=== PATIENT | female | born 1945 | race Caucasian/White ===

== ENCOUNTER → 2016-10-26 | Outpatient (CLI) | payer MEDICARE ==
[~2016-10-26] MED LIST: CALC-149 PO; CALC-656 PO; DCS100C PO; DIPH1TAB PO; EXEM25TA4 PO; FENO145T18 PO; FENO145T20 PO; GLIM1TAB PO; HYDR-34 PO; HYDR-3454 PO; IBP600T1 PO; INDA2.5T2 PO; LEVO500T69 PO; METR500T PO; MTF500T PO; MULT-963 PO; OXYC-12 PO; POTA8TAB PO; POTA8TAB6 PO; PRAV40TA PO; SAXA5TAB PO; SLOW-MAG64 M1 PO
[2016-10-26 09:30] LABS: BASOPHILS % (AUTO) 1 % (0-10); EOSINOPHILS # (AUTO) 0.1 10^3/uL (0.0-0.3); EOSINOPHILS % (AUTO) 1 % (0-10); LYMPHOCYTES # (AUTO) 1.4 X 10^3 (1.0-4.0); LYMPHOCYTES % (AUTO) 17 % (12-44); MEAN CORPUSCULAR HEMOGLOBIN 28 PG (25-34); MEAN CORPUSCULAR HGB CONC 33 G/DL (32-36); MEAN CORPUSCULAR VOLUME 86 FL (80-99); MEAN PLATELET VOLUME 9.3 FL (7.4-10.4); MONOCYTES # (AUTO) 0.4 X 10^3 (0.0-1.0); MONOCYTES % (AUTO) 5 % (0-12); NEUTROPHILS # (AUTO) 6.2 X 10^3 (1.8-7.8); NEUTROPHILS % (AUTO) 77 % (42-75); PLATELET COUNT 372 10^3/uL (130-400); RED BLOOD COUNT 4.89 10^6/uL (4.35-5.85); RED CELL DISTRIBUTION WIDTH 13.8 % (10.0-14.5); WHITE BLOOD COUNT 8.1 10^3/uL (4.3-11.0)
[2016-10-26 09:53] LABS: ALBUMIN 4.4 G/DL (3.2-4.5); BILIRUBIN,TOTAL 0.5 MG/DL (0.1-1.0); CALCIUM 9.7 MG/DL (8.5-10.1); CREATININE SERUM 1.04 MG/DL (0.60-1.30); POTASSIUM 3.5 MMOL/L (3.6-5.0); TOTAL PROTEIN 7.4 G/DL (6.4-8.2)
== END ==
LOC: ONC 09:22
PROVIDERS: ATTEND Internal Medicine Hematology & Oncology
DX: C50.411 Malignant neoplasm of upper-outer quadrant of right female breast (principal); Z17.0 Estrogen receptor positive status [ER+]; I10 Essential (primary) hypertension; E78.00 Pure hypercholesterolemia, unspecified; R73.9 Hyperglycemia, unspecified; Z90.11 Acquired absence of right breast and nipple; Z79.811 Long term (current) use of aromatase inhibitors
CPT/HCPCS: 80053; 85025; 99213

== ENCOUNTER 2017-04-13 08:52 | Outpatient (RCR) | payer MEDICARE ==
[2017-04-13 09:22] LABS: BASOPHILS # (AUTO) 0.1 10^3/uL (0.0-0.1); BASOPHILS % (AUTO) 1 % (0-10); EOSINOPHILS # (AUTO) 0.1 10^3/uL (0.0-0.3); EOSINOPHILS % (AUTO) 1 % (0-10); HEMATOCRIT 43 % (35-52); HEMOGLOBIN 14.3 G/DL (11.5-16.0); LYMPHOCYTES # (AUTO) 1.5 X 10^3 (1.0-4.0); LYMPHOCYTES % (AUTO) 18 % (12-44); MEAN CORPUSCULAR HEMOGLOBIN 29 PG (25-34); MEAN CORPUSCULAR HGB CONC 34 G/DL (32-36); MEAN CORPUSCULAR VOLUME 85 FL (80-99); MEAN PLATELET VOLUME 9.4 FL (7.4-10.4); MONOCYTES # (AUTO) 0.4 X 10^3 (0.0-1.0); MONOCYTES % (AUTO) 5 % (0-12); NEUTROPHILS # (AUTO) 6.1 X 10^3 (1.8-7.8); NEUTROPHILS % (AUTO) 75 % (42-75); PLATELET COUNT 349 10^3/uL (130-400); RED CELL DISTRIBUTION WIDTH 13.9 % (10.0-14.5); WHITE BLOOD COUNT 8.1 10^3/uL (4.3-11.0)
[2017-04-13 09:35] LABS: ALBUMIN 4.5 GM/DL (3.2-4.5); BILIRUBIN,TOTAL 0.4 MG/DL (0.1-1.0); CALCIUM 9.7 MG/DL (8.5-10.1); CREATININE SERUM 0.95 MG/DL (0.60-1.30); POTASSIUM 3.6 MMOL/L (3.6-5.0); TOTAL PROTEIN 7.9 GM/DL (6.4-8.2)
== END 2017-07-12 | disposition home or self-care (01) ==
LOC: ONC 08:52
PROVIDERS: ATTEND Internal Medicine Hematology & Oncology
DX: C50.411 Malignant neoplasm of upper-outer quadrant of right female breast (principal); Z17.0 Estrogen receptor positive status [ER+]; I10 Essential (primary) hypertension; E78.00 Pure hypercholesterolemia, unspecified; R73.9 Hyperglycemia, unspecified; Z90.11 Acquired absence of right breast and nipple; Z79.811 Long term (current) use of aromatase inhibitors
CPT/HCPCS: 80053; 85025; 99213

== ENCOUNTER → 2017-05-09 | Outpatient (CLI) | payer MEDICARE ==
--- NOTE | 2017-05-09 14:28 | Diagnostic Imaging Report ---
Three views of the lumbar spine. INDICATION: Back pain. FINDINGS: There is satisfactory alignment of the lumbar spine. There is a right convexity scoliotic curvature centered around L4 level. The vertebral body heights are preserved. There is tmmqetfs-ao-whxyrq disc height loss at the L5-S1 level with vacuum phenomenon seen. Prominent endplate sclerotic changes are noted at this level. Sclerotic degenerative changes at the lower lumbar spine facet joints also seen. The paraspinous soft tissues demonstrate surgical clips in the anterior lower aspect of the abdomen to the right of the midline. IMPRESSION: Degenerative changes most prominent at the L5-S1 disc and lower lumbar spine facet joints. Dictated by: Dictated on workstation # [id number]
--- NOTE | 2017-05-09 14:31 | Diagnostic Imaging Report ---
Three views of the thoracic spine. INDICATION: Back pain. FINDINGS: There is a left convexity scoliotic curvature centered around the lower thoracic spine. The alignment at the posterior spinal line is satisfactory. There are anterior osteophytes seen at multiple levels with no posterior osteophyte identified. The vertebral body heights and disc heights appear preserved. The paraspinal soft tissues appear unremarkable. IMPRESSION: Scoliosis and degenerative changes. Dictated by: Dictated on workstation # [id number]
== END ==
LOC: RAD 12:29
PROVIDERS: ATTEND Internal Medicine Hematology & Oncology
DX: M47.817 Spondylosis without myelopathy or radiculopathy, lumbosacral region (principal); R29.890 Loss of height
CPT/HCPCS: 72072; 72100

== ENCOUNTER → 2017-06-01 | Outpatient (CLI) | payer MEDICARE ==
--- NOTE | 2017-06-01 15:41 | Diagnostic Imaging Report ---
EXAMINATION: DEXA scan. INDICATION: Osteopenia. TECHNIQUE: Bone mineral density estimated based on dual energy radiography over the lumbar spine and femoral necks was performed. FINDINGS: The lumbar spine T-score is 0.7. This is 6.8% decreased density measurement compared to 01/08/2015. The T-score over the left femoral neck is 0.5 and over the right femoral neck is 0.4. This is 0.8% decreased density measurement compared to the previous exam. IMPRESSION: Bone mineral density is within normal limits. Dictated by: Dictated on workstation # [id number]
== END ==
LOC: RAD 10:10
PROVIDERS: ATTEND Internal Medicine Hematology & Oncology
DX: M85.88 Other specified disorders of bone density and structure, other site (principal); M54.9 Dorsalgia, unspecified; R29.890 Loss of height; Z78.0 Asymptomatic menopausal state; Z51.81 Encounter for therapeutic drug level monitoring
CPT/HCPCS: 77080

== ENCOUNTER → 2017-09-14 | Outpatient (CLI) | payer MEDICARE ==
--- NOTE | 2017-09-14 08:27 | Diagnostic Imaging Report ---
INDICATION: Right leg pain. Right leg venous Doppler study was performed in the routine fashion with color flow Doppler and waveform analysis. FINDINGS: The right common femoral vein, superficial femoral vein, popliteal vein and visualized portion of the tibial veins show normal compressibility and venous flow patterns. There is normal augmentation. IMPRESSION: No evidence of deep vein thrombosis of the major veins of the right leg. Dictated by: Dictated on workstation # [id number]
== END ==
LOC: RAD 07:32
PROVIDERS: ATTEND Internal Medicine
DX: M79.604 Pain in right leg (principal); R60.0 Localized edema

== ENCOUNTER 2017-11-15 10:42 | Outpatient (RCR) | payer MEDICARE | END 2017-11-15 15:20 | disposition home or self-care (01) | PROVIDERS: ATTEND Internal Medicine | DX: I87.2 Venous insufficiency (chronic) (peripheral) (principal); L30.9 Dermatitis, unspecified ==

== ENCOUNTER 2017-12-27 11:17 | Observation (INO) | payer MEDICARE ==
[~2017-12-27] VITALS: Ht 160 cm; Wt 81.4 kg
--- NOTE | 2017-12-27 11:45 | History & Physical-Hospitalist ---
History of Present Illness HPI/Chief Complaint Pt is a 72yoCF with PMH DMII, HLD, and HTN who presented as a direct admission after evaluation at her PCP's for a syncopal episode. She reports that she had 4 episodes of chest burning associated with a sweet/sickening smell and that she felt "bubbly" all over and felt sick to her stomach during that episode. They occurred when she was up walking. She reports that this has gone on intermittently for years but was only "once in a [place]" and she never had as many episodes or subsequent syncope due to this. She denies any tongue biting , incontinence, or post ictal period. She denies any symptoms at this time. Source: patient Date Seen 12/27/17 Time Seen by Provider: 11:40 Attending Physician Annmarie Preston MD PCP David Montelongo MD Referring Physician Date of Admission Dec 27, 2017 at 11:30 am Home Medications & Allergies Home Medications Reviewed patient Home Medication Reconciliation performed by pharmacy medication reconciliations automotive refinish technician and/or nursing. Patients Allergies have been reviewed. Allergies Allergies Coded Allergies amoxicillin (Unverified Allergy, Unknown, HIVES, 12/09/13) anastrozole (Unverified Allergy, Unknown, RASH, 12/09/13) latex (Unverified Allergy, Unknown, RASH, 12/09/13) letrozole (Verified Adverse Reaction, Unknown, "MUSCLE ACHES", 12/09/13) pravastatin (Unverified Adverse Reaction, Unknown, "MUSCLE ACHES", 12/09/13) simvastatin (Verified Adverse Reaction, Unknown, "MUSCLE ACHES", 12/09/13) Uncoded Allergies arim ( Allergy, Mild, itch and joint pain, 09/04/14) Past Ctwydga-[id number]-Tbgmkb Hx Past Med/Social Hx: Reviewed Nursing Past Med/Soc Hx, Reviewed and Corrections made Patient Social History 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[employer]) Smoking Status: Former Smoker (quit over 50 years ago) Recent Foreign Travel: No Contact w/other who traveled: No Immunizations Up To Date Tetanus Booster (TDap): More than 5yrs Pediatric: No Date of Pneumonia Vaccine: Jun 05, 2011 Date of Influenza Vaccine: Apr 05, 2013 Past Medical History Surgeries: Breast, Gallbladder, Hysterectomy Cardiac: High Cholesterol, Hypertension Reproductive: Yes (Adnexal Mass) Sexually Transmitted Disease: No HIV/AIDS: No Female Reproductive Disorders: Ovarian Cyst Gastrointestinal: Gall Bladder Disease Musculoskeletal: Arthritis, Chronic Back Pain Endocrine: Diabetes, Non-Insulin dep HEENT: Cataract Loss of Vision: Denies Hearing Impairment: Denies Cancer: Breast Adverse Reaction to Blood Hunter: No Family History Reviewed Nursing Family Hx Family history: Cardiovascular disease 03 FATHER 03 MOTHER 09 BROTHER Family history: Coronary thrombosis 03 MOTHER 09 BROTHER Stroke 03 FATHER Review of Systems Constitutional: No fever EENTM: No blurred vision, No double vision, No nose congestion, No throat pain Respiratory: No cough, No dyspnea on exertion, No short of breath Cardiovascular: chest pain (burning); No edema, No palpitations; syncope Gastrointestinal: No abdominal pain, No constipation, No diarrhea; nausea; No vomiting Genitourinary: No dysuria, No frequency, No hematuria, No incontinence Musculoskeletal: No joint pain, No muscle pain Skin: No lesions, No rash Psychiatric/Neurological: Denies Headache, Denies Numbness, Denies Tingling Physical Exam Physical Exam Vital Signs Vital Signs - First Documented 12/27/17 11:50 Temp 99.6 Pulse 91 Resp 20 B/P (MAP) 131/73 (92) Pulse Ox 95 O2 Delivery Room Air Capillary Refill : Height, Weight, BMI Height: 5'6.00" Weight: 147lbs. 2.0oz. 66.555801ds; BMI Method: General Appearance: No Apparent Distress, WD/WN HEENT: PERRL/EOMI, Moist Mucous Membranes Neck: Non Tender, Supple Respiratory: Lungs Clear, No Respiratory Distress Cardiovascular: Regular Rate, Rhythm, No Murmur Gastrointestinal: Normal Bowel Sounds, Non Tender, Soft Extremity: Normal Capillary Refill, No Calf Tenderness Neurologic/Psychiatric: Alert, Oriented x3, Normal Mood/Affect Skin: Normal Color, Warm/Dry Results Results/Procedures Labs Laboratory Tests 12/27/17 11:57 Patient resulted labs reviewed. Assessment/Plan Admission Diagnosis Syncope Admission Status: Observation Diagnosis/Problems Diagnosis/Problems (1) Syncope Assessment & Plan: Syncopal episode this AM Monitor on Telemetry Consult cardiology, discussed with Dr Tapia CBC, CMP, and Troponin ordered Well's criteria is 0 Qualifiers: Encounter type: initial encounter (2) Non-insulin dependent type 2 diabetes mellitus Status: Chronic Assessment & Plan: SSI (3) Prophylactic measure Assessment & Plan: Lovenox Saline Lock [facility] ANNMARIE Vega MD Dec 27, 2017 11:45 am
[2017-12-27] MEDS ORDERED: GLIM1TAB PO (11:47)
[2017-12-27] MEDS ORDERED: INDA2.5T2 PO (11:47)
[2017-12-27] MEDS ORDERED: SPIR50TA4 PO (11:47)
[2017-12-27 11:50] VITALS: BP 131/73
[2017-12-27] MEDS ORDERED: CHOL20003 PO (12:00)
[2017-12-27] MEDS ORDERED: OMG1KC PO (12:00)
[2017-12-27] MEDS ORDERED: ACET-2267 PO (12:01)
[2017-12-27 12:04] LABS: BASOPHILS % (AUTO) 0 % (0-10); EOSINOPHILS % (AUTO) 0 % (0-10); HEMATOCRIT 42 % (35-52); HEMOGLOBIN 14.2 G/DL (11.5-16.0); LYMPHOCYTES # (AUTO) 0.8 X 10^3 (1.0-4.0); LYMPHOCYTES % (AUTO) 7 % (12-44); MEAN CORPUSCULAR HEMOGLOBIN 28 PG (25-34); MEAN CORPUSCULAR HGB CONC 34 G/DL (32-36); MEAN CORPUSCULAR VOLUME 83 FL (80-99); MEAN PLATELET VOLUME 9.1 FL (7.4-10.4); MONOCYTES # (AUTO) 0.4 X 10^3 (0.0-1.0); MONOCYTES % (AUTO) 3 % (0-12); NEUTROPHILS # (AUTO) 10.8 X 10^3 (1.8-7.8); NEUTROPHILS % (AUTO) 90 % (42-75); PLATELET COUNT 336 10^3/uL (130-400); RED BLOOD COUNT 5.03 10^6/uL (4.35-5.85); RED CELL DISTRIBUTION WIDTH 14.3 % (10.0-14.5)
[2017-12-27 12:26] LABS: BUN/CREATININE RATIO 16; CALCIUM 9.7 MG/DL (8.5-10.1); CARBON DIOXIDE 25 MMOL/L (21-32); CHLORIDE 99 MMOL/L (98-107); CREATININE SERUM 0.85 MG/DL (0.60-1.30); GFR ESTIMATED > 60; GLUCOSE 157 MG/DL (70-105); POTASSIUM 3.6 MMOL/L (3.6-5.0); SODIUM 135 MMOL/L (135-145)
[2017-12-27 13:02] LABS: LYMPHOCYTES % (MANUAL) 8 %; MONOCYTES % (MANUAL) 1 %; NEUTROPHILS % (MANUAL) 91 %; RBC MORPH NORMAL
[2017-12-27] MEDS ORDERED: CATHETER FLUSH 10 ML SYR IV PRN (13:30)
[2017-12-27] MEDS ORDERED: ENOXAPARIN 40 MG/0.4 ML (LOVENOX) SYR SC SCH (14:00)
[2017-12-27] MEDS: CATHETER FLUSH 10 ML SYR IV SCH ×2 (14:13→22:00)
[2017-12-27] MEDS ORDERED: ACETAMINOPHEN 500 MG TAB (TYLENOL) PO PRN (15:15)
[2017-12-27] MEDS ORDERED: ANTACID SUSP 30 ML UDC (MYLANTA) PO PRN (15:15)
[2017-12-27] MEDS ORDERED: ONDANSETRON 4 MG/2 ML (SDV) Z0FRAN IV PRN (15:15)
[2017-12-27] MEDS ORDERED: MILK OF MAGNESIA 400 MG/5 ML 30 ML UDC PO PRN (15:15)
[2017-12-27] MEDS ORDERED: ACETAMINOPHEN 325 MG TABLET PO PRN (15:30)
[2017-12-27] MEDS: inSUlin ASPART (NovoLOG) 1 UNIT/0.01 ML (CHARGE PER UNIT) SC SCH ×2 (16:13→21:00)
[2017-12-27 16:18] VITALS: BP 146/68
--- NOTE | 2017-12-27 19:45 | Consultation-Cardiology ---
HPI-Cardiology Cardiology Consultation: Date of Consultation 12/27/17 Date of Admission Attending Physician Annmarie Preston MD Admitting Physician David Montelongo MD Consulting Physician Ayla TAPIA MD HPI: Time Seen by Provider: 19:45 Chief Complaint: chest burning and syncope This is a 72-year-old lady with history of diabetes, hyperlipidemia and hypertension who presented to her PCP office for syncopal episode. She had episodes of chest burning which was associated with sweet smelling sensation which gradually came down to her chest as burning. Burning sensation in bilateral upper extremities as well. She also complained of feeling sick to her stomach with nausea. She then went to the restroom and had a bowel movement after which she passed out. She denied having any seizure-like activity which including tongue biting and incontinence. According to the patient she's had significant workup which included PET scan in the past. Review of Systems-Cardiology Review of Systems Constitutional: As described under HPI; No As described under HPI, No no symptoms reported, No chills, No fever; lightheadedness Eyes: No As described under HPI, No no symptoms reported, No blindness, No blurred vision, No contact lenses, No drainage, No decreased acuity, No foreign body sensation, No pain, No vision change Ears/Nose/Throat: No As described under HPI, No no symptoms reported, No chronic hearing loss, No ear discharge, No ear pain, No nasal drainage, No ulcerations Respiratory: No no symptoms reported; As described under HPI; No As described under HPI, No cough, No orthopnea, No shortness of breath, No SOB with excertion Cardiovascular: No no symptoms reported; As described under HPI; No As described under HPI; chest pain; No edema, No irregular heart rate, No lightheadedness, No palpitations Gastrointestinal: No no symptoms reported, No As described under HPI, No abdomen distended, No abdominal pain, No blood streaked bowels, No constipation , No diarrhea, No nausea, No vomiting; nausea/vomiting/diarrhea; No stool coloration changes Genitourinary: No As described under HPI, No burning, No dysuria, No discharge , No frequency, No flank pain, No hematuria, No urgency : Yes : No Musculoskeletal: No no symptoms reported, No As describe under HPI, No back pain, No gout, No joint pain, No joint swelling, No muscle pain, No muscle stiffness, No neck pain, No other Skin: No no symptoms reported, No As described under HPI, No change in color, No change in hair/nails, No dryness, No lesions, No lumps, No rash, No other, No skin related problems, No ulcerations, No rash on exposed areas, No ulcerations on exposed areas Psychiatric/Neurological: numbness; No anxiety, No depression, No seizure, No focal weakness, No syncope Hematologic: No no symptoms reported, No As described under HPI, No anemia, No blood clots, No easy bleeding, No easy bruising, No swollen glands, No other, No bleeding abnormalities CLM-Mngcxn-Xvahbc Hx Patient Social History 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 Family Medical History Family History: Family history: Cardiovascular disease 03 FATHER 03 MOTHER 09 BROTHER Family history: Coronary thrombosis 03 MOTHER 09 BROTHER Stroke 03 FATHER Allergies and Home Medications Allergies Coded Allergies: amoxicillin (Unverified Allergy, Unknown, HIVES, 12/09/13) anastrozole (Unverified Allergy, Unknown, RASH, 12/09/13) latex (Unverified Allergy, Unknown, RASH, 12/09/13) letrozole (Verified Adverse Reaction, Unknown, "MUSCLE ACHES", 12/09/13) pravastatin (Unverified Adverse Reaction, Unknown, "MUSCLE ACHES", 12/09/13) simvastatin (Verified Adverse Reaction, Unknown, "MUSCLE ACHES", 12/09/13) Uncoded Allergies: arim (Allergy, Mild, itch and joint pain, 09/04/14) Home Medications Acetaminophen 500 Mg Tablet, 500 MG PO Q4H PRN for PAIN-MILD, (Reported) Cholecalciferol (Vitamin D3) 2,000 Unit Capsule, 2,000 UNIT PO DAILY, (Reported) Glimepiride 1 Mg Tablet, 1 MG PO DAILY, (Reported) Indapamide 2.5 Mg Tablet, 2.5 MG PO DAILY, (Reported) [place] 3 Polyunsat Fatty Acids 1,000 Mg Cap, 2,000 MG PO DAILY, (Reported) Spironolactone 50 Mg Tablet, 50 MG PO DAILY, (Reported) Patient Home Medication List Home Medication List Reviewed: Yes Physical Exam-Cardiology Physical Exam Vital Signs/I&O 12/28/17 12/28/17 12/28/17 12/28/17 00:00 01:00 04:00 07:00 Temp 97.6 97.1 Pulse 69 67 67 66 Resp 16 16 B/P (MAP) 121/57 (78) 126/61 (82) Pulse Ox 97 95 O2 Delivery Room Air Room Air 12/28/17 00:00 Intake Total 1750 ml Balance 1750 ml Capillary Refill : Constitutional: appears stated age, AAO x 3; No apparent distress; well- developed, well-nourished HEENT: PERRL; No normal ENT inspection, No TMs normal, No pharynx normal, No scleral icterus (R), No scleral icterus (L), No pale conjunctivae (R), No pale conjunctivae (L), No photophobia, No TM abnormal (R), No TM abnormal (L), No pharyngeal erythema, No tonsillar exudate, No other, No discharge, No EOMI; hearing is well preserved; No hard of hearing; oral hygience is good; No ulceration, No xanthelasmas are seen Neck: No non-tender, No full range of motion, No supple, No normal inspection, No carotid bruit, No limited range of motion, No lymphadenopathy (R), No lymphadenopathy (L), No tender lateral, No tender midline, No thyromegaly, No other; carotid pulses are 2 + bilaterally; No with good upstrokes Respiratory: chest is bilaterally symmetric, lungs clear to auscultation Cardiovascular: regular rate-rhythm; No irregularly irregular, No extra beats, No parasternal heave is noted, No JVD, No edema, No bradycardia, No tachycardia , No point of maximal impulse, No cardiac thrills are palpable; S1 and S2; No gallop/S3, No gallop/S4, No diastolic murmur, No systolic murmur, No friction rub, No click, No other Gastrointestinal: No tender, No soft, No round, No distended, No pulsatile mass , No organomegaly, No guarding, No rebound, No tenderness, No hernia, No mass, No audible bowel sounds, No abnormal bowel sounds, No abdominal bruits, No spleenomegaly, No other Rectal: deferred Extremities: No normal range of motion, No non-tender, No normal inspection, No pedal edema, No calf tenderness, No normal capillary refill, No pelvis stable , No calf tenderness, No inflammation, No pedal edema, No slow capillary refill , No swelling, No other, No abrasion, No clubbing, No cyanosis, No ecchymosis, No laceration, No no lower extremity edema bilateral, No significant edema, No tenderness, No wound Neurologic/Psychiatric: no motor/sensory deficits, alert, normal mood/affect, oriented x 3, power is 5/5 both on sides Skin: No normal color, No warm/dry, No cyanosis, No cool, No diaphoresis, No damp, No ecchymosis, No jaundice, No mottled, No pallor, No rash, No tattoos/ piercings, No ulcerations, No rash on exposed areas, No ulcerations on exposed areas, No other Data Review Labs Laboratory Tests 12/27/17 11:57: White Blood Count 12.0H, Red Blood Count 5.03, Hemoglobin 14.2, Hematocrit 42, Mean Corpuscular Volume 83, Mean Corpuscular Hemoglobin 28, Mean Corpuscular Hemoglobin Concent 34, Red Cell Distribution Width 14.3, Platelet Count 336, Mean Platelet Volume 9.1, Neutrophils (%) (Auto) 90H, Lymphocytes (%) (Auto) 7L , Monocytes (%) (Auto) 3, Eosinophils (%) (Auto) 0, Basophils (%) (Auto) 0, Neutrophils # (Auto) 10.8H, Lymphocytes # (Auto) 0.8L, Monocytes # (Auto) 0.4, Eosinophils # (Auto) 0.0, Basophils # (Auto) 0.0, Neutrophils % (Manual) 91, Lymphocytes % (Manual) 8, Monocytes % (Manual) 1, Blood Morphology Comment NORMAL, Sodium Level 135, Potassium Level 3.6, Chloride Level 99, Carbon Dioxide Level 25, Anion Gap 11, Blood Urea Nitrogen 14, Creatinine 0.85, Estimat Glomerular Filtration Rate > 60, BUN/Creatinine Ratio 16, Glucose Level 157H, Calcium Level 9.7, Troponin I < 0.30 12/27/17 16:07: Glucometer 123H 12/27/17 21:32: Glucometer 101 12/28/17 05:57: Glucometer 132H 12/28/17 06:14: White Blood Count 7.2, Red Blood Count 4.55, Hemoglobin 13.5, Hematocrit 38, Mean Corpuscular Volume 84, Mean Corpuscular Hemoglobin 30, Mean Corpuscular Hemoglobin Concent 35, Red Cell Distribution Width 14.1, Platelet Count 285, Mean Platelet Volume 9.3, Neutrophils (%) (Auto) 72, Lymphocytes (%) (Auto) 17, Monocytes (%) (Auto) 9, Eosinophils (%) (Auto) 2, Basophils (%) (Auto) 1, Neutrophils # (Auto) 5.2, Lymphocytes # (Auto) 1.2, Monocytes # (Auto) 0.6, Eosinophils # (Auto) 0.1, Basophils # (Auto) 0.1, Sodium Level 135, Potassium Level 3.3L, Chloride Level 103, Carbon Dioxide Level 23, Anion Gap 9, Blood Urea Nitrogen 11, Creatinine 0.75, Estimat Glomerular Filtration Rate > 60, BUN/ Creatinine Ratio 15, Glucose Level 134H, Calcium Level 8.9 ECG Impression ECG Initial ECG Rhythm: Normal Sinus Initial ECG Impression: Normal A/P-Cardiology Assessment/Admission Diagnosis Chest burning, Syncope, Diabetes, Hypertension, Hyperlipidemia Plan Chest burning, acute coronary syndrome was ruled out with negative serial troponin. Negative EKG. i will recommend echocardiogram and nuclear stress test tomorrow since patient has significant risk factors for obstructive CAD including diabetes, hypertension and hyperlipidemia. Syncope, echocardiogram, continue on telemetry. Will likely require an event monitor as an outpatient. Neurological etiology needs to be ruled out since the history is not very convincing for a cardiac etiology. Diabetes, oral hypoglycemics. Hypertension, continue indapamide. Hyperlipidemia, statin therapy. Thank you for your consultation. Please call me if you have any questions. Nilson Tapia MD, FACP, FACC, FSCAI, FHRS, CCDS Interventional Cardiology Cardiac Electrophysiology Vascular Medicine and Endovascular Interventions Clinical Quality Measures DVT/VTE Risk/Contraindication: Risk Factor Score Per Nursin RFS Level Per Nursing on Admit: 3=High Ayla TAPIA MD Dec 27, 2017 7:45 pm
[2017-12-27 20:44] VITALS: BP 152/69
[2017-12-28] VITALS (7 sets, daily range): BP systolic 119–149; BP diastolic 57–86
[2017-12-28] MEDS: CATHETER FLUSH 10 ML SYR IV SCH (06:00)
[2017-12-28] MEDS: inSUlin ASPART (NovoLOG) 1 UNIT/0.01 ML (CHARGE PER UNIT) SC SCH ×2 (06:00→11:48)
[2017-12-28 06:24] LABS: BASOPHILS # (AUTO) 0.1 10^3/uL (0.0-0.1); BASOPHILS % (AUTO) 1 % (0-10); EOSINOPHILS # (AUTO) 0.1 10^3/uL (0.0-0.3); EOSINOPHILS % (AUTO) 2 % (0-10); HEMATOCRIT 38 % (35-52); HEMOGLOBIN 13.5 G/DL (11.5-16.0); LYMPHOCYTES # (AUTO) 1.2 X 10^3 (1.0-4.0); LYMPHOCYTES % (AUTO) 17 % (12-44); MEAN CORPUSCULAR HEMOGLOBIN 30 PG (25-34); MEAN CORPUSCULAR HGB CONC 35 G/DL (32-36); MEAN CORPUSCULAR VOLUME 84 FL (80-99); MEAN PLATELET VOLUME 9.3 FL (7.4-10.4); MONOCYTES # (AUTO) 0.6 X 10^3 (0.0-1.0); MONOCYTES % (AUTO) 9 % (0-12); NEUTROPHILS # (AUTO) 5.2 X 10^3 (1.8-7.8); NEUTROPHILS % (AUTO) 72 % (42-75); PLATELET COUNT 285 10^3/uL (130-400); RED BLOOD COUNT 4.55 10^6/uL (4.35-5.85); RED CELL DISTRIBUTION WIDTH 14.1 % (10.0-14.5); WHITE BLOOD COUNT 7.2 10^3/uL (4.3-11.0)
[2017-12-28 06:43] LABS: BUN/CREATININE RATIO 15; CALCIUM 8.9 MG/DL (8.5-10.1); CARBON DIOXIDE 23 MMOL/L (21-32); CHLORIDE 103 MMOL/L (98-107); CREATININE SERUM 0.75 MG/DL (0.60-1.30); GFR ESTIMATED > 60; GLUCOSE 134 MG/DL (70-105); POTASSIUM 3.3 MMOL/L (3.6-5.0); SODIUM 135 MMOL/L (135-145)
[2017-12-28] MEDS ORDERED: REGADENOSON 0.4 MG/5 ML SYR (LEXISCAN) IV ONE ×2 (08:59→10:15)
[2017-12-28] MEDS ORDERED: INDAPAMIDE 2.5 MG (LOZOL) TAB PO SCH (11:00)
--- NOTE | 2017-12-28 11:47 | Discharge Inst-Simple/Standard ---
Discharge Inst-Standard Patient Instructions/Follow Up Plan of Care/Instructions/FU: Please continue to take your medications as written. Please follow up with Dr Montelongo in the next week. Activity as Tolerated: Yes Discharge Diet: ADA Diet Return to The Hospital For: Chest pain, SOB, syncope, if you feel you are getting worse. MONISHA RENNER MD Dec 28, 2017 11:47 am
--- NOTE | 2017-12-28 16:58 | Cardiology Stress Test Report ---
Stress Test Report Type of NM Stress Test: Test Type: LEXISCAN 0.4MG/5ML Date of Procedure/Referring: Date of Procedure: Dec 28, 2017 PCP Annmarie Preston MD Admitting Physician David Montelongo MD Indications: Chest burning, syncope Baseline Blood Pressure: Blood Pressure Systolic: 140 Blood Pressure Diastolic: 67 Baseline EKG: Baseline EKG: sinus rhythm Summary: The patient was brought to the stress lab after informed consent was taken. Lexiscan stress test was performed according to the protocol. 0.4 mg of IV Lexiscan was given. Low-grade exercise was performed. Baseline EKG showed sinus rhythm at 70 BPM with blood pressure 130/63 mmHg. Maximum heart rate of 94 bpm and blood pressure of 149/86 mmHg. No chest pain, EKG changes or arrhythmias were noted. 10.95 mCi of Myoview were given for rest imaging and 29.5 mCi of Myoview were given for stress imaging. Transient ischemic dilatation score 1.06. Ejection fraction 73 percent with no wall motion abnormalities. Normal perfusion was noted during stress and rest imaging. Conclusion: Pharmacological stress test is negative. Normal LV function. Normal myocardial perfusion during rest and stress. Ayla ELISE MD Dec 28, 2017 16:58
[2017-12-29] MEDS ORDERED: INDAPAMIDE 2.5 MG PO SCH (09:00)
--- NOTE | 2018-01-03 15:31 | Physician Query-Final Dx ---
HERNANDEZ CAMPOS 01/03/18 1531: Final Diagnosis Give Final Diagnosis Please give Final Diagnosis MONISHA RENNER MD 01/08/182037: Final Diagnosis Give Final Diagnosis Syncope HERNANDEZ CAMPOS Jan 03, 2018 15:31 MONISHA RENNER MD Jan 08, 2018 20:38
== END 2017-12-28 15:43 | disposition home or self-care (01) ==
LOC: 4TH 11:30 → UNDOADMIN 11:30 → 4TH 11:50 → EDSTATUS 16:05 → 4TH 12-28 13:37 → UNDODISIN 12-28 15:43
PROVIDERS: ADMIT Internal Medicine; ATTEND Family Medicine
DX: R55 Syncope and collapse (principal); E11.9 Type 2 diabetes mellitus without complications; R07.89 Other chest pain; R20.8 Other disturbances of skin sensation; E78.00 Pure hypercholesterolemia, unspecified; E78.5 Hyperlipidemia, unspecified; I10 Essential (primary) hypertension; Z87.891 Personal history of nicotine dependence; Z79.84 Long term (current) use of oral hypoglycemic drugs
CPT/HCPCS: 36415; 78452; 80048; 82962; 84484; 85007; 85025; 85027; 93017; 93306; 99211; G0378

== ENCOUNTER 2017-12-28 16:32 | Outpatient (RCR) | payer MEDICARE ==
[~2017-12-28 16:32] MED LIST changes: +ACET-2267 PO; +CHOL20003 PO; +OMG1KC PO; +SPIR50TA4 PO
== END 2018-01-02 | disposition home or self-care (01) ==
LOC: CARD 16:32
PROVIDERS: ATTEND Internal Medicine Interventional Cardiology
DX: R55 Syncope and collapse (principal)
CPT/HCPCS: 93225; 93226

== ENCOUNTER 2018-02-01 09:30 | Outpatient (RCR) | payer MEDICARE | END 2018-02-02 | disposition home or self-care (01) | LOC: CARD 09:30 | PROVIDERS: ATTEND Internal Medicine Interventional Cardiology | DX: R55 Syncope and collapse (principal) | CPT/HCPCS: 93270 ==

== ENCOUNTER 2018-02-21 09:10 | Emergency (ER) | payer MEDICARE ==
[~2018-02-21] VITALS: Ht 160 cm; Wt 80.7 kg
--- NOTE | 2018-02-21 09:24 | ED Chest Pain ---
General Stated Complaint: CHEST PRESSURE Source: patient, family Exam Limitations: no limitations History of Present Illness Date Seen by Provider: Feb 21, 2018 Time Seen by Provider: 09:20 Initial Comments Patient presents to ER by private conveyance with chief complaint she started having some pressure and feeling tired and weak in her legs around 8:30 this morning. She is followed by Dr. Tapia and he put her on a monitor looking for atrial fibrillation she's been having a history of some palpitations and periods of weakness. She is not on blood thinners and does not take aspirin because she has some kind of bleeding disorder according to her doctor. She is not having any pain cough shortness of breath. She's never had a heart attack and is on some diuretics for dependent edema but no history of high blood pressure. She has no hypercholesterolemia or hypothyroidism. She quit smoking many years ago. She does have some borderline diabetes and is on glimepiride. Allergies and Home Medications Allergies Coded Allergies: amoxicillin (Unverified Allergy, Unknown, HIVES, 12/09/13) anastrozole (Unverified Allergy, Unknown, RASH, 12/09/13) latex (Unverified Allergy, Unknown, RASH, 12/09/13) letrozole (Verified Adverse Reaction, Unknown, "MUSCLE ACHES", 12/09/13) pravastatin (Unverified Adverse Reaction, Unknown, "MUSCLE ACHES", 12/09/13) simvastatin (Verified Adverse Reaction, Unknown, "MUSCLE ACHES", 12/09/13) Uncoded Allergies: arim (Allergy, Mild, itch and joint pain, 09/04/14) Home Medications Acetaminophen 500 Mg Tablet, 500 MG PO Q4H PRN for PAIN-MILD, (Reported) Cholecalciferol (Vitamin D3) 2,000 Unit Capsule, 2,000 UNIT PO DAILY, (Reported) Glimepiride 1 Mg Tablet, 1 MG PO DAILY, (Reported) Indapamide 2.5 Mg Tablet, 2.5 MG PO DAILY, (Reported) [place] 3 Polyunsat Fatty Acids 1,000 Mg Cap, 2,000 MG PO DAILY, (Reported) Spironolactone 50 Mg Tablet, 50 MG PO DAILY, (Reported) Patient Home Medication List Home Medication List Reviewed: Yes Review of Systems Review of Systems Constitutional: No chills, No diaphoresis EENTM: No Blurred Vision, No Double Vision Respiratory: Denies Cough, Denies Shortness of Air Cardiovascular: Denies Chest Pain, Denies Edema; Lightheadedness; Denies Palpitations, Denies Syncope; Other (chest pressure) Gastrointestinal: Denies Constipated, Denies Diarrhea, Denies Nausea, Denies Vomiting Genitourinary: Denies Burning, Denies Drainage Musculoskeletal: No back pain, No joint pain Skin: No pruritus, No rash Past Cbxypyu-Jujegu-Rgquer Hx Patient Social History Alcohol Use: Denies Use Recreational Drug Use: No Smoking Status: Former Smoker Immunizations Up To Date Tetanus Booster (TDap): More than 5yrs PED Vaccines UTD: No Date of Pneumonia Vaccine: Jun 05, 2011 Date of Influenza Vaccine: Apr 05, 2013 Seasonal Allergies Seasonal Allergies: Yes Past Medical History Surgeries: Yes (LEFT AXILLARY lymph node removal, BILAT MASTE, NOSE SX, ) Breast, Gallbladder, Hysterectomy Respiratory: No Cardiac: Yes High Cholesterol, Hypertension Neurological: No Reproductive Disorders: Yes (Adnexal Mass) Female Reproductive Disorders: Ovarian Cyst Sexually Transmitted Disease: No HIV/AIDS: No Genitourinary: No Gastrointestinal: Yes Gall Bladder Disease Musculoskeletal: Yes (MUSCLE PAINS AND CRAMPS) Arthritis Endocrine: Yes ("borderline diabetes") Diabetes, Non-Insulin dep Cataract Loss of Vision: Denies Hearing Impairment: Denies Cancer: Yes (irma mastectomy) Breast Psychosocial: No Integumentary: No Blood Disorders: No (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 9.0oz. [id number]; 31.5 BMI Method: General Appearance: No Apparent Distress, WD/WN HEENT: PERRL/EOMI, Pharynx Normal, Moist Mucous Membranes Neck: Full Range of Motion, Non Tender, Supple Respiratory: Chest Non Tender, Lungs Clear, Normal Breath Sounds, No Accessory Muscle Use, No Respiratory Distress Cardiovascular: Regular Rate, Rhythm, No Edema, Normal Peripheral Pulses Gastrointestinal: Normal Bowel Sounds, Non Tender, Soft Extremity: Normal Capillary Refill, No Pedal Edema Neurologic/Psychiatric: Alert, Oriented x3 Skin: Normal Color, Warm/Dry Progress/Results/Core Measures Results/Orders Lab Results Laboratory Tests Test 02/21/18 09:29 02/21/18 09:40 02/21/18 11:10 Range/Units White Blood Count 9.6 4.3-11.0 10^3/uL Red Blood Count 4.77 4.35-5.85 10^6/uL Hemoglobin 13.8 11.5-16.0 G/DL Hematocrit 40 35-52 % Mean Corpuscular Volume 84 80-99 FL Mean Corpuscular Hemoglobin 29 25-34 PG Mean Corpuscular Hemoglobin Concent 35 32-36 G/DL Red Cell Distribution Width 14.3 10.0-14.5 % Platelet Count 337 130-400 10^3/uL Mean Platelet Volume 9.3 7.4-10.4 FL Neutrophils (%) (Auto) 82 H 42-75 % Lymphocytes (%) (Auto) 12 12-44 % Monocytes (%) (Auto) 5 0-12 % Eosinophils (%) (Auto) 0 0-10 % Basophils (%) (Auto) 1 0-10 % Neutrophils # (Auto) 7.9 H 1.8-7.8 X 10^3 Lymphocytes # (Auto) 1.1 1.0-4.0 X 10^3 Monocytes # (Auto) 0.5 0.0-1.0 X 10^3 Eosinophils # (Auto) 0.0 0.0-0.3 10^3/uL Basophils # (Auto) 0.1 0.0-0.1 10^3/uL Prothrombin Time 13.0 12.2-14.7 SEC INR Comment 1.0 0.8-1.4 Activated Partial Thromboplast Time 32 24-35 SEC Sodium Level 130 L 135-145 MMOL/L Potassium Level 3.3 L 3.6-5.0 MMOL/L Chloride Level 97 L 98-107 MMOL/L Carbon Dioxide Level 21 21-32 MMOL/L Anion Gap 12 5-14 MMOL/L Blood Urea Nitrogen 13 7-18 MG/DL Creatinine 0.80 0.60-1.30 MG/DL Estimat Glomerular Filtration Rate > 60 BUN/Creatinine Ratio 16 Glucose Level 219 H 70-105 MG/DL Calcium Level 9.3 8.5-10.1 MG/DL Corrected Calcium 9.2 8.5-10.1 MG/DL Magnesium Level 2.1 1.8-2.4 MG/DL Total Bilirubin 0.4 0.1-1.0 MG/DL Aspartate Amino Transf (AST/SGOT) 27 5-34 U/L Alanine Aminotransferase (ALT/SGPT) 18 0-55 U/L Alkaline Phosphatase 75 40-136 U/L Myoglobin 74.3 10.0-92.0 NG/ML Troponin I < 0.30 < 0.30 <0.30 NG/ML B-Type Natriuretic Peptide 34.3 <100.0 PG/ML Total Protein 7.2 6.4-8.2 GM/DL Albumin 4.1 3.2-4.5 GM/DL Glucometer 193 H 70-110 MG/DL My Orders Orders - SHERRY FORTE Cbc With Automated Diff (02/21/18 09:20) Magnesium (02/21/18 09:20) Chest 1 View, Ap/Pa Only (02/21/18 09:20) Ekg Tracing (02/21/18 09:20) Cardiac Profile 1 (02/21/18 09:20) Comprehensive Metabolic Panel (02/21/18 09:20) Myoglobin Serum (02/21/18 09:20) Protime With Inr (02/21/18:20) Partial Thromboplastin Time (02/21/18:20) O2 (02/21/18 09:20) Monitor-Rhythm Ecg Trace Only (02/21/18:20) Lipid Panel (02/22/18 06:00) Nitroglycerin 0.4 Mg Btl 25's (Nitrostat (02/21/18 09:30) Saline Lock/Iv-Start (02/21/18 09:20) BNP (02/21/18 09:20) Accucheck Stat ONCE (02/21/18 09:24) Troponin I (02/21/18 10:56) Ekg Tracing (02/21/18 10:56) Potassium Chloride (Tablet) (K Dur Table (02/21/18 11:45) Medications Given in ED Current Medications Medications Dose Ordered Sig/Lucy Route Start Time Stop Time Status Last Admin Dose Admin Nitroglycerin 0.4 mg UD PRN SL 02/21/18 09:30 02/21/18 09:33 0.4 MG Vital Signs/I&O 02/21/18 09:10 Temp 97.8 Pulse 70 Resp 18 B/P (MAP) 152/109 (123) Pulse Ox 97 O2 Delivery Room Air Progress Progress Note : Time: 10:51 Progress Note ED ACS 14 points. Low risk by the EDACS Score. If the patient also has: (1) EKG without new ischemic changes and (2) negative initial and 2-hour troponins, then this patient is safe for discharge to early outpatient follow-up investigation (or proceed to earlier inpatient testing). If EKG with ischemic changes or positive troponin, they are not low risk and require normal risk stratification. Initial ECG Impression Date: Feb 21, 2018 Initial ECG Impression Time: 09:16 Initial ECG Rate: 79 Initial ECG Rhythm: Normal Sinus Initial ECG Intervals: Normal Initial ECG Impression: Normal Initial ECG Comparisson: Unchanged Comment No ST elevation or depression EKG : EKG Time: 11:06 Rate: 66 Rhythm: Normal Sinus Intervals: Normal ECG Comparisson: Unchanged ECG Impression: Normal Comment No ST elevation or depression. Diagnostic Imaging Diagonstic Imaging: Xray Plain Films/CT/US/NM/MRI: chest Comments VIA [facility], [facility]. [place], [place] NAME: ROSY MILLER [facility] REC#: [id number] PT STATUS: REG ER : 1945 PHYSICIAN: SHERRY FORTE MD ADMIT DATE: 02/21/18/ER Draft Date of Exam:02/21/18 CHEST 1 VIEW, AP/PA ONLY INDICATION: Chest pain. TIME OF EXAM: 09:38 a.m. Correlation is made with prior study from 11/12/2012. The heart size is stable. The lungs are hyperinflated consistent with COPD. No infiltrates are detected. No effusion or pneumothorax is seen. IMPRESSION: COPD. No acute features detected. Dictated on workstation # [id number] Dict: 02/21/18 0955 Trans: 02/21/18 0957 [facility] [id number] Interpreted by: KIMBERLEY CAIN MD Electronically signed by: Reviewed: Reviewed by Me Consults : Consulting Physician: Ayla TAPIA MD Consults Notes He reviewed the patient's chart and says she had a nuclear's medicine study in December and he would follow her up in the clinic in 2 weeks after we do a two-hour rule out troponin. Departure Impression Primary Impression: Chest tightness or pressure Disposition: HOME, SELF-CARE Condition: Improved Departure-Patient Inst. Decision time for Depature: 12:04 Referrals: SIMONE SAHU MD (PCP) Primary Care Physician Ayla TAPIA MD Patient Instructions: Chest Pain That Is Not Caused by the Heart (DC) Add. Discharge Instructions: Keep your follow-up appointment on March [address] Tapia, cardiology. Return to the ER if you begin to experience chest pain, shortness of breath, pressure or other concerning symptoms. Work/School Note: Work Release Form Date Seen in the Emergency Department: Feb 21, 2018 Return to Work: Feb 22, 2018 Restrictions: No Restrictions Copy Copies To 1: Ayla TAPIA MD, TITUS J Feb 21, 2018 09:24
[2018-02-21] MEDS ORDERED: NITROGLYCERIN 0.4 MG SL TABS BTL 25'S SL PRN (09:30)
[2018-02-21 09:48] LABS: BASOPHILS # (AUTO) 0.1 10^3/uL (0.0-0.1); BASOPHILS % (AUTO) 1 % (0-10); EOSINOPHILS % (AUTO) 0 % (0-10); HEMATOCRIT 40 % (35-52); HEMOGLOBIN 13.8 G/DL (11.5-16.0); LYMPHOCYTES # (AUTO) 1.1 X 10^3 (1.0-4.0); LYMPHOCYTES % (AUTO) 12 % (12-44); MEAN CORPUSCULAR HEMOGLOBIN 29 PG (25-34); MEAN CORPUSCULAR HGB CONC 35 G/DL (32-36); MEAN CORPUSCULAR VOLUME 84 FL (80-99); MEAN PLATELET VOLUME 9.3 FL (7.4-10.4); MONOCYTES # (AUTO) 0.5 X 10^3 (0.0-1.0); MONOCYTES % (AUTO) 5 % (0-12); NEUTROPHILS # (AUTO) 7.9 X 10^3 (1.8-7.8); NEUTROPHILS % (AUTO) 82 % (42-75); PLATELET COUNT 337 10^3/uL (130-400); RED BLOOD COUNT 4.77 10^6/uL (4.35-5.85); RED CELL DISTRIBUTION WIDTH 14.3 % (10.0-14.5); WHITE BLOOD COUNT 9.6 10^3/uL (4.3-11.0)
--- NOTE | 2018-02-21 09:57 | Diagnostic Imaging Report ---
INDICATION: Chest pain. TIME OF EXAM: 09:38 a.m. Correlation is made with prior study from 11/12/2012. The heart size is stable. The lungs are hyperinflated consistent with COPD. No infiltrates are detected. No effusion or pneumothorax is seen. IMPRESSION: COPD. No acute features detected. Dictated by: Dictated on workstation # [id number]
[2018-02-21 10:09] LABS: ALANINE AMINOTRANSFERASE 18 U/L (0-55); ALBUMIN 4.1 GM/DL (3.2-4.5); ALKALINE PHOSPHATASE 75 U/L (40-136); BILIRUBIN,TOTAL 0.4 MG/DL (0.1-1.0); BUN/CREATININE RATIO 16; CALCIUM 9.3 MG/DL (8.5-10.1); CARBON DIOXIDE 21 MMOL/L (21-32); CHLORIDE 97 MMOL/L (98-107); GFR ESTIMATED > 60; GLUCOSE 219 MG/DL (70-105); MAGNESIUM 2.1 MG/DL (1.8-2.4); POTASSIUM 3.3 MMOL/L (3.6-5.0); SODIUM 130 MMOL/L (135-145); TOTAL PROTEIN 7.2 GM/DL (6.4-8.2)
[2018-02-21 10:18] LABS: MYOGLOBIN SERUM 74.3 NG/ML (10.0-92.0)
--- OUTSIDE RECORDS SUMMARY | 2018-02-21 10:48 | XMS REPORT | Continuity of Care Document ---
Author Author [facility] Organization [facility] Address Unknown Phone Unavailable Allergies Active Description Code Type Severity Reaction Onset Reported/Identified Relationship to Patient Clinical Status Yes amoxicillin [id number] Drug Allergy Unknown HIVES 12/09/2013 Yes anastrozole [id number] Drug Allergy Unknown RASH 12/09/2013 Yes latex [id number] Drug Allergy Unknown RASH 12/09/2013 Yes letrozole [id number] Drug Allergy Unknown "MUSCLE ACHES" 12/09/2013 Yes pravastatin [id number] Drug Allergy Unknown "MUSCLE ACHES" 12/09/2013 Yes simvastatin [id number] Drug Allergy Unknown "MUSCLE ACHES" 12/09/2013 Yes arim arim Mild itch and joint 09/04/2014 Medications There is no data. 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 05/15/2013 YADIEL MURPHY DO Ot 250.00 DIAB JOLYNN WO COMPL, TYPE II OR UNSPEC TY 05/15/2013 YADIEL MURPHY DO C Ot 401.9 HYPERTENSION NOS 05/15/2013 YADIEL MURPHY DO Ot 614.6 FEM PELVIC PERITON ADH-POST-OP/INF 05/15/2013 YADIEL MURPHY DO Ot 620.2 OVARIAN CYST NEC/NOS 05/15/2013 YADIEL MURPHY DO Ot 621.0 POLYP OF CORPUS UTERI 05/15/2013 YADIEL MURPHY DO Ot V49.81 ASYMPT POSTMENOPAUSAL STATUS (AGE-RELATE 06/23/2013 SIMON DIANDRA Chavez Ot 174.9 MALIGN NEOPL BREAST NOS 12/11/2013 YADIEL MURPHY DO Ot 574.10 CHOLELITH W CHOLECYS NEC 12/11/2013 YADIEL MURPHY DO C Ot 575.6 GB CHOLESTEROLOSIS 12/11/2013 YADIEL MURPHY DO Ot 618.01 CYSTOCELE, MIDLINE 12/11/2013 YADIEL MURPHY DO Ot 618.04 RECTOCELE 12/11/2013 YADIEL MURPHY DO Ot 790.29 OTHER ABNORMAL GLUCOSE 12/15/2013 SIMONDIANDRA Ot 174.9 MALIGN NEOPL BREAST NOS 04/07/2014 SIMONDIANDRA Ot 174.9 MALIGN NEOPL BREAST NOS 06/04/2014 SIMONDIANDRA N Ot 174.9 06/24/2014 GRUPO JAIN SHEET ROLLER OPERATOR Ot 174.9 07/03/2014 GRUPO JAIN SHEET ROLLER OPERATOR Ot 174.9 07/13/2014 DIANDRA MONTES N Ot 174.9 MALIGN NEOPL BREAST NOS 09/04/2014 Ot V10.3 09/04/2014 Ot V76.11 09/04/2014 Ot V10.3 09/04/2014 Ot V76.11 09/04/2014 Ot V10.3 09/04/2014 Ot V76.11 09/04/2014 Ot 793.89 09/04/2014 Ot V10.3 09/04/2014 Ot V76.11 09/04/2014 Ot 611.72 09/04/2014 ADELINA BLUE, SIMONE Collins Ot 272.4 09/04/2014 ADELINA BLUE, SIMONE Collins Ot 611.72 09/04/2014 SAM BLUE, RIA Ot 174.9 09/04/2014 SAM BLUE, RIA Ot V72.63 09/04/2014 SAM BLUE, RIA Ot V72.81 09/04/2014 SAM BLUE, RIA Ot V72.83 09/04/2014 SAM BLUE, RIA Ot V74.8 09/04/2014 SIMON, BOBAN N Ot 174.9 09/04/2014 SIMON, BOBAN N Ot 174.9 09/04/2014 GRUPO JAIN S SHEET ROLLER OPERATOR Ot 174.9 09/04/2014 JAIN GRUPO S SHEET ROLLER OPERATOR Ot 625.8 09/04/2014 JAIN GRUPO S SHEET ROLLER OPERATOR Ot 793.99 09/04/2014 MURPHY DO, YADIEL C Ot 625.8 09/04/2014 MURPHY DO, YADIEL C Ot 793.5 09/04/2014 MURPHY DO, YADIEL C Ot 174.9 09/04/2014 MURPHY DO, YADIEL C Ot 620.2 09/04/2014 MURPHY DO, YADIEL C Ot V72.63 09/04/2014 MURPHY DO, YADIEL C Ot V74.8 09/04/2014 JAIN GRUPO S SHEET ROLLER OPERATOR Ot 174.9 09/04/2014 JAIN GRUPO S SHEET ROLLER OPERATOR Ot 780.79 09/04/2014 ADELINA BLUE, SIMONE Collins Ot 574.20 09/04/2014 ADELINA BLUE, SIMONE Collins Ot 575.6 09/04/2014 MURPHY DO, YADIEL C Ot 574.20 09/04/2014 MURPHY DO, YADIEL C Ot 618.01 09/04/2014 MURPHY DO, YADIEL C Ot V72.63 09/04/2014 MURPHY DO, YADIEL C Ot V74.8 09/04/2014 SUSY GRUPO S SHEET ROLLER OPERATOR Ot 174.9 09/04/2014 JAIN GRUPO S SHEET ROLLER OPERATOR Ot 174.9 09/04/2014 SIMON, BOBAN N Ot 174.9 09/04/2014 SIMON, BOBAN N Ot 174.9 09/05/2014 ADELINA BLUE, SIMONE Collins Ot 250.01 09/05/2014 ADELINA BLUE, SIMONE Collins Ot 272.4 09/05/2014 ADELINA BLUE, SIMONE Collins Ot 540.0 09/05/2014 ADELINA BLUE, SIMONE Collins Ot 716.90 09/05/2014 ADELINA BLUE, SIMONE Collins Ot V10.3 09/05/2014 ADELINA BLUE, SIMONE Collins Ot V12.59 09/05/2014 ADELINA BLUE, SIMONE Collins Ot V15.82 09/05/2014 SIMONE SAHU MD Ot V45.71 09/05/2014 ADELINA BLUE, SIMONE Collins Ot 250.01 09/05/2014 ADELINA BLUE, SIMONE Collins Ot 272.4 09/05/2014 ADELINA BLUE, SIMONE Collins Ot 540.0 09/05/2014 SIMONE SAHU MD Ot 716.90 09/05/2014 ADELINA BLUE, SIMONE Collins Ot V10.3 09/05/2014 SIMONE SAHU MD Ot V12.59 09/05/2014 SIMONE SAHU MD Ot V15.82 09/05/2014 SIMONE SAHU MD Ot V45.71 09/08/2014 ADELINA BLUE, SIMONE Collins Ot 250.01 DIAB JOLYNN WO COMPL, TYPE I [JUVENILE TYP 09/08/2014 ADELINA BLUE, SIMONE Collins Ot 272.4 HYPERLIPIDEMIA NEC/NOS 09/08/2014 SIMONE SAHU MD Ot 540.0 AC APPEND W PERITONITIS 09/08/2014 SIMONE SAHU MD Ot 716.90 ARTHROPATHY NOS-UNSPEC 09/08/2014 DAELINA BLUE, SIMONE Collins Ot V10.3 HX OF BREAST MALIGNANCY 09/08/2014 SIMONE SAHU MD Ot V12.59 HX-CIRCULATORY SYST DIS,NEC 09/08/2014 ADELINA BLUE, SIMONE Collins Ot V15.82 HISTORY OF TOBACCO USE 09/08/2014 ADELINA BLUE, SIMONE Collins Ot V45.71 ACQUIRED ABSENCE OF BREAST AND NIPPLE 09/29/2014 SIMON, BOBAN N Ot 174.9 10/06/2014 SIMON, BOBAN N Ot 174.9 10/07/2014 SIMON, BOBAN N Ot 174.9 11/26/2014 SIMON, BOBAN N Ot 174.9 11/28/2014 SIMON, BOBAN N Ot 174.9 01/04/2015 SIMON, BOBAN N Ot 174.9 MALIGN NEOPL BREAST NOS 01/05/2015 SIMON, BOBAN N Ot 174.9 01/06/2015 SIMON, BOBAN N Ot 174.9 01/14/2015 SIMON, BOBAN N Ot 174.9 01/14/2015 SIMON, BOBAN N Ot 995.20 01/20/2015 SIMON, BOBAN N Ot 174.9 01/27/2015 SIMON, BOBAN N Ot 174.9 01/27/2015 DIANDRA MONTES N Ot 174.9 02/10/2015 DIANDRA MONTES N Ot 174.9 02/10/2015 DIANDRA MONTES N Ot 995.20 03/04/2015 DIANDRA MONTES N Ot 174.9 MALIGN NEOPL BREAST NOS 03/04/2015 DIANDRA MONTES N Ot 174.9 05/04/2015 GRUPO JAIN SHEET ROLLER OPERATOR Ot C50.919 05/07/2015 GRUPO JAIN SHEET ROLLER OPERATOR Ot C50.919 10/05/2015 ADELINA BLUE, SIMONE Collins Ot E78.5 HYPERLIPIDEMIA, UNSPECIFIED 10/05/2015 ADELINA BLUE, SIMONE Collins Ot E78.5 HYPERLIPIDEMIA, UNSPECIFIED 10/05/2015 ADELINA BLUE, SIMONE Collins Ot E78.5 HYPERLIPIDEMIA, UNSPECIFIED 10/06/2015 DIANDRA MONTES N Ot C50.919 MALIGNANT NEOPLASM OF UNSP SITE OF UNSPE 10/07/2015 ADELINA BLUE, SIMONE Collins Ot E78.0 PURE HYPERCHOLESTEROLEMIA 10/07/2015 ADELINA BLUE, SIMONE Collins Ot E78.0 PURE HYPERCHOLESTEROLEMIA 10/07/2015 ADELINA BLUE, SIMONE Collins Ot E78.0 PURE HYPERCHOLESTEROLEMIA 10/12/2015 ADELINA BLUE, SIMONE Collins Ot E78.0 PURE HYPERCHOLESTEROLEMIA 10/15/2015 ADELINA BLUE, SIMONE Collins Ot E78.0 PURE HYPERCHOLESTEROLEMIA 10/20/2015 ADELINA BLUE, SIMONE Collins Ot R60.0 LOCALIZED EDEMA 10/20/2015 ADELINA BLUE, SIMONE Collins Ot R06.00 DYSPNEA, UNSPECIFIED 10/20/2015 ADELINA BLUE, SIMONE Collins Ot R22.42 LOCALIZED SWELLING, MASS AND LUMP, LEFT 10/27/2015 DIANDRA MONTES N Ot C50.919 MALIGNANT NEOPLASM OF UNSP SITE OF UNSPE 11/04/2015 DIANDRA MONTES N Ot C50.919 MALIGNANT NEOPLASM OF UNSP SITE OF UNSPE 11/20/2015 ADELINA BLUE, SIMONE Collins Ot R06.00 DYSPNEA, UNSPECIFIED 11/20/2015 ADELINA BLUE, SIMONE Collins Ot R22.42 LOCALIZED SWELLING, MASS AND LUMP, LEFT 11/25/2015 ADELINA BLUE, SIMONE Collins Ot R06.00 DYSPNEA, UNSPECIFIED 11/25/2015 ADELINA BLUE, SIMONE Collins Ot R22.42 LOCALIZED SWELLING, MASS AND LUMP, LEFT 11/30/2015 SIMONE SAHU MD Ot I87.2 VENOUS INSUFFICIENCY (CHRONIC) (PERIPHER 12/04/2015 GRUPO JAIN SHEET ROLLER OPERATOR Ot 625.8 FEM GENITAL SYMPTOMS NEC 12/04/2015 GRUPO JAIN SHEET ROLLER OPERATOR Ot 793.99 OTH NOSP (ABN) FINDINGS RADIOLOGICAL O 12/24/2015 SIMONE SAHU MD Ot I87.2 VENOUS INSUFFICIENCY (CHRONIC) (PERIPHER 12/31/2015 SIMONE SAHU MD Ot I87.2 VENOUS INSUFFICIENCY (CHRONIC) (PERIPHER 12/31/2015 SIMONE SAHU MD Ot I87.2 VENOUS INSUFFICIENCY (CHRONIC) (PERIPHER 04/12/2016 DIANDRA MONTES Ot C50.919 MALIGNANT NEOPLASM OF UNSP SITE OF UNSPE 05/03/2016 DIANDRA MONTES Ot C50.919 MALIGNANT NEOPLASM OF UNSP SITE OF UNSPE 05/04/2016 DIANDRA MONTES Ot C50.919 MALIGNANT NEOPLASM OF UNSP SITE OF UNSPE 10/26/2016 Ot V10.3 HX OF BREAST MALIGNANCY 10/26/2016 Ot V76.11 SCRN MAMMO- HIGH RISK PT, MALIGNANT NEOPL 10/26/2016 Ot 793.89 OTH (ABN) FINDINGS ON RADIOLOGICAL EXAMI 10/26/2016 Ot V10.3 HX OF BREAST MALIGNANCY 10/26/2016 Ot V76.11 SCRN MAMMO- HIGH RISK PT, MALIGNANT NEOPL 10/26/2016 Ot 611.72 LUMP OR MASS IN BREAST 10/26/2016 SIMONE SAHU MD Ot 272.4 HYPERLIPIDEMIA NEC/NOS 10/26/2016 SIMONE SAHU MD Ot 611.72 LUMP OR MASS IN BREAST 10/26/2016 RIA VARGAS MD Ot 174.9 MALIGN NEOPL BREAST NOS 10/26/2016 RIA VARGAS MD Ot V72.63 PRE-PROCEDURAL LABORATORY EXAMINATION 10/26/2016 RIA VARGAS MD Ot V72.81 [id number] CARDIOVASCULAR 10/26/2016 RIA VARGAS MD Ot V72.83 EXAM PRE-OPERATIVE NEC 10/26/2016 RIA VARGAS MD Ot V74.8 SCREEN-BACTERIAL DIS NEC 10/26/2016 DIANDRA MONTES Ot 174.9 MALIGN NEOPL BREAST NOS 10/26/2016 DIANDRA MONTES Ot 174.9 MALIGN NEOPL BREAST NOS 10/26/2016 GRUPO JAIN SHEET ROLLER OPERATOR Ot 174.9 MALIGN NEOPL BREAST NOS 10/26/2016 RGUPO JAIN SHEET ROLLER OPERATOR Ot 625.8 FEM GENITAL SYMPTOMS NEC 10/26/2016 GRUPO JAIN SHEET ROLLER OPERATOR Ot 793.99 OTH NOSP (ABN) FINDINGS RADIOLOGICAL O 10/26/2016 EMMANUEL MURPHY DOA C Ot 625.8 FEM GENITAL SYMPTOMS NEC 10/26/2016 EMMANUEL MURPHY DOA C Ot 793.5 NOSP (ABN) FINDINGS ON RADIOLOGICAL OT 10/26/2016 JEFFREY TELLES YAIDEL C Ot 174.9 MALIGN NEOPL BREAST NOS 10/26/2016 EMMANUEL MURPHY DOA C Ot 620.2 OVARIAN CYST NEC/NOS 10/26/2016 EMMANUEL MURPHY DOA C Ot V72.63 PRE-PROCEDURAL LABORATORY EXAMINATION 10/26/2016 YADIEL MURPHY DO C Ot V74.8 SCREEN-BACTERIAL DIS NEC 10/26/2016 GRUPO JAIN SHEET ROLLER OPERATOR Ot 174.9 MALIGN NEOPL BREAST NOS 10/26/2016 GRUPO JAIN SHEET ROLLER OPERATOR Ot 780.79 OTH MALAISE FATIGUE 10/26/2016 ADELINA BLUE, SIMONE Collins Ot 574.20 CHOLELITHIASIS NOS 10/26/2016 SIMONE SAHU MD Ot 575.6 GB CHOLESTEROLOSIS 10/26/2016 YADIEL MURPHY DO Ot 574.20 CHOLELITHIASIS NOS 10/26/2016 YADIEL MURPHY DO Ot 618.01 CYSTOCELE, MIDLINE 10/26/2016 YADIEL MURPHY DO C Ot V72.63 PRE-PROCEDURAL LABORATORY EXAMINATION 10/26/2016 YADIEL MURPHY DO C Ot V74.8 SCREEN-BACTERIAL DIS NEC 10/26/2016 GRUPO JAIN SHEET ROLLER OPERATOR Ot 174.9 MALIGN NEOPL BREAST NOS 10/26/2016 GRUPO JAIN SHEET ROLLER OPERATOR Ot 174.9 MALIGN NEOPL BREAST NOS 10/26/2016 DIANDRA MONTES Ot 174.9 MALIGN NEOPL BREAST NOS 10/26/2016 DIANDRA MONTES Ot 995.20 UNSP ADVERSE EFFECT OF UNSP DRUG, MEDICI 10/26/2016 GRUPO JAIN SHEET ROLLER OPERATOR Ot C50.919 MALIGNANT NEOPLASM OF UNSP SITE OF UNSPE 10/26/2016 DIANDRA MONTES N Ot C50.919 MALIGNANT NEOPLASM OF UNSP SITE OF UNSPE 10/26/2016 SIMONE SAHU MD Ot E78.0 PURE HYPERCHOLESTEROLEMIA 10/26/2016 ADELINA BLUE, SIMONE Collins Ot R06.00 DYSPNEA, UNSPECIFIED 10/26/2016 ADELINA BLUE, SIMONE Collins Ot R22.42 LOCALIZED SWELLING, MASS AND LUMP, LEFT 10/26/2016 DIANDRA MONTES N Ot C50.919 MALIGNANT NEOPLASM OF UNSP SITE OF UNSPE 11/16/2016 DIANDRA MONTES N Ot C50.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 11/16/2016 SIMONDIANDRA ROMERO N Ot E78.00 PURE HYPERCHOLESTEROLEMIA, UNSPECIFIED 11/16/2016 SIMONDIANDRA N Ot I10 ESSENTIAL (PRIMARY) HYPERTENSION 11/16/2016 SIMONDIANDRA N Ot R73.9 HYPERGLYCEMIA, UNSPECIFIED 11/16/2016 SIMONDIANDRA N Ot Z17.0 ESTROGEN RECEPTOR POSITIVE STATUS [ER+] 11/16/2016 SIMONDIANDRA N Ot Z79.811 PILLING MACHINE OPERATOR (CURRENT) USE OF AROMATASE INH 11/16/2016 SIMONDIANDRA ROMERO N Ot Z90.11 ACQUIRED ABSENCE OF RIGHT BREAST AND NIP 11/24/2016 SIMONDIANDRA ROMERO N Ot C50.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 11/24/2016 SIMONDIANDRA N Ot E78.00 PURE HYPERCHOLESTEROLEMIA, UNSPECIFIED 11/24/2016 SIMONDIANDRA N Ot I10 ESSENTIAL (PRIMARY) HYPERTENSION 11/24/2016 SIMONDIANDRA N Ot R73.9 HYPERGLYCEMIA, UNSPECIFIED 11/24/2016 SIMONDIANDRA N Ot Z17.0 ESTROGEN RECEPTOR POSITIVE STATUS [ER+] 11/24/2016 SIMONDIANDRA N Ot Z79.811 PILLING MACHINE OPERATOR (CURRENT) USE OF AROMATASE INH 11/24/2016 SIMONDIANDRA N Ot Z90.11 ACQUIRED ABSENCE OF RIGHT BREAST AND NIP 04/14/2017 SIMONDIANDRA ROMERO N Ot C50.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 04/14/2017 SIMONDIANDRA N Ot E78.00 PURE HYPERCHOLESTEROLEMIA, UNSPECIFIED 04/14/2017 DIANDRA MONTES Ot I10 ESSENTIAL (PRIMARY) HYPERTENSION 04/14/2017 DIANDRA MONTES Ot R73.9 HYPERGLYCEMIA, UNSPECIFIED 04/14/2017 DIANDRA MONTES Ot Z17.0 ESTROGEN RECEPTOR POSITIVE STATUS [ER+] 04/14/2017 DIANDRA MONTES Ot Z79.811 PENITENTIARY (CURRENT) USE OF AROMATASE INH 04/14/2017 DIANDRA MONTES Ot Z90.11 ACQUIRED ABSENCE OF RIGHT BREAST AND NIP 05/09/2017 Ot 793.89 OTH (ABN) FINDINGS ON RADIOLOGICAL EXAMI 05/09/2017 Ot V10.3 HX OF BREAST MALIGNANCY 05/09/2017 Ot V76.11 SCRN MAMMO- HIGH RISK PT, MALIGNANT NEOPL 05/09/2017 Ot 611.72 LUMP OR MASS IN BREAST 05/09/2017 SIMONE SAHU MD Ot 272.4 HYPERLIPIDEMIA NEC/NOS 05/09/2017 SIMONE SAHU MD Ot 611.72 LUMP OR MASS IN BREAST 05/09/2017 RIA VARGAS MD Ot 174.9 MALIGN NEOPL BREAST NOS 05/09/2017 RIA VARGAS MD Ot V72.63 PRE-PROCEDURAL LABORATORY EXAMINATION 05/09/2017 RIA VARGAS MD Ot V72.81 [id number] CARDIOVASCULAR 05/09/2017 RIA VARGAS MD Ot V72.83 EXAM PRE-OPERATIVE NEC 05/09/2017 RIA VARGAS MD Ot V74.8 SCREEN-BACTERIAL DIS NEC 05/09/2017 DIANDRA MONTES Scott Ot 174.9 MALIGN NEOPL BREAST NOS 05/09/2017 DIANDRA MONTES Scott Ot 174.9 MALIGN NEOPL BREAST NOS 05/09/2017 GRUPO JAIN SHEET ROLLER OPERATOR Ot 174.9 MALIGN NEOPL BREAST NOS 05/09/2017 GRUPO JAIN SHEET ROLLER OPERATOR Ot 625.8 FEM GENITAL SYMPTOMS NEC 05/09/2017 GRUPO JAIN SHEET ROLLER OPERATOR Ot 793.99 OTH NOSP (ABN) FINDINGS RADIOLOGICAL O 05/09/2017 MURPHY DO YADIEL C Ot 625.8 FEM GENITAL SYMPTOMS NEC 05/09/2017 MURPHY DO YADIEL C Ot 793.5 NOSP (ABN) FINDINGS ON RADIOLOGICAL OT 05/09/2017 MURPHY DO, YADIEL C Ot 174.9 MALIGN NEOPL BREAST NOS 05/09/2017 MURPHY DO, YADIEL C Ot 620.2 OVARIAN CYST NEC/NOS 05/09/2017 MURPHY DO, YADIEL C Ot V72.63 PRE-PROCEDURAL LABORATORY EXAMINATION 05/09/2017 MURPHYEmiliano TELLES YADIEL C Ot V74.8 SCREEN-BACTERIAL DIS NEC 05/09/2017 JAINGRUPO Seymour S SHEET ROLLER OPERATOR Ot 174.9 MALIGN NEOPL BREAST NOS 05/09/2017 GRUPO JAIN S SHEET ROLLER OPERATOR Ot 780.79 OTH MALAISE FATIGUE 05/09/2017 ADELINA BLUE, SIMONE Collins Ot 574.20 CHOLELITHIASIS NOS 05/09/2017 SIMONE SAHU MD Ot 575.6 GB CHOLESTEROLOSIS 05/09/2017 MURPHY DO, YADIEL C Ot 574.20 CHOLELITHIASIS NOS 05/09/2017 MURPHY DO, YADIEL C Ot 618.01 CYSTOCELE, MIDLINE 05/09/2017 MURPHY DO YADIEL C Ot V72.63 PRE-PROCEDURAL LABORATORY EXAMINATION 05/09/2017 JEFFREY TELLES YADIEL C Ot V74.8 SCREEN-BACTERIAL DIS NEC 05/09/2017 GRUPO JAIN S SHEET ROLLER OPERATOR Ot 174.9 MALIGN NEOPL BREAST NOS 05/09/2017 GRUPO JAIN S SHEET ROLLER OPERATOR Ot 174.9 MALIGN NEOPL BREAST NOS 05/09/2017 DIANDRA MONTES Ot 174.9 MALIGN NEOPL BREAST NOS 05/09/2017 DIANDRA MONTES Ot 995.20 UNSP ADVERSE EFFECT OF UNSP DRUG, MEDICI 05/09/2017 GRUPO JAIN SHEET ROLLER OPERATOR Ot C50.919 MALIGNANT NEOPLASM OF UNSP SITE OF UNSPE 05/09/2017 DIANDRA MONTES Ot C50.919 MALIGNANT NEOPLASM OF UNSP SITE OF UNSPE 05/09/2017 ADELINA BLUE, SIMONE Collins Ot E78.0 PURE HYPERCHOLESTEROLEMIA 05/09/2017 ADELINA BLUE, SIMONE Collins Ot R06.00 DYSPNEA, UNSPECIFIED 05/09/2017 ADELINA BLUE, SIMONE Collins Ot R22.42 LOCALIZED SWELLING, MASS AND LUMP, LEFT 05/09/2017 DIANDRA MONTES Ot C50.919 MALIGNANT NEOPLASM OF UNSP SITE OF UNSPE 05/09/2017 DIANDRA MONTES Ot C50.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 05/09/2017 DIANDRA MONTES N Ot E78.00 PURE HYPERCHOLESTEROLEMIA, UNSPECIFIED 05/09/2017 SIMONDIANDRA N Ot I10 ESSENTIAL (PRIMARY) HYPERTENSION 05/09/2017 SIMONDIANDRA ROMERO N Ot R73.9 HYPERGLYCEMIA, UNSPECIFIED 05/09/2017 SIMONDIANDRA ROMERO N Ot Z17.0 ESTROGEN RECEPTOR POSITIVE STATUS [ER+] 05/09/2017 DIANDRA MONTES N Ot Z79.811 PILLING MACHINE OPERATOR (CURRENT) USE OF AROMATASE INH 05/09/2017 DIANDRA MONTES N Ot Z90.11 ACQUIRED ABSENCE OF RIGHT BREAST AND NIP 05/09/2017 DIANDRA MONTES N Ot C50.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 05/09/2017 DIANDRA MONTES N Ot E78.00 PURE HYPERCHOLESTEROLEMIA, UNSPECIFIED 05/09/2017 SIMONDIANDRA N Ot I10 ESSENTIAL (PRIMARY) HYPERTENSION 05/09/2017 SIMONDIANDRA ROMERO N Ot R73.9 HYPERGLYCEMIA, UNSPECIFIED 05/09/2017 SIMONDIANDRA N Ot Z17.0 ESTROGEN RECEPTOR POSITIVE STATUS [ER+] 05/09/2017 SIMONDIANDRA N Ot Z79.811 PENITENTIARY (CURRENT) USE OF AROMATASE INH 05/09/2017 DIANDRA MONTES N Ot Z90.11 ACQUIRED ABSENCE OF RIGHT BREAST AND NIP 05/09/2017 DIANDRA MONTES N Ot R29.890 LOSS OF HEIGHT 05/09/2017 DIANDRA MONTES N Ot R29.890 LOSS OF HEIGHT 05/30/2017 DIANDRA MONTES N Ot C50.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 05/30/2017 DIANDRA MONTES N Ot E78.00 PURE HYPERCHOLESTEROLEMIA, UNSPECIFIED 05/30/2017 SIMONDIANDRA N Ot I10 ESSENTIAL (PRIMARY) HYPERTENSION 05/30/2017 SIMONDIANDRA N Ot R73.9 HYPERGLYCEMIA, UNSPECIFIED 05/30/2017 SIMONDIANDRA N Ot Z17.0 ESTROGEN RECEPTOR POSITIVE STATUS [ER+] 05/30/2017 SIMONDIANDRA ROMERO N Ot Z79.811 PENITENTIARY (CURRENT) USE OF AROMATASE INH 05/30/2017 DIANDRA MONTES N Ot Z90.11 ACQUIRED ABSENCE OF RIGHT BREAST AND NIP 05/31/2017 DIANDRA MONTES N Ot M47.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 05/31/2017 DIANDRA MONTES N Ot R29.890 LOSS OF HEIGHT 06/09/2017 DIANDRA MONTES Scott Ot C50.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 06/09/2017 DIANDRA MONTES N Ot E78.00 PURE HYPERCHOLESTEROLEMIA, UNSPECIFIED 06/09/2017 DIANDRA MONTES N Ot I10 ESSENTIAL (PRIMARY) HYPERTENSION 06/09/2017 DIANDRA MONTES N Ot R73.9 HYPERGLYCEMIA, UNSPECIFIED 06/09/2017 DIANDRA MONTES N Ot Z17.0 ESTROGEN RECEPTOR POSITIVE STATUS [ER+] 06/09/2017 DIANDRA MONTES N Ot Z79.811 PENITENTIARY (CURRENT) USE OF AROMATASE INH 06/09/2017 DIANDRA MONTES Scott Ot Z90.11 ACQUIRED ABSENCE OF RIGHT BREAST AND NIP 06/09/2017 DIANDRA MONTES Scott Ot M47.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 06/09/2017 DIANDRA MONTES N Ot R29.890 LOSS OF HEIGHT 06/22/2017 DIANDRA MONTES Scott Ot M54.9 DORSALGIA, UNSPECIFIED 06/22/2017 DIANDRA MONTES Scott Ot M85.88 OTH DISRD OF BONE DENSITY AND STRUCTURE, 06/22/2017 DIANDRA MONTES N Ot R29.890 LOSS OF HEIGHT 06/22/2017 DIANDRA MONTES Scott Ot Z51.81 ENCOUNTER FOR THERAPEUTIC DRUG LEVEL MON 06/22/2017 DIANDRA MONTES Scott Ot Z78.0 ASYMPTOMATIC MENOPAUSAL STATE 07/12/2017 DIANDRA MONTES Scott Ot C50.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 07/12/2017 DIANDRA MONTES N Ot E78.00 PURE HYPERCHOLESTEROLEMIA, UNSPECIFIED 07/12/2017 DIANDRA MONTES N Ot I10 ESSENTIAL (PRIMARY) HYPERTENSION 07/12/2017 DIANDRA MONTES N Ot R73.9 HYPERGLYCEMIA, UNSPECIFIED 07/12/2017 DIANDRA MONTES N Ot Z17.0 ESTROGEN RECEPTOR POSITIVE STATUS [ER+] 07/12/2017 KENDY MONTESBENJAMIN N Ot Z79.811 PILLING MACHINE OPERATOR (CURRENT) USE OF AROMATASE INH 07/12/2017 DIANDRA MONTES Ot Z90.11 ACQUIRED ABSENCE OF RIGHT BREAST AND NIP 07/13/2017 DIANDRA MONTES Ot C50.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 07/13/2017 DIANDRA MONTES Ot E78.00 PURE HYPERCHOLESTEROLEMIA, UNSPECIFIED 07/13/2017 DIANDRA MONTES Ot I10 ESSENTIAL (PRIMARY) HYPERTENSION 07/13/2017 DIANDRA MONTES Ot R73.9 HYPERGLYCEMIA, UNSPECIFIED 07/13/2017 DIANDRA MONTES Ot Z17.0 ESTROGEN RECEPTOR POSITIVE STATUS [ER+] 07/13/2017 DIANDRA MONTES Ot Z79.811 PENITENTIARY (CURRENT) USE OF AROMATASE INH 07/13/2017 DIANDRA MONTES Ot Z90.11 ACQUIRED ABSENCE OF RIGHT BREAST AND NIP 09/13/2017 Ot 793.89 OTH (ABN) FINDINGS ON RADIOLOGICAL EXAMI 09/13/2017 Ot V10.3 HX OF BREAST MALIGNANCY 09/13/2017 Ot V76.11 SCRN MAMMO- HIGH RISK PT, MALIGNANT NEOPL 09/13/2017 Ot 611.72 LUMP OR MASS IN BREAST 09/13/2017 SIMONE SAHU MD Ot 272.4 HYPERLIPIDEMIA NEC/NOS 09/13/2017 SIMONE SAHU MD Ot 611.72 LUMP OR MASS IN BREAST 09/13/2017 RIA VARGAS MD Ot 174.9 MALIGN NEOPL BREAST NOS 09/13/2017 RIA VARGAS MD Ot V72.63 PRE-PROCEDURAL LABORATORY EXAMINATION 09/13/2017 RIA VARGAS MD Ot V72.81 [id number] CARDIOVASCULAR 09/13/2017 RIA VARGAS MD Ot V72.83 EXAM PRE-OPERATIVE NEC 09/13/2017 RIA VARGAS MD Ot V74.8 SCREEN-BACTERIAL DIS NEC 09/13/2017 DIANDRA MONTES Scott Ot 174.9 MALIGN NEOPL BREAST NOS 09/13/2017 DIANDRA MONTES N Ot 174.9 MALIGN NEOPL BREAST NOS 09/13/2017 GRUPO JAIN SHEET ROLLER OPERATOR Ot 174.9 MALIGN NEOPL BREAST NOS 09/13/2017 GRUPO JAIN SHEET ROLLER OPERATOR Ot 625.8 FEM GENITAL SYMPTOMS NEC 09/13/2017 GRUPO JAIN SHEET ROLLER OPERATOR Ot 793.99 OTH NOSP (ABN) FINDINGS RADIOLOGICAL O 09/13/2017 JEFFREY TELLES YADIEL C Ot 625.8 FEM GENITAL SYMPTOMS NEC 09/13/2017 JEFFREY TELLES YADIEL C Ot 793.5 NOSP (ABN) FINDINGS ON RADIOLOGICAL OT 09/13/2017 JEFFREY TELLES YADIEL C Ot 174.9 MALIGN NEOPL BREAST NOS 09/13/2017 MURPHY DO YADIEL C Ot 620.2 OVARIAN CYST NEC/NOS 09/13/2017 MURPHY DO YADIEL C Ot V72.63 PRE-PROCEDURAL LABORATORY EXAMINATION 09/13/2017 JEFFREY TELLES YADIEL C Ot V74.8 SCREEN-BACTERIAL DIS NEC 09/13/2017 GRUPO JAIN S SHEET ROLLER OPERATOR Ot 174.9 MALIGN NEOPL BREAST NOS 09/13/2017 GRUPO JAIN S SHEET ROLLER OPERATOR Ot 780.79 OTH MALAISE FATIGUE 09/13/2017 SIMONE SAHU MD Ot 574.20 CHOLELITHIASIS NOS 09/13/2017 SIMONE SAHU MD Ot 575.6 GB CHOLESTEROLOSIS 09/13/2017 JEFFREY TELLES YADIEL C Ot 574.20 CHOLELITHIASIS NOS 09/13/2017 JEFFREY TELLES, YADIEL C Ot 618.01 CYSTOCELE, MIDLINE 09/13/2017 EMMANUEL MURPHY DOA C Ot V72.63 PRE-PROCEDURAL LABORATORY EXAMINATION 09/13/2017 JEFFREY TELLES YADIEL C Ot V74.8 SCREEN-BACTERIAL DIS NEC 09/13/2017 GRUPO JAIN SHEET ROLLER OPERATOR Ot 174.9 MALIGN NEOPL BREAST NOS 09/13/2017 GRUPO JAIN SHEET ROLLER OPERATOR Ot 174.9 MALIGN NEOPL BREAST NOS 09/13/2017 DIANDRA MONTES Ot 174.9 MALIGN NEOPL BREAST NOS 09/13/2017 DIANDRA MONTES Ot 995.20 UNSP ADVERSE EFFECT OF UNSP DRUG, MEDICI 09/13/2017 GRUPO JAIN S SHEET ROLLER OPERATOR Ot C50.919 MALIGNANT NEOPLASM OF UNSP SITE OF UNSPE 09/13/2017 DIANDRA MONTES Ot C50.919 MALIGNANT NEOPLASM OF UNSP SITE OF UNSPE 09/13/2017 ADELINA BLUE, SIMONE Collins Ot E78.0 PURE HYPERCHOLESTEROLEMIA 09/13/2017 SIMONE SAHU MD Ot R06.00 DYSPNEA, UNSPECIFIED 09/13/2017 ADELINA BLUE, SIMONE Collins Ot R22.42 LOCALIZED SWELLING, MASS AND LUMP, LEFT 09/13/2017 SIMONKENDYBENJAMIN Scott Ot C50.919 MALIGNANT NEOPLASM OF UNSP SITE OF UNSPE 09/13/2017 SIMONDIANDRA Ot C50.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 09/13/2017 SIMON, KENDYBENJAMIN N Ot E78.00 PURE HYPERCHOLESTEROLEMIA, UNSPECIFIED 09/13/2017 SIMONDIANDRA N Ot I10 ESSENTIAL (PRIMARY) HYPERTENSION 09/13/2017 SIMONDIANDRA N Ot R73.9 HYPERGLYCEMIA, UNSPECIFIED 09/13/2017 SIMONDIANDRA N Ot Z17.0 ESTROGEN RECEPTOR POSITIVE STATUS [ER+] 09/13/2017 DIANDRA MONTES N Ot Z79.811 PENITENTIARY (CURRENT) USE OF AROMATASE INH 09/13/2017 SIMONDIANDRA N Ot Z90.11 ACQUIRED ABSENCE OF RIGHT BREAST AND NIP 09/13/2017 DIANDRA MONTES N Ot M47.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 09/13/2017 SIMONDIANDRA N Ot R29.890 LOSS OF HEIGHT 09/13/2017 DIANDRA MONTES N Ot M54.9 DORSALGIA, UNSPECIFIED 09/13/2017 DIANDRA MONTES N Ot M85.88 OTH DISRD OF BONE DENSITY AND STRUCTURE, 09/13/2017 SIMON DIANDRA N Ot R29.890 LOSS OF HEIGHT 09/13/2017 SIMONKENDYBENJAMIN Scott Ot Z51.81 ENCOUNTER FOR THERAPEUTIC DRUG LEVEL MON 09/13/2017 SIMONKENDYBENJAMIN N Ot Z78.0 ASYMPTOMATIC MENOPAUSAL STATE 09/13/2017 DIANDRA MONTES N Ot C50.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 09/13/2017 SIMON, DIANDRA N Ot E78.00 PURE HYPERCHOLESTEROLEMIA, UNSPECIFIED 09/13/2017 SIMONDIANDRA N Ot I10 ESSENTIAL (PRIMARY) HYPERTENSION 09/13/2017 SIMONDIANDRA N Ot R73.9 HYPERGLYCEMIA, UNSPECIFIED 09/13/2017 DIANDRA MONTES N Ot Z17.0 ESTROGEN RECEPTOR POSITIVE STATUS [ER+] 09/13/2017 DIANDRA MONTES N Ot Z79.811 PILLING MACHINE OPERATOR (CURRENT) USE OF AROMATASE INH 09/13/2017 DIANDRA MONTES Ot Z90.11 ACQUIRED ABSENCE OF RIGHT BREAST AND NIP 09/13/2017 SIMONE SAHU MD Ot R60.0 LOCALIZED EDEMA 09/13/2017 Ot 793.89 OTH (ABN) FINDINGS ON RADIOLOGICAL EXAMI 09/13/2017 Ot V10.3 HX OF BREAST MALIGNANCY 09/13/2017 Ot V76.11 SCRN MAMMO- HIGH RISK PT, MALIGNANT NEOPL 09/13/2017 Ot 611.72 LUMP OR MASS IN BREAST 09/13/2017 SIMONE SAHU MD Ot 272.4 HYPERLIPIDEMIA NEC/NOS 09/13/2017 SIMONE SAHU MD Ot 611.72 LUMP OR MASS IN BREAST 09/13/2017 RIA VARGAS MD Ot 174.9 MALIGN NEOPL BREAST NOS 09/13/2017 RIA VARGAS MD Ot V72.63 PRE-PROCEDURAL LABORATORY EXAMINATION 09/13/2017 RIA VARGAS MD Ot V72.81 [id number] CARDIOVASCULAR 09/13/2017 RIA VARGAS MD Ot V72.83 EXAM PRE-OPERATIVE NEC 09/13/2017 RIA VARGAS MD Ot V74.8 SCREEN-BACTERIAL DIS NEC 09/13/2017 DIANDRA MONTES Scott Ot 174.9 MALIGN NEOPL BREAST NOS 09/13/2017 DIANDRA MONTES Scott Ot 174.9 MALIGN NEOPL BREAST NOS 09/13/2017 GRUPO JAIN SHEET ROLLER OPERATOR Ot 174.9 MALIGN NEOPL BREAST NOS 09/13/2017 GRUPO JAIN SHEET ROLLER OPERATOR Ot 625.8 FEM GENITAL SYMPTOMS NEC 09/13/2017 GRUPO JAIN SHEET ROLLER OPERATOR Ot 793.99 OTH NOSP (ABN) FINDINGS RADIOLOGICAL O 09/13/2017 MURPHY DO, YADIEL C Ot 625.8 FEM GENITAL SYMPTOMS NEC 09/13/2017 MURPHY DO, YADIEL C Ot 793.5 NOSP (ABN) FINDINGS ON RADIOLOGICAL OT 09/13/2017 MURPHY DO, YADIEL C Ot 174.9 MALIGN NEOPL BREAST NOS 09/13/2017 MURPHY DO, YADIEL C Ot 620.2 OVARIAN CYST NEC/NOS 09/13/2017 MURPHY DO YADIEL C Ot V72.63 PRE-PROCEDURAL LABORATORY EXAMINATION 09/13/2017 MURPHY DO, YADIEL C Ot V74.8 SCREEN-BACTERIAL DIS NEC 09/13/2017 GRUPO JAIN S SHEET ROLLER OPERATOR Ot 174.9 MALIGN NEOPL BREAST NOS 09/13/2017 GRUPO JAIN S SHEET ROLLER OPERATOR Ot 780.79 OTH MALAISE FATIGUE 09/13/2017 ADELINA BLUE, SIMONE Collins Ot 574.20 CHOLELITHIASIS NOS 09/13/2017 ADELINA BLUE, SIMONE Collins Ot 575.6 GB CHOLESTEROLOSIS 09/13/2017 MURPHY DO, YADIEL C Ot 574.20 CHOLELITHIASIS NOS 09/13/2017 MURPHY DO, YADIEL C Ot 618.01 CYSTOCELE, MIDLINE 09/13/2017 MURPHY DO, YADIEL C Ot V72.63 PRE-PROCEDURAL LABORATORY EXAMINATION 09/13/2017 MURPHY DO, YADIEL C Ot V74.8 SCREEN-BACTERIAL DIS NEC 09/13/2017 GRUPO JAIN S SHEET ROLLER OPERATOR Ot 174.9 MALIGN NEOPL BREAST NOS 09/13/2017 GRUPO JAIN S SHEET ROLLER OPERATOR Ot 174.9 MALIGN NEOPL BREAST NOS 09/13/2017 DIANDRA MONTES N Ot 174.9 MALIGN NEOPL BREAST NOS 09/13/2017 DIANDRA MONTES Ot 995.20 UNSP ADVERSE EFFECT OF UNSP DRUG, MEDICI 09/13/2017 GRUPO JAIN SHEET ROLLER OPERATOR Ot C50.919 MALIGNANT NEOPLASM OF UNSP SITE OF UNSPE 09/13/2017 DIANDRA MONTES Ot C50.919 MALIGNANT NEOPLASM OF UNSP SITE OF UNSPE 09/13/2017 SIMONE SAHU MD Ot E78.0 PURE HYPERCHOLESTEROLEMIA 09/13/2017 SIMONE SAHU MD Ot R06.00 DYSPNEA, UNSPECIFIED 09/13/2017 SIMONE SAHU MD Ot R22.42 LOCALIZED SWELLING, MASS AND LUMP, LEFT 09/13/2017 DIANDRA MONTES Ot C50.919 MALIGNANT NEOPLASM OF UNSP SITE OF UNSPE 09/13/2017 DIANDRA MONTES Ot C50.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 09/13/2017 DIANDRA MONTES Ot E78.00 PURE HYPERCHOLESTEROLEMIA, UNSPECIFIED 09/13/2017 DIANDRA MONTES Ot I10 ESSENTIAL (PRIMARY) HYPERTENSION 09/13/2017 DIANDRA MONTES Ot R73.9 HYPERGLYCEMIA, UNSPECIFIED 09/13/2017 DIANDRA MONTES Ot Z17.0 ESTROGEN RECEPTOR POSITIVE STATUS [ER+] 09/13/2017 DIANDRA MONTES Ot Z79.811 PILLING MACHINE OPERATOR (CURRENT) USE OF AROMATASE INH 09/13/2017 DIANDRA MONTES Ot Z90.11 ACQUIRED ABSENCE OF RIGHT BREAST AND NIP 09/13/2017 DIANDRA MONTES Ot M47.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 09/13/2017 DIANDRA MONTES N Ot R29.890 LOSS OF HEIGHT 09/13/2017 DIANDRA MONTES Ot M54.9 DORSALGIA, UNSPECIFIED 09/13/2017 DIANDRA MONTES Ot M85.88 OTH DISRD OF BONE DENSITY AND STRUCTURE, 09/13/2017 DIANDRA MONTES Ot R29.890 LOSS OF HEIGHT 09/13/2017 DIANDRA MONTES Ot Z51.81 ENCOUNTER FOR THERAPEUTIC DRUG LEVEL MON 09/13/2017 DIANDRA MONTES Ot Z78.0 ASYMPTOMATIC MENOPAUSAL STATE 09/13/2017 DIANDRA MONTES Ot C50.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 09/13/2017 DIANDRA MONTES Ot E78.00 PURE HYPERCHOLESTEROLEMIA, UNSPECIFIED 09/13/2017 DIANDRA MONTES Ot I10 ESSENTIAL (PRIMARY) HYPERTENSION 09/13/2017 DIANDRA MONTES Ot R73.9 HYPERGLYCEMIA, UNSPECIFIED 09/13/2017 DIANDRA MONTSE Ot Z17.0 ESTROGEN RECEPTOR POSITIVE STATUS [ER+] 09/13/2017 DIANDRA MONTES Ot Z79.811 PILLING MACHINE OPERATOR (CURRENT) USE OF AROMATASE INH 09/13/2017 DIANDRA MONTES Ot Z90.11 ACQUIRED ABSENCE OF RIGHT BREAST AND NIP 09/13/2017 SIMONE SAHU MD Ot R60.0 LOCALIZED EDEMA 09/13/2017 SIMONE SAHU MD Ot R60.0 LOCALIZED EDEMA 09/13/2017 Ot 793.89 OTH (ABN) FINDINGS ON RADIOLOGICAL EXAMI 09/13/2017 Ot V10.3 HX OF BREAST MALIGNANCY 09/13/2017 Ot V76.11 SCRN MAMMO- HIGH RISK PT, MALIGNANT NEOPL 09/13/2017 Ot 611.72 LUMP OR MASS IN BREAST 09/13/2017 ADELINA BLUE, SIMONE Collins Ot 272.4 HYPERLIPIDEMIA NEC/NOS 09/13/2017 ADELINA BLUE, SIMONE Collins Ot 611.72 LUMP OR MASS IN BREAST 09/13/2017 SAM BLUE, RIA Ot 174.9 MALIGN NEOPL BREAST NOS 09/13/2017 RIA VARGAS MD Ot V72.63 PRE-PROCEDURAL LABORATORY EXAMINATION 09/13/2017 RIA VARGAS MD Ot V72.81 [id number] CARDIOVASCULAR 09/13/2017 RIA VARGAS MD Ot V72.83 EXAM PRE-OPERATIVE NEC 09/13/2017 RIA VARGAS MD Ot V74.8 SCREEN-BACTERIAL DIS NEC 09/13/2017 DIANDRA MONTES N Ot 174.9 MALIGN NEOPL BREAST NOS 09/13/2017 DIANDRA MONTES N Ot 174.9 MALIGN NEOPL BREAST NOS 09/13/2017 JAIN HILAH S SHEET ROLLER OPERATOR Ot 174.9 MALIGN NEOPL BREAST NOS 09/13/2017 JAIN HILAH S SHEET ROLLER OPERATOR Ot 625.8 FEM GENITAL SYMPTOMS NEC 09/13/2017 JAIN, HILAH S SHEET ROLLER OPERATOR Ot 793.99 OTH NOSP (ABN) FINDINGS RADIOLOGICAL O 09/13/2017 MURPHY DO, YADIEL C Ot 625.8 FEM GENITAL SYMPTOMS NEC 09/13/2017 MURPHY DO, YADIEL C Ot 793.5 NOSP (ABN) FINDINGS ON RADIOLOGICAL OT 09/13/2017 MURPHY DO, YADIEL C Ot 174.9 MALIGN NEOPL BREAST NOS 09/13/2017 MURPHY DO, YADIEL C Ot 620.2 OVARIAN CYST NEC/NOS 09/13/2017 MURPHY DO, YADIEL C Ot V72.63 PRE-PROCEDURAL LABORATORY EXAMINATION 09/13/2017 MURPHY DO, YADIEL C Ot V74.8 SCREEN-BACTERIAL DIS NEC 09/13/2017 JAIN HILAH S SHEET ROLLER OPERATOR Ot 174.9 MALIGN NEOPL BREAST NOS 09/13/2017 JAIN, HILAH S SHEET ROLLER OPERATOR Ot 780.79 OTH MALAISE FATIGUE 09/13/2017 ADELINA BLUE, SIMONE Collins Ot 574.20 CHOLELITHIASIS NOS 09/13/2017 SIMONE SAHU MD Ot 575.6 GB CHOLESTEROLOSIS 09/13/2017 YADIEL MURPHY DO Ot 574.20 CHOLELITHIASIS NOS 09/13/2017 YADIEL MURPHY DO Ot 618.01 CYSTOCELE, MIDLINE 09/13/2017 YADIEL MURPHY DO Ot V72.63 PRE-PROCEDURAL LABORATORY EXAMINATION 09/13/2017 YADIEL MURPHY DO Ot V74.8 SCREEN-BACTERIAL DIS NEC 09/13/2017 GRUPO JAIN SHEET ROLLER OPERATOR Ot 174.9 MALIGN NEOPL BREAST NOS 09/13/2017 GRUPO JAIN SHEET ROLLER OPERATOR Ot 174.9 MALIGN NEOPL BREAST NOS 09/13/2017 DIANDRA MONTES Ot 174.9 MALIGN NEOPL BREAST NOS 09/13/2017 DIANDRA MONTES Ot 995.20 UNSP ADVERSE EFFECT OF UNSP DRUG, MEDICI 09/13/2017 GRUPO JAIN SHEET ROLLER OPERATOR Ot C50.919 MALIGNANT NEOPLASM OF UNSP SITE OF UNSPE 09/13/2017 DIANDRA MONTES Ot C50.919 MALIGNANT NEOPLASM OF UNSP SITE OF UNSPE 09/13/2017 ADELINA BLUE, SIMONE Collins Ot E78.0 PURE HYPERCHOLESTEROLEMIA 09/13/2017 ADELINA BLUE, SIMONE Collins Ot R06.00 DYSPNEA, UNSPECIFIED 09/13/2017 ADELINA BLUE, SIMONE Collins Ot R22.42 LOCALIZED SWELLING, MASS AND LUMP, LEFT 09/13/2017 DIANDRA MONTES Ot C50.919 MALIGNANT NEOPLASM OF UNSP SITE OF UNSPE 09/13/2017 DIANDRA MONTES Ot C50.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 09/13/2017 DIANDRA MONTES Ot E78.00 PURE HYPERCHOLESTEROLEMIA, UNSPECIFIED 09/13/2017 DIANDRA MONTES Ot I10 ESSENTIAL (PRIMARY) HYPERTENSION 09/13/2017 DIANDRA MONTES Ot R73.9 HYPERGLYCEMIA, UNSPECIFIED 09/13/2017 DIANDRA MONTES Ot Z17.0 ESTROGEN RECEPTOR POSITIVE STATUS [ER+] 09/13/2017 DIANDRA MONTES Ot Z79.811 PENITENTIARY (CURRENT) USE OF AROMATASE INH 09/13/2017 DIANDRA MONTES Ot Z90.11 ACQUIRED ABSENCE OF RIGHT BREAST AND NIP 09/13/2017 DIANDRA MONTES Ot M47.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 09/13/2017 DIANDRA MONTES Ot R29.890 LOSS OF HEIGHT 09/13/2017 DIANDRA MONTES Ot M54.9 DORSALGIA, UNSPECIFIED 09/13/2017 DIANDRA MONTES Ot M85.88 OTH DISRD OF BONE DENSITY AND STRUCTURE, 09/13/2017 DIANDRA MONTES Ot R29.890 LOSS OF HEIGHT 09/13/2017 DIANDRA MONTES Ot Z51.81 ENCOUNTER FOR THERAPEUTIC DRUG LEVEL MON 09/13/2017 DIANDRA MONTES Ot Z78.0 ASYMPTOMATIC MENOPAUSAL STATE 09/13/2017 DIANDRA MONTES Ot C50.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 09/13/2017 DIANDRA MONTES Ot E78.00 PURE HYPERCHOLESTEROLEMIA, UNSPECIFIED 09/13/2017 DIANDRA MONTES Ot I10 ESSENTIAL (PRIMARY) HYPERTENSION 09/13/2017 DIANDRA MONTES Ot R73.9 HYPERGLYCEMIA, UNSPECIFIED 09/13/2017 DIANDRA MONTES Ot Z17.0 ESTROGEN RECEPTOR POSITIVE STATUS [ER+] 09/13/2017 DIANDRA MONTES Ot Z79.811 PILLING MACHINE OPERATOR (CURRENT) USE OF AROMATASE INH 09/13/2017 DIANDRA MONTES Ot Z90.11 ACQUIRED ABSENCE OF RIGHT BREAST AND NIP 09/13/2017 ADELINA BLUE, SIMONE Collins Ot R60.0 LOCALIZED EDEMA 09/14/2017 Ot 793.89 OTH (ABN) FINDINGS ON RADIOLOGICAL EXAMI 09/14/2017 Ot V10.3 HX OF BREAST MALIGNANCY 09/14/2017 Ot V76.11 SCRN MAMMO- HIGH RISK PT, MALIGNANT NEOPL 09/14/2017 Ot 611.72 LUMP OR MASS IN BREAST 09/14/2017 SIMONE SAHU MD Ot 272.4 HYPERLIPIDEMIA NEC/NOS 09/14/2017 SIMONE SAHU MD Ot 611.72 LUMP OR MASS IN BREAST 09/14/2017 RIA VARGAS MD Ot 174.9 MALIGN NEOPL BREAST NOS 09/14/2017 RIA VARGAS MD Ot V72.63 PRE-PROCEDURAL LABORATORY EXAMINATION 09/14/2017 RIA VARGAS MD Ot V72.81 [id number] CARDIOVASCULAR 09/14/2017 RIA VARGAS MD Ot V72.83 EXAM PRE-OPERATIVE NEC 09/14/2017 SAM BLUE, RIA Ot V74.8 SCREEN-BACTERIAL DIS NEC 09/14/2017 DIANDRA MONTES N Ot 174.9 MALIGN NEOPL BREAST NOS 09/14/2017 DIANDRA MONTES N Ot 174.9 MALIGN NEOPL BREAST NOS 09/14/2017 JAIN HILAH S SHEET ROLLER OPERATOR Ot 174.9 MALIGN NEOPL BREAST NOS 09/14/2017 JAIN HILAH S SHEET ROLLER OPERATOR Ot 625.8 FEM GENITAL SYMPTOMS NEC 09/14/2017 JAIN, HILAH S SHEET ROLLER OPERATOR Ot 793.99 OTH NOSP (ABN) FINDINGS RADIOLOGICAL O 09/14/2017 MURPHY DO, YADIEL C Ot 625.8 FEM GENITAL SYMPTOMS NEC 09/14/2017 MURPHY DO, YADIEL C Ot 793.5 NOSP (ABN) FINDINGS ON RADIOLOGICAL OT 09/14/2017 MURPHY DO, YADIEL C Ot 174.9 MALIGN NEOPL BREAST NOS 09/14/2017 MURPHY DO, YADIEL C Ot 620.2 OVARIAN CYST NEC/NOS 09/14/2017 MURPHY DO, YADIEL C Ot V72.63 PRE-PROCEDURAL LABORATORY EXAMINATION 09/14/2017 MURPHY DO, YADIEL C Ot V74.8 SCREEN-BACTERIAL DIS NEC 09/14/2017 JAIN HILAH S SHEET ROLLER OPERATOR Ot 174.9 MALIGN NEOPL BREAST NOS 09/14/2017 JAIN HILAH S SHEET ROLLER OPERATOR Ot 780.79 OTH MALAISE FATIGUE 09/14/2017 SIMONE SAHU MD Ot 574.20 CHOLELITHIASIS NOS 09/14/2017 SIMONE SAHU MD Ot 575.6 GB CHOLESTEROLOSIS 09/14/2017 MURPHY DO, YADIEL C Ot 574.20 CHOLELITHIASIS NOS 09/14/2017 MURPHY DO, YADIEL C Ot 618.01 CYSTOCELE, MIDLINE 09/14/2017 MURPHY DO, YADIEL C Ot V72.63 PRE-PROCEDURAL LABORATORY EXAMINATION 09/14/2017 MURPHY DO, YADIEL C Ot V74.8 SCREEN-BACTERIAL DIS NEC 09/14/2017 JAIN HILAH S SHEET ROLLER OPERATOR Ot 174.9 MALIGN NEOPL BREAST NOS 09/14/2017 JAIN HILAH S SHEET ROLLER OPERATOR Ot 174.9 MALIGN NEOPL BREAST NOS 09/14/2017 DIANDRA MONTES Ot 174.9 MALIGN NEOPL BREAST NOS 09/14/2017 DIANDRA MONTES N Ot 995.20 UNSP ADVERSE EFFECT OF UNSP DRUG, MEDICI 09/14/2017 JAINGRUPO Seymour SHEET ROLLER OPERATOR Ot C50.919 MALIGNANT NEOPLASM OF UNSP SITE OF UNSPE 09/14/2017 DIANDRA MONTES Ot C50.919 MALIGNANT NEOPLASM OF UNSP SITE OF UNSPE 09/14/2017 ADELINA BLUE, SIMONE Collins Ot E78.0 PURE HYPERCHOLESTEROLEMIA 09/14/2017 ADELINA BLUE, SIMONE Collins Ot R06.00 DYSPNEA, UNSPECIFIED 09/14/2017 ADELINA BLUE, SIMONE Collins Ot R22.42 LOCALIZED SWELLING, MASS AND LUMP, LEFT 09/14/2017 DIANDRA MONTES Ot C50.919 MALIGNANT NEOPLASM OF UNSP SITE OF UNSPE 09/14/2017 DIANDRA MONTES Ot C50.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 09/14/2017 DIANDRA MONTES Ot E78.00 PURE HYPERCHOLESTEROLEMIA, UNSPECIFIED 09/14/2017 DIANDRA MONTES Ot I10 ESSENTIAL (PRIMARY) HYPERTENSION 09/14/2017 DIANDRA MONTES Ot R73.9 HYPERGLYCEMIA, UNSPECIFIED 09/14/2017 DIANDRA MONTES Ot Z17.0 ESTROGEN RECEPTOR POSITIVE STATUS [ER+] 09/14/2017 DIANDRA MONTES Ot Z79.811 PILLING MACHINE OPERATOR (CURRENT) USE OF AROMATASE INH 09/14/2017 DIANDRA MONTES N Ot Z90.11 ACQUIRED ABSENCE OF RIGHT BREAST AND NIP 09/14/2017 DIANDRA MONTES Ot M47.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 09/14/2017 DIANDRA MONTES N Ot R29.890 LOSS OF HEIGHT 09/14/2017 DIANDRA MONTES Ot M54.9 DORSALGIA, UNSPECIFIED 09/14/2017 DIANDRA MONTES Ot M85.88 OTH DISRD OF BONE DENSITY AND STRUCTURE, 09/14/2017 DIANDRA MONTES N Ot R29.890 LOSS OF HEIGHT 09/14/2017 DIANDRA MONTES Ot Z51.81 ENCOUNTER FOR THERAPEUTIC DRUG LEVEL MON 09/14/2017 DIANDRA MONTES Ot Z78.0 ASYMPTOMATIC MENOPAUSAL STATE 09/14/2017 DIANDRA MONTES Ot C50.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 09/14/2017 DIANDRA MONTES Ot E78.00 PURE HYPERCHOLESTEROLEMIA, UNSPECIFIED 09/14/2017 DIANDRA MONTES Ot I10 ESSENTIAL (PRIMARY) HYPERTENSION 09/14/2017 DIANDRA MONTES Ot R73.9 HYPERGLYCEMIA, UNSPECIFIED 09/14/2017 DIANDRA MONTES Ot Z17.0 ESTROGEN RECEPTOR POSITIVE STATUS [ER+] 09/14/2017 DIANDRA MONTES Ot Z79.811 PILLING MACHINE OPERATOR (CURRENT) USE OF AROMATASE INH 09/14/2017 DIANDRA MONTES Ot Z90.11 ACQUIRED ABSENCE OF RIGHT BREAST AND NIP 09/14/2017 ADELINA BLUE, SIMONE Collins Ot R60.0 LOCALIZED EDEMA 09/14/2017 Ot 793.89 OTH (ABN) FINDINGS ON RADIOLOGICAL EXAMI 09/14/2017 Ot V10.3 HX OF BREAST MALIGNANCY 09/14/2017 Ot V76.11 SCRN MAMMO- HIGH RISK PT, MALIGNANT NEOPL 09/14/2017 Ot 611.72 LUMP OR MASS IN BREAST 09/14/2017 SIMONE SAHU MD Ot 272.4 HYPERLIPIDEMIA NEC/NOS 09/14/2017 SIMONE SAHU MD Ot 611.72 LUMP OR MASS IN BREAST 09/14/2017 RIA VARGAS MD Ot 174.9 MALIGN NEOPL BREAST NOS 09/14/2017 RIA VARGAS MD Ot V72.63 PRE-PROCEDURAL LABORATORY EXAMINATION 09/14/2017 RIA VARGAS MD Ot V72.81 [id number] CARDIOVASCULAR 09/14/2017 RIA VARGAS MD Ot V72.83 EXAM PRE-OPERATIVE NEC 09/14/2017 RIA VARGAS MD Ot V74.8 SCREEN-BACTERIAL DIS NEC 09/14/2017 DIANDRA MONTES N Ot 174.9 MALIGN NEOPL BREAST NOS 09/14/2017 DIANDRA MONTES N Ot 174.9 MALIGN NEOPL BREAST NOS 09/14/2017 GRUPO JAIN SHEET ROLLER OPERATOR Ot 174.9 MALIGN NEOPL BREAST NOS 09/14/2017 GRUPO JAIN SHEET ROLLER OPERATOR Ot 625.8 FEM GENITAL SYMPTOMS NEC 09/14/2017 GRUPO JAIN SHEET ROLLER OPERATOR Ot 793.99 OTH NOSP (ABN) FINDINGS RADIOLOGICAL O 09/14/2017 EMMANUEL MURPHY DOA C Ot 625.8 FEM GENITAL SYMPTOMS NEC 09/14/2017 EMMANUEL MURPHY DOA C Ot 793.5 NOSP (ABN) FINDINGS ON RADIOLOGICAL OT 09/14/2017 JEFFREY TELLES YADIEL C Ot 174.9 MALIGN NEOPL BREAST NOS 09/14/2017 JEFFREY TELLES YADIEL C Ot 620.2 OVARIAN CYST NEC/NOS 09/14/2017 JEFFREY TELLES YADIEL C Ot V72.63 PRE-PROCEDURAL LABORATORY EXAMINATION 09/14/2017 JEFFREY TELLES YADIEL C Ot V74.8 SCREEN-BACTERIAL DIS NEC 09/14/2017 GRUPO JAIN S SHEET ROLLER OPERATOR Ot 174.9 MALIGN NEOPL BREAST NOS 09/14/2017 GRUPO JAIN SHEET ROLLER OPERATOR Ot 780.79 OTH MALAISE FATIGUE 09/14/2017 ADELINA BULE, SIMONE Collins Ot 574.20 CHOLELITHIASIS NOS 09/14/2017 SIMONE SAHU MD Ot 575.6 GB CHOLESTEROLOSIS 09/14/2017 EMMANUEL MURPHY DOA C Ot 574.20 CHOLELITHIASIS NOS 09/14/2017 EMMANUEL MURPHY DOA C Ot 618.01 CYSTOCELE, MIDLINE 09/14/2017 EMMANUEL MURPHY DOA C Ot V72.63 PRE-PROCEDURAL LABORATORY EXAMINATION 09/14/2017 EMMANUEL MURPHY DOA C Ot V74.8 SCREEN-BACTERIAL DIS NEC 09/14/2017 GRUPO JAIN S SHEET ROLLER OPERATOR Ot 174.9 MALIGN NEOPL BREAST NOS 09/14/2017 GRUPO JAIN S SHEET ROLLER OPERATOR Ot 174.9 MALIGN NEOPL BREAST NOS 09/14/2017 DIANDRA MONTES Ot 174.9 MALIGN NEOPL BREAST NOS 09/14/2017 DIANDRA MONTES Ot 995.20 UNSP ADVERSE EFFECT OF UNSP DRUG, MEDICI 09/14/2017 GRUPO JAIN SHEET ROLLER OPERATOR Ot C50.919 MALIGNANT NEOPLASM OF UNSP SITE OF UNSPE 09/14/2017 DIANDRA MONTES Ot C50.919 MALIGNANT NEOPLASM OF UNSP SITE OF UNSPE 09/14/2017 ADELINA BLUE, SIMONE Collins Ot E78.0 PURE HYPERCHOLESTEROLEMIA 09/14/2017 SIMONE SAHU MD Ot R06.00 DYSPNEA, UNSPECIFIED 09/14/2017 ADELINA BLUE, SIMONE Collins Ot R22.42 LOCALIZED SWELLING, MASS AND LUMP, LEFT 09/14/2017 DIANDRA MONTES Scott Ot C50.919 MALIGNANT NEOPLASM OF UNSP SITE OF UNSPE 09/14/2017 KENDY MONTESBENJAMIN Chavez Ot C50.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 09/14/2017 DIANDRA MONTES Scott Ot E78.00 PURE HYPERCHOLESTEROLEMIA, UNSPECIFIED 09/14/2017 SIMONDIANDRA Ot I10 ESSENTIAL (PRIMARY) HYPERTENSION 09/14/2017 SIMON, DIANDRA Chavez Ot R73.9 HYPERGLYCEMIA, UNSPECIFIED 09/14/2017 DIANDRA MONTES Scott Ot Z17.0 ESTROGEN RECEPTOR POSITIVE STATUS [ER+] 09/14/2017 DIANDRA MONTES Ot Z79.811 PENITENTIARY (CURRENT) USE OF AROMATASE INH 09/14/2017 SIMONDIANDRA Ot Z90.11 ACQUIRED ABSENCE OF RIGHT BREAST AND NIP 09/14/2017 DIANDRA MONTES Ot M47.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 09/14/2017 SIMONDIANDRA Ot R29.890 LOSS OF HEIGHT 09/14/2017 SIMONDIANDRA Ot M54.9 DORSALGIA, UNSPECIFIED 09/14/2017 DIANDRA MONTES Ot M85.88 OTH DISRD OF BONE DENSITY AND STRUCTURE, 09/14/2017 SIMON DIANDRA Scott Ot R29.890 LOSS OF HEIGHT 09/14/2017 SIMONDIANDRA ROMERO Scott Ot Z51.81 ENCOUNTER FOR THERAPEUTIC DRUG LEVEL MON 09/14/2017 SIMONDIANDRA Ot Z78.0 ASYMPTOMATIC MENOPAUSAL STATE 09/14/2017 SIMONDIANDRA Ot C50.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 09/14/2017 SIMON DIANDRA Chavez Ot E78.00 PURE HYPERCHOLESTEROLEMIA, UNSPECIFIED 09/14/2017 DIANDRA MONTES N Ot I10 ESSENTIAL (PRIMARY) HYPERTENSION 09/14/2017 SIMONDIANDRA N Ot R73.9 HYPERGLYCEMIA, UNSPECIFIED 09/14/2017 SIMONDIANDRA N Ot Z17.0 ESTROGEN RECEPTOR POSITIVE STATUS [ER+] 09/14/2017 DIANDRA OMNTES Ot Z79.811 PILLING MACHINE OPERATOR (CURRENT) USE OF AROMATASE INH 09/14/2017 SIMONDIANDRA ROMERO Ot Z90.11 ACQUIRED ABSENCE OF RIGHT BREAST AND NIP 09/14/2017 SIMONE SAHU MD Ot R60.0 LOCALIZED EDEMA 10/04/2017 SIMONE SAHU MD Ot M79.604 PAIN IN RIGHT LEG 10/04/2017 SIMONE SAHU MD Ot R60.0 LOCALIZED EDEMA 10/11/2017 SIMONE SAHU MD Ot M79.604 PAIN IN RIGHT LEG 10/11/2017 SIMONE SAHU MD Ot R60.0 LOCALIZED EDEMA 11/15/2017 SIMONE SAHU MD Ot I87.2 VENOUS INSUFFICIENCY (CHRONIC) (PERIPHER 11/15/2017 SIMONE SAHU MD Ot L30.9 DERMATITIS, UNSPECIFIED 11/29/2017 Ot 793.89 OTH (ABN) FINDINGS ON RADIOLOGICAL EXAMI 11/29/2017 Ot V10.3 HX OF BREAST MALIGNANCY 11/29/2017 Ot V76.11 SCRN MAMMO- HIGH RISK PT, MALIGNANT NEOPL 11/29/2017 Ot 611.72 LUMP OR MASS IN BREAST 11/29/2017 SIMONE SAHU MD Ot 272.4 HYPERLIPIDEMIA NEC/NOS 11/29/2017 SIMONE SAHU MD Ot 611.72 LUMP OR MASS IN BREAST 11/29/2017 RIA VARGAS MD Ot 174.9 MALIGN NEOPL BREAST NOS 11/29/2017 RIA VARGAS MD Ot V72.63 PRE-PROCEDURAL LABORATORY EXAMINATION 11/29/2017 RIA VARGAS MD Ot V72.81 [id number] CARDIOVASCULAR 11/29/2017 RIA VARGAS MD Ot V72.83 EXAM PRE-OPERATIVE NEC 11/29/2017 RIA VARGAS MD Ot V74.8 SCREEN-BACTERIAL DIS NEC 11/29/2017 DIANDRA MONTES Ot 174.9 MALIGN NEOPL BREAST NOS 11/29/2017 DIANDRA MONTES Ot 174.9 MALIGN NEOPL BREAST NOS 11/29/2017 GRUPO JAIN SHEET ROLLER OPERATOR Ot 174.9 MALIGN NEOPL BREAST NOS 11/29/2017 GRUPO JAIN SHEET ROLLER OPERATOR Ot 625.8 FEM GENITAL SYMPTOMS NEC 11/29/2017 GRUPO JAIN SHEET ROLLER OPERATOR Ot 793.99 OTH NOSP (ABN) FINDINGS RADIOLOGICAL O 11/29/2017 JEFFREY TELLES YADIEL C Ot 625.8 FEM GENITAL SYMPTOMS NEC 11/29/2017 JEFFREY TELLES YADIEL C Ot 793.5 NOSP (ABN) FINDINGS ON RADIOLOGICAL OT 11/29/2017 JEFFREY TELLES YADIEL C Ot 174.9 MALIGN NEOPL BREAST NOS 11/29/2017 JEFFREY TELLES YADIEL C Ot 620.2 OVARIAN CYST NEC/NOS 11/29/2017 MURPHY DO YADIEL C Ot V72.63 PRE-PROCEDURAL LABORATORY EXAMINATION 11/29/2017 JEFFREY TELLES YADIEL C Ot V74.8 SCREEN-BACTERIAL DIS NEC 11/29/2017 GRUPO JAIN S SHEET ROLLER OPERATOR Ot 174.9 MALIGN NEOPL BREAST NOS 11/29/2017 GRUPO JAIN SHEET ROLLER OPERATOR Ot 780.79 OTH MALAISE FATIGUE 11/29/2017 SIMONE SAHU MD Ot 574.20 CHOLELITHIASIS NOS 11/29/2017 SIMONE SAHU MD Ot 575.6 GB CHOLESTEROLOSIS 11/29/2017 JEFFREY TELLES, YADIEL C Ot 574.20 CHOLELITHIASIS NOS 11/29/2017 JEFFREY TELLES, YADIEL C Ot 618.01 CYSTOCELE, MIDLINE 11/29/2017 EMMANUEL MURPHY DOA C Ot V72.63 PRE-PROCEDURAL LABORATORY EXAMINATION 11/29/2017 EMMANUEL MURPHY DOA C Ot V74.8 SCREEN-BACTERIAL DIS NEC 11/29/2017 GRUPO JAIN SHEET ROLLER OPERATOR Ot 174.9 MALIGN NEOPL BREAST NOS 11/29/2017 GRUPO JAIN SHEET ROLLER OPERATOR Ot 174.9 MALIGN NEOPL BREAST NOS 11/29/2017 DIANDRA MONTES Ot 174.9 MALIGN NEOPL BREAST NOS 11/29/2017 DIANDRA MONTES Ot 995.20 UNSP ADVERSE EFFECT OF UNSP DRUG, MEDICI 11/29/2017 GRUPO JAIN SHEET ROLLER OPERATOR Ot C50.919 MALIGNANT NEOPLASM OF UNSP SITE OF UNSPE 11/29/2017 DIANDRA MONTES Ot C50.919 MALIGNANT NEOPLASM OF UNSP SITE OF UNSPE 11/29/2017 SIMONE SAHU MD Ot E78.0 PURE HYPERCHOLESTEROLEMIA 11/29/2017 SIMONE SAHU MD Ot R06.00 DYSPNEA, UNSPECIFIED 11/29/2017 SAHU MD, SIMONE D Ot R22.42 LOCALIZED SWELLING, MASS AND LUMP, LEFT 11/29/2017 DIANDRA MONTES Scott Ot C50.919 MALIGNANT NEOPLASM OF UNSP SITE OF UNSPE 11/29/2017 DIANDRA MONTES Scott Ot C50.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 11/29/2017 DIANDRA MONTES N Ot E78.00 PURE HYPERCHOLESTEROLEMIA, UNSPECIFIED 11/29/2017 SIMON, KENDYBENJAMIN N Ot I10 ESSENTIAL (PRIMARY) HYPERTENSION 11/29/2017 SIMONDIANDRA ROMERO N Ot R73.9 HYPERGLYCEMIA, UNSPECIFIED 11/29/2017 DIANDRA MONTES N Ot Z17.0 ESTROGEN RECEPTOR POSITIVE STATUS [ER+] 11/29/2017 SIMONKENDY ROMEROBENJAMIN N Ot Z79.811 PENITENTIARY (CURRENT) USE OF AROMATASE INH 11/29/2017 SIMONDIANDRA ROMERO Scott Ot Z90.11 ACQUIRED ABSENCE OF RIGHT BREAST AND NIP 11/29/2017 SIMONDIANDRA Ot M47.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 11/29/2017 SIMON DIANDRA Scott Ot R29.890 LOSS OF HEIGHT 11/29/2017 DIANDRA MONTES Scott Ot M54.9 DORSALGIA, UNSPECIFIED 11/29/2017 SIMONDIANDRA ROMERO Scott Ot M85.88 OTH DISRD OF BONE DENSITY AND STRUCTURE, 11/29/2017 DIANDRA MONTES N Ot R29.890 LOSS OF HEIGHT 11/29/2017 DIANDRA MONTES Scott Ot Z51.81 ENCOUNTER FOR THERAPEUTIC DRUG LEVEL MON 11/29/2017 SIMONDIANDRA ROMERO Scott Ot Z78.0 ASYMPTOMATIC MENOPAUSAL STATE 11/29/2017 DIANDRA MONTES Scott Ot C50.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 11/29/2017 DIANDRA MONTES N Ot E78.00 PURE HYPERCHOLESTEROLEMIA, UNSPECIFIED 11/29/2017 SIMONDIANDRA N Ot I10 ESSENTIAL (PRIMARY) HYPERTENSION 11/29/2017 SIMONDIANDRA N Ot R73.9 HYPERGLYCEMIA, UNSPECIFIED 11/29/2017 SIMON KENDYBENJAMIN N Ot Z17.0 ESTROGEN RECEPTOR POSITIVE STATUS [ER+] 11/29/2017 SIMONDIANDRA N Ot Z79.811 PENITENTIARY (CURRENT) USE OF AROMATASE INH 11/29/2017 DIANDRA MONTES N Ot Z90.11 ACQUIRED ABSENCE OF RIGHT BREAST AND NIP 11/29/2017 ADELINA BLUE, SIMONE Collins Ot M79.604 PAIN IN RIGHT LEG 11/29/2017 SIMONE SAHU MD Ot R60.0 LOCALIZED EDEMA 11/29/2017 SIMONE SAHU MD Ot I87.2 VENOUS INSUFFICIENCY (CHRONIC) (PERIPHER 11/29/2017 SIMONE SAHU MD Ot L30.9 DERMATITIS, UNSPECIFIED 12/28/2017 MONISHA RENNER MD, Ot E11.9 TYPE 2 DIABETES MELLITUS WITHOUT COMPLIC 12/28/2017 MONISHA RENNER MD, Ot E78.00 PURE HYPERCHOLESTEROLEMIA, UNSPECIFIED 12/28/2017 MONISHA RENNER MD, Ot E78.5 HYPERLIPIDEMIA, UNSPECIFIED 12/28/2017 MONISHA RENNER MD Ot I10 ESSENTIAL (PRIMARY) HYPERTENSION 12/28/2017 MONISHA RENNER MD Ot R07.89 OTHER CHEST PAIN 12/28/2017 MONISHA RENNER MD Ot R20.8 OTHER DISTURBANCES OF SKIN SENSATION 12/28/2017 MONISHA RENNER MD Ot R55 SYNCOPE AND COLLAPSE 12/28/2017 MONISHA RENNER MD Ot Z79.84 PENITENTIARY (CURRENT) USE OF ORAL HYPOGLYC 12/28/2017 MONISHA RENNER MD Ot Z87.891 PERSONAL HISTORY OF NICOTINE DEPENDENCE 12/28/2017 MONISHA RENNER MD, Ot E11.9 TYPE 2 DIABETES MELLITUS WITHOUT COMPLIC 12/28/2017 MONISHA RENNER MD, Ot E78.00 PURE HYPERCHOLESTEROLEMIA, UNSPECIFIED 12/28/2017 MONISHA RENNER MD, Ot E78.5 HYPERLIPIDEMIA, UNSPECIFIED 12/28/2017 MONISHA RENNER MD Ot I10 ESSENTIAL (PRIMARY) HYPERTENSION 12/28/2017 MONISHA RENNER MD Ot R07.89 OTHER CHEST PAIN 12/28/2017 MONISHA RENNER MD Ot R20.8 OTHER DISTURBANCES OF SKIN SENSATION 12/28/2017 MONISHA RENNER MD Ot R55 SYNCOPE AND COLLAPSE 12/28/2017 MONISHA RENNER MD Ot Z79.84 PENITENTIARY (CURRENT) USE OF ORAL HYPOGLYC 12/28/2017 MONISHA RENNER MD Ot Z87.891 PERSONAL HISTORY OF NICOTINE DEPENDENCE 01/23/2018 Ayla ELISE MD, Ot R55 SYNCOPE AND COLLAPSE 02/02/2018 Ayla ELISE MD, Ot R55 SYNCOPE AND COLLAPSE Procedures Code Description Performed By Performed On 47.01 LAPAROSCOP APPENDECTOMY 09/04/2014 Results Test Result Range Complete blood count (CBC) with automated white blood cell (WBC) differential - 12/27/17 11:57 Blood leukocytes automated count (number/volume) 12.0 10*3/uL 4.3-11.0 Blood erythrocytes automated count (number/volume) 5.03 10*6/uL 4.35-5.85 Venous blood hemoglobin measurement (mass/volume) 14.2 g/dL 11.5-16.0 Blood hematocrit (volume fraction) 42 % 35-52 Automated erythrocyte mean corpuscular volume 83 [foz_us] 80-99 Automated erythrocyte mean corpuscular hemoglobin (mass per erythrocyte) 28 pg 25-34 Automated erythrocyte mean corpuscular hemoglobin concentration measurement ( mass/volume) 34 g/dL 32-36 Automated erythrocyte distribution width ratio 14.3 % 10.0-14.5 Automated blood platelet count (count/volume) 336 10*3/uL 130-400 Automated blood platelet mean volume measurement 9.1 [foz_us] 7.4-10.4 Automated blood neutrophils/100 leukocytes 90 % 42-75 Automated blood lymphocytes/100 leukocytes 7 % 12-44 Blood monocytes/100 leukocytes 3 % 0-12 Automated blood eosinophils/100 leukocytes 0 % 0-10 Automated blood basophils/100 leukocytes 0 % 0-10 Blood neutrophils automated count (number/volume) 10.8 10*3 1.8-7.8 Blood lymphocytes automated count (number/volume) 0.8 10*3 1.0-4.0 Blood monocytes automated count (number/volume) 0.4 10*3 0.0-1.0 Automated eosinophil count 0.0 10*3/uL 0.0-0.3 Automated blood basophil count (count/volume) 0.0 10*3/uL 0.0-0.1 Whole blood basic metabolic panel - 12/27/17 11:57 Serum or plasma sodium measurement (moles/volume) 135 mmol/L 135-145 Serum or plasma potassium measurement (moles/volume) 3.6 mmol/L 3.6-5.0 Serum or plasma chloride measurement (moles/volume) 99 mmol/L 98-107 Carbon dioxide 25 mmol/L 21-32 Serum or plasma anion gap determination (moles/volume) 11 mmol/L 5-14 Serum or plasma urea nitrogen measurement (mass/volume) 14 mg/dL 7-18 Serum or plasma creatinine measurement (mass/volume) 0.85 mg/dL 0.60-1.30 Serum or plasma urea nitrogen/creatinine mass ratio 16 NRG Serum or plasma creatinine measurement with calculation of estimated glomerular filtration rate > NRG Serum or plasma glucose measurement (mass/volume) 157 mg/dL 70-105 Serum or plasma calcium measurement (mass/volume) 9.7 mg/dL 8.5-10.1 Blood manual differential performed detection - 12/27/17 11:57 Blood monocytes/100 leukocytes 1 % NRG Manual blood segmented neutrophils/100 leukocytes 91 % NRG Manual blood lymphocytes/100 leukocytes 8 % NRG Blood erythrocyte morphology finding identification NORMAL NRG Serum or plasma troponin i.cardiac measurement (mass/volume) - 12/27/17 11:57 Serum or plasma troponin i.cardiac measurement (mass/volume) < ng/ mL <0.30 Capillary blood glucose measurement by glucometer (mass/volume) - 12/27/17 16: 07 Capillary blood glucose measurement by glucometer (mass/volume) 123 mg/dL 70-110 Capillary blood glucose measurement by glucometer (mass/volume) - 12/27/17 21: 32 Capillary blood glucose measurement by glucometer (mass/volume) 101 mg/dL 70-110 Capillary blood glucose measurement by glucometer (mass/volume) - 12/28/17 05: 57 Capillary blood glucose measurement by glucometer (mass/volume) 132 mg/dL 70-110 Complete blood count (CBC) with automated white blood cell (WBC) differential - 12/28/17 06:14 Blood leukocytes automated count (number/volume) 7.2 10*3/uL 4.3-11.0 Blood erythrocytes automated count (number/volume) 4.55 10*6/uL 4.35-5.85 Venous blood hemoglobin measurement (mass/volume) 13.5 g/dL 11.5-16.0 Blood hematocrit (volume fraction) 38 % 35-52 Automated erythrocyte mean corpuscular volume 84 [foz_us] 80-99 Automated erythrocyte mean corpuscular hemoglobin (mass per erythrocyte) 30 pg 25-34 Automated erythrocyte mean corpuscular hemoglobin concentration measurement ( mass/volume) 35 g/dL 32-36 Automated erythrocyte distribution width ratio 14.1 % 10.0-14.5 Automated blood platelet count (count/volume) 285 10*3/uL 130-400 Automated blood platelet mean volume measurement 9.3 [foz_us] 7.4-10.4 Automated blood neutrophils/100 leukocytes 72 % 42-75 Automated blood lymphocytes/100 leukocytes 17 % 12-44 Blood monocytes/100 leukocytes 9 % 0-12 Automated blood eosinophils/100 leukocytes 2 % 0-10 Automated blood basophils/100 leukocytes 1 % 0-10 Blood neutrophils automated count (number/volume) 5.2 10*3 1.8-7.8 Blood lymphocytes automated count (number/volume) 1.2 10*3 1.0-4.0 Blood monocytes automated count (number/volume) 0.6 10*3 0.0-1.0 Automated eosinophil count 0.1 10*3/uL 0.0-0.3 Automated blood basophil count (count/volume) 0.1 10*3/uL 0.0-0.1 Whole blood basic metabolic panel - 12/28/17 06:14 Serum or plasma sodium measurement (moles/volume) 135 mmol/L 135-145 Serum or plasma potassium measurement (moles/volume) 3.3 mmol/L 3.6-5.0 Serum or plasma chloride measurement (moles/volume) 103 mmol/L 98-107 Carbon dioxide 23 mmol/L 21-32 Serum or plasma anion gap determination (moles/volume) 9 mmol/L 5-14 Serum or plasma urea nitrogen measurement (mass/volume) 11 mg/dL 7-18 Serum or plasma creatinine measurement (mass/volume) 0.75 mg/dL 0.60-1.30 Serum or plasma urea nitrogen/creatinine mass ratio 15 NRG Serum or plasma creatinine measurement with calculation of estimated glomerular filtration rate > NRG Serum or plasma glucose measurement (mass/volume) 134 mg/dL 70-105 Serum or plasma calcium measurement (mass/volume) 8.9 mg/dL 8.5-10.1 Capillary blood glucose measurement by glucometer (mass/volume) - 12/28/17 11: 42 Capillary blood glucose measurement by glucometer (mass/volume) 133 mg/dL 70-110 Capillary blood glucose measurement by glucometer (mass/volume) - 12/28/17 15: 37 Capillary blood glucose measurement by glucometer (mass/volume) 107 mg/dL 70-110 Complete blood count (CBC) with automated white blood cell (WBC) differential - 02/21/18 09:29 Blood leukocytes automated count (number/volume) 9.6 10*3/uL 4.3-11.0 Blood erythrocytes automated count (number/volume) 4.77 10*6/uL 4.35-5.85 Venous blood hemoglobin measurement (mass/volume) 13.8 g/dL 11.5-16.0 Blood hematocrit (volume fraction) 40 % 35-52 Automated erythrocyte mean corpuscular volume 84 [foz_us] 80-99 Automated erythrocyte mean corpuscular hemoglobin (mass per erythrocyte) 29 pg 25-34 Automated erythrocyte mean corpuscular hemoglobin concentration measurement ( mass/volume) 35 g/dL 32-36 Automated erythrocyte distribution width ratio 14.3 % 10.0-14.5 Automated blood platelet count (count/volume) 337 10*3/uL 130-400 Automated blood platelet mean volume measurement 9.3 [foz_us] 7.4-10.4 Automated blood neutrophils/100 leukocytes 82 % 42-75 Automated blood lymphocytes/100 leukocytes 12 % 12-44 Blood monocytes/100 leukocytes 5 % 0-12 Automated blood eosinophils/100 leukocytes 0 % 0-10 Automated blood basophils/100 leukocytes 1 % 0-10 Blood neutrophils automated count (number/volume) 7.9 10*3 1.8-7.8 Blood lymphocytes automated count (number/volume) 1.1 10*3 1.0-4.0 Blood monocytes automated count (number/volume) 0.5 10*3 0.0-1.0 Automated eosinophil count 0.0 10*3/uL 0.0-0.3 Automated blood basophil count (count/volume) 0.1 10*3/uL 0.0-0.1 Capillary blood glucose measurement by glucometer (mass/volume) - 02/21/18 09: 40 Capillary blood glucose measurement by glucometer (mass/volume) 193 mg/dL 70-110 Encounters ACCT No. Visit Date/Time Discharge Status Pt. Type Provider Facility Loc./Unit Complaint [id number] 02/01/2018 09:30:00 02/01/2018 23:59:59 CLS Outpatient Ayla ELISE MD [facility] CARD SYNCOPE [id number] 12/28/2017 16:32:00 12/28/2017 23:59:59 CLS Outpatient Ayla ELISE MD [facility] CARD SYNCOPE [id number] 12/27/2017 11:50:00 12/28/2017 15:43:00 DIS Inpatient MONISHA RENNER MD [facility] 4TH SYNCOPE, POSSIBLE UNSTABLE ANGINA [id number] 11/15/2017 10:42:00 11/15/2017 15:20:00 DIS Outpatient SIMONE SAHU MD [facility] REHAB B LE EDEMA [id number] 09/14/2017 07:32:00 09/14/2017 23:59:59 CLS Outpatient SIMONE SAHU MD [facility] RAD RT LE EDEMA AND PAIN [id number] 07/13/2017 00:21:00 07/13/2017 23:59:59 CLS Preadmit SIMON, BOBAN N [facility] ONC [id number] 04/13/2017 08:52:00 07/12/2017 00:01:00 DIS Outpatient SIMON, BOBAN N [facility] ONC [id number] 06/01/2017 10:10:00 06/01/2017 23:59:59 CLS Outpatient SIMON, BOBAN N [facility] RAD R29.890 LOSS OF HEIGHT, M54.9 BACK PAIN [id number] 05/09/2017 12:29:00 05/09/2017 23:59:59 CLS Outpatient SIMON, BOBAN N [facility] RAD M54.9 R29.890 [id number] 10/26/2016 09:22:00 10/26/2016 23:59:59 CLS Outpatient SIMON BOBAN N [facility] ONC [id number] 04/11/2016 09:33:00 04/11/2016 23:59:59 CLS Outpatient SIMON BOBAN N [facility] ONC [id number] 11/26/2015 10:48:00 12/31/2015 09:55:00 DIS Outpatient SIMONE SAHU MD [facility] REHAB VENOUS INSUFF OF LE'S; SETUP COMPRESSION GARMENTS [id number] 10/19/2015 10:00:00 10/19/2015 23:59:59 CLS Outpatient SIMONE SAHU MD [facility] RAD LEFT LOWER EXTREMITY SWELLING,JEFFERSON [id number] 10/05/2015 08:53:00 10/05/2015 23:59:59 CLS Outpatient SIMONE SAHU MD [facility] LAB [id number] 10/05/2015 08:50:00 10/05/2015 23:59:59 CLS Outpatient DIANDRA MONTES [facility] ONC [id number] 04/06/2015 08:41:00 04/06/2015 23:59:59 CLS Outpatient GRUPO JAIN [facility] ONC [id number] 01/05/2015 08:45:00 03/04/2015 00:01:00 DIS Outpatient DIANDRA MONTES [facility] ONC [id number] 01/08/2015 08:12:00 01/08/2015 23:59:59 CLS Outpatient DIANDRA MONTES [facility] RAD BREAST CANCER AGENTS EFFECTING ESTROGEN LEVELS [id number] 10/06/2014 09:05:00 01/04/2015 00:01:00 DIS Outpatient DIANDRA MONTES [facility] ONC [id number] 09/04/2014 16:27:00 09/08/2014 14:26:00 DIS Inpatient SIMONE SAHU MD [facility] SURGICAL ACUTE APPENDICITIS [id number] 07/14/2014 07:46:00 07/14/2014 23:59:59 CLS Outpatient GRUPO JAIN [facility] ONC [id number] 04/14/2014 08:48:00 07/13/2014 00:01:00 DIS Outpatient DIANDRA MONTES [facility] ONC [id number] 01/07/2014 09:39:00 04/07/2014 00:01:00 DIS Outpatient DIANDRA MONTES [facility] ONC [id number] 01/07/2014 16:23:00 01/07/2014 23:59:59 CLS Outpatient RGUPO JAIN [facility] ONC [id number] 12/10/2013 07:01:00 12/11/2013 11:25:00 DIS Outpatient YADIEL MURPHY DO [facility] CYSTOCELE GALL STONES [id number] 12/05/2013 14:18:00 12/05/2013 23:59:59 CLS Outpatient YADIEL MURPHY DO [facility] PREOP CYSTOCELE [id number] 11/12/2013 07:38:00 11/12/2013 23:59:59 CLS Outpatient SIMONE SAHU MD [facility] RAD RUQ PAIN [id number] 09/16/2013 09:27:00 09/16/2013 23:59:59 CLS Outpatient DIANDRA MONTES [facility] ONC [id number] 06/24/2013 12:41:00 06/24/2013 23:59:59 CLS Outpatient GRUPO JAIN [facility] ONC [id number] 03/25/2013 10:30:00 06/23/2013 00:01:00 DIS Outpatient DIANDRA MONTES [facility] ONC [id number] 05/14/2013 06:00:00 05/15/2013 11:00:00 DIS Outpatient YADIEL MURPHY DO [facility] OVARIAN CYSTS; BREAST CANCER [id number] 05/09/2013 11:38:00 05/09/2013 23:59:59 CLS Outpatient YADIEL MURPHY DO [facility] PREOP OVARIAN CYSTS;BREAST CANCER [id number] 03/06/2013 13:54:00 03/06/2013 23:59:59 CLS Outpatient YADIEL MURPHY DO [facility] RAD THICKENING EDNO,ADNEXAL MASS [id number] 12/03/2012 14:09:00 03/03/2013 00:01:00 DIS Outpatient DIANDRA MONTES [facility] ONC [id number] 12/26/2012 11:28:00 12/26/2012 23:59:59 CLS Outpatient GRUPO JAIN [employer] [facility] RAD RT ADNEXAL MASS,ABN PET [id number] 12/26/2012 08:51:00 12/26/2012 23:59:59 CLS Outpatient GRUPO JAIN [employer] [facility] ONC [id number] 12/11/2012 11:14:00 12/11/2012 23:59:59 CLS Outpatient DIANDRA MONTES [facility] RAD BREAST CANCER [id number] 12/07/2012 09:13:00 12/07/2012 23:59:59 CLS Outpatient DIANDRA MONTES [facility] RAD HORMONAL TREATMENT DECREASED BONE,BREAST CA [id number] 11/15/2012 22:25:00 11/16/2012 14:30:00 DIS Outpatient RIA VARGAS MD [facility] RAD RT BREAST CA [id number] 11/12/2012 08:06:00 11/12/2012 23:59:59 CLS Outpatient RIA VARGAS MD [facility] PREOP RIGHT BREAST CANCER [id number] 10/02/2012 10:07:00 10/02/2012 23:59:59 CLS Outpatient SIMONE SAHU MD [facility] RAD RT BREAST LUMP [id number] 02/21/2018 09:50:00 Document Registration [id number] 09/04/2014 16:29:00 Document Registration [id number] 09/04/2014 16:29:00 Document Registration [id number] 09/17/2012 07:24:00 Document Registration [id number] 09/04/2012 09:41:00 Document Registration [id number] 07/26/2011 11:29:00 Document Registration [id number] 07/10/2009 10:39:00 Document Registration
[2018-02-21] MEDS ORDERED: KCL 20 MEQ TAB (K-DUR) PO ONE (11:45)
[2018-02-21 12:23] VITALS: BP 129/67
== END 2018-02-21 12:13 | disposition home or self-care (01) ==
LOC: EDUNIT# 09:10 → ER 09:11
DX: R07.89 Other chest pain (principal); E78.00 Pure hypercholesterolemia, unspecified; I10 Essential (primary) hypertension; E11.9 Type 2 diabetes mellitus without complications; Z82.49 Family history of ischemic heart disease and other diseases of the circulatory system; Z85.3 Personal history of malignant neoplasm of breast; Z90.13 Acquired absence of bilateral breasts and nipples; Z87.448 Personal history of other diseases of urinary system; Z88.0 Allergy status to penicillin; Z91.040 Latex allergy status; Z88.8 Allergy status to other drugs, medicaments and biological substances; Z79.84 Long term (current) use of oral hypoglycemic drugs; Z87.891 Personal history of nicotine dependence; Z90.710 Acquired absence of both cervix and uterus
CPT/HCPCS: 36415; 71045; 80053; 82962; 83735; 83874; 83880; 84484; 85025; 85610; 85730; 93005; 93041

== ENCOUNTER 2018-04-20 11:16 | Outpatient (RCR) | payer MEDICARE ==
[~2018-04-20 11:16] MED LIST changes: -GADOBUTROL 10 MMOL/10 ML (GADAVIST) VIAL IV ONE
[2018-05-14] MEDS ORDERED: METO-387 PO (09:10)
[2018-05-14] MEDS ORDERED: MULT-985 PO (09:10)
[2018-05-14] MEDS ORDERED: POTA8TAB6 PO (09:10)
== END 2018-07-10 | disposition home or self-care (01) ==
LOC: ONC 11:16
PROVIDERS: ATTEND Internal Medicine Hematology & Oncology
DX: C50.411 Malignant neoplasm of upper-outer quadrant of right female breast (principal); Z17.0 Estrogen receptor positive status [ER+]; I10 Essential (primary) hypertension; E78.00 Pure hypercholesterolemia, unspecified; R73.9 Hyperglycemia, unspecified; Z90.11 Acquired absence of right breast and nipple; Z79.811 Long term (current) use of aromatase inhibitors
CPT/HCPCS: 99213

== ENCOUNTER → 2018-04-20 | Outpatient (CLI) | payer MEDICARE ==
[~2018-04-20] MED LIST changes: +GADOBUTROL 10 MMOL/10 ML (GADAVIST) VIAL IV ONE
--- NOTE | 2018-04-20 12:52 | Diagnostic Imaging Report ---
PROCEDURE: MR imaging of the brain with and without contrast. TECHNIQUE: Multiplanar, multisequence MR imaging of the brain was performed with and without contrast. INDICATION: A recent syncopal event and concussion. Patient complains of bilateral leg weakness. COMPARISON: No prior studies are available for comparison. FINDINGS: Ventricles and sulci are appropriate for the patient's age. There are periventricular and subcortical white matter signal foci consistent with chronic microvascular ischemia. No diffusion restriction is identified to suggest acute ischemia. The normal expected flow-voids within the carotid siphons are seen. No acute intra-axial or extra-axial hemorrhage is detected. No abnormal enhancement following contrast administration is seen. The corpus callosum is unremarkable. The sella and parasellar structures are unremarkable. IMPRESSION: Chronic and senescent changes. No acute intracranial process is detected. Dictated by: Dictated on workstation # [id number]
== END ==
LOC: RAD 11:08
PROVIDERS: ATTEND Internal Medicine Hematology & Oncology
DX: C50.411 Malignant neoplasm of upper-outer quadrant of right female breast (principal); S06.0X9A Concussion with loss of consciousness of unspecified duration, initial encounter
CPT/HCPCS: 70553

== ENCOUNTER 2018-05-14 09:15 | Outpatient (CLI) | payer MEDICARE ==
[~2018-05-14] VITALS: Ht 160 cm; Wt 81.0 kg
[~2018-05-14 09:15] MED LIST changes: +METO-387 PO; +MULT-985 PO
== END 2018-05-14 10:27 | disposition home or self-care (01) ==
LOC: PREOP 09:15
PROVIDERS: ATTEND Internal Medicine
DX: Z01.818 Encounter for other preprocedural examination (principal)

== ENCOUNTER 2018-05-18 08:52 | Day surgery (SDC) | payer MEDICARE ==
--- NOTE | 2018-05-07 17:40 | HISTORY AND PHYSICAL ---
DATE OF SERVICE: COLONOSCOPY HISTORY AND PHYSICAL HISTORY OF PRESENT ILLNESS: The patient is a 73-year-old white female, who was seen in the office on 05/03/2018, reporting a several week history of intermittent bright red blood per rectum. She denied any associated pain, but reports she has been feeling fatigued. Ever since she had a syncopal episode and fell striking her head. She has felt fatigued. She denies headaches, but has been troubled by a pulsatile sensation noted in her eyes and lips, especially when she lays down at night. She has not had any associated palpitations, has not been aware of any heart irregularity associated with this. She has felt more stressed and is concerned that there may be something serious going on. She has had some chronic complaints of fatigue over the past several years. PAST MEDICAL HISTORY: She last underwent colonoscopy eight years ago at which time, there was no evidence for any significant neoplasia. She has one grandparent with colon cancer. There are no first degree relatives with colon cancer. She has a past history of hypertension. She denies any significant indigestion symptoms, abdominal pain, change in bowel habit or weight loss. PHYSICAL EXAMINATION: GENERAL: Reveals a somewhat anxious appearing white female, otherwise in no acute distress. VITAL SIGNS: Blood pressure 160/84, weight 180, unchanged, in her usual weight range. Heart rate 72 and regular. HEENT: Unremarkable. Sclerae nonicteric. NECK: Revealed no JVD, adenopathy or bruits. CARDIOVASCULAR: Regular rate and rhythm without murmur, S3 or S4. ABDOMEN: Soft, supple without mass, organomegaly or tenderness. EXTREMITIES: Reveal some chronic stable venous insufficiency changes of the right lower extremity without evidence for ulceration or erythema. There is some chronic hyperpigmentation. Left lower extremity is unremarkable. Trace edema on the right, none on the left. ASSESSMENT AND PLAN: 1. The patient was set up for colonoscopy on 05/18/2018 due to history of lower gastrointestinal bleed. 2. Hypertension. Considering this and a pulsatile sensation in the eyes, which I suspect may be due to increase in adrenaline levels, we will initiate beta-aminta therapy, metoprolol XL 25 mg daily and monitor blood pressure at the time of her endoscopy and she will follow up in the office at a time to be determined after her colonoscopy on the . In her evaluation, reviewing her past medical record, discussion of colonoscopy and prep instructions, 30 minutes face to face time was spent. We did send off a CBC and a TSH considering fatigue symptoms and lower GI bleed as well. Blood tests are pending at the time of this evaluation. Job ID: [id number] DocumentID: [id number] Dictated Date: 05/03/2018 15:38:28 [employer] [place] Hand Date: 05/03/2018 16:04:52 Dictated By: SIMONE SAHU MD
[~2018-05-18] VITALS: Ht 160 cm; Wt 81.0 kg
--- OUTSIDE RECORDS SUMMARY | 2018-05-18 09:04 | XMS REPORT | Continuity of Care Document ---
Author Author [facility] Organization [facility] Address Unknown Phone Unavailable Allergies Active Description Code Type Severity Reaction Onset Reported/Identified Relationship to Patient Clinical Status Yes amoxicillin [id number] Drug Allergy Unknown HIVES 12/09/2013 Yes anastrozole [id number] Drug Allergy Unknown RASH 12/09/2013 Yes latex [id number] Drug Allergy Unknown RASH 12/09/2013 Yes letrozole [id number] Drug Allergy Unknown "MUSCLE ACHES" 12/09/2013 Yes pravastatin [id number] Drug Allergy Unknown "MUSCLE ACHES" 12/09/2013 Yes simvastatin [id number] Drug Allergy Unknown "MUSCLE ACHES" 12/09/2013 Yes [...] SIMONDIANDRA N Ot 174.9 06/24/2014 GRUPO JAIN DENIER 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 Ot 174.9 07/03/2014 GRUPO JAIN DENIER 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 Ot 174.9 07/13/2014 DIANDRA MONTES N [...] N Ot 174.9 09/04/2014 GRUPO JAIN S DENIER 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 Ot 174.9 09/04/2014 JAIN GRUPO S DENIER 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 Ot 625.8 09/04/2014 JAIN GRUPO S DENIER 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 Ot 793.99 09/04/2014 MURPHY DO, YADIEL C Ot 625.8 09/04/2014 MURPHY DO, YADIEL C Ot 793.5 09/04/2014 MURPHY DO, YADIEL C Ot 174.9 09/04/2014 MURPHY DO, YADIEL C Ot 620.2 09/04/2014 MURPHY DO, YADIEL C Ot V72.63 09/04/2014 MURPHY DO, YADIEL C Ot V74.8 09/04/2014 JAIN GRUPO S DENIER 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 Ot 174.9 09/04/2014 JAIN GRUPO S DENIER 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 Ot 780.79 09/04/2014 ADELINA BLUE, SIMONE Collins Ot 574.20 09/04/2014 ADELINA BLUE, SIMONE Collins Ot 575.6 09/04/2014 MURPHY DO, YADIEL C Ot 574.20 09/04/2014 MURPHY DO, YADIEL C Ot 618.01 09/04/2014 MURPHY DO, YADIEL C Ot V72.63 09/04/2014 MURPHY DO, YADIEL C Ot V74.8 09/04/2014 SUSY GRUPO S DENIER 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 Ot 174.9 09/04/2014 JAIN GRUPO S DENIER 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 Ot 174.9 09/04/2014 SIMON, BOBAN N [...] SAHU MD Ot 716.90 ARTHROPATHY NOS-UNSPEC 09/08/2014 ADELINA BLUE, SIMONE Collins Ot V10.3 HX OF [...] MONTES N Ot 174.9 05/04/2015 GRUPO JAIN DENIER 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 Ot C50.919 05/07/2015 GRUPO JAIN DENIER 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 Ot C50.919 10/05/2015 ADELINA BLUE, SIMONE [...] VENOUS INSUFFICIENCY (CHRONIC) (PERIPHER 12/04/2015 GRUPO JAIN DENIER 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 Ot 625.8 FEM GENITAL SYMPTOMS NEC 12/04/2015 GRUPO JAIN DENIER 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 Ot 793.99 OTH NOSP (ABN) FINDINGS [...] EXAMINATION 10/26/2016 RIA VARGAS MD Ot V72.81 VELL-[id number] CARDIOVASCULAR 10/26/2016 RIA VARGAS MD Ot V72.83 EXAM PRE-OPERATIVE NEC 10/26/2016 RIA VARGAS MD Ot V74.8 SCREEN-BACTERIAL DIS NEC 10/26/2016 DIANDRA MONTES Ot 174.9 MALIGN NEOPL BREAST NOS 10/26/2016 DIANDRA MONTES Ot 174.9 MALIGN NEOPL BREAST NOS 10/26/2016 GRUPO JAIN DENIER 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 Ot 174.9 MALIGN NEOPL BREAST NOS 10/26/2016 GRUPO JAIN DENIER 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 Ot 625.8 FEM GENITAL SYMPTOMS NEC 10/26/2016 GRUPO JAIN DENIER 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 Ot 793.99 OTH NOSP (ABN) FINDINGS RADIOLOGICAL O 10/26/2016 EMMANUEL MURPHY DOA C Ot 625.8 FEM GENITAL SYMPTOMS NEC 10/26/2016 EMMANUEL MURPHY DOA C Ot 793.5 NOSP (ABN) FINDINGS ON RADIOLOGICAL OT 10/26/2016 JEFFREY TELLES YADIEL C Ot 174.9 MALIGN NEOPL BREAST NOS 10/26/2016 EMMANUEL MURPHY DOA C Ot 620.2 OVARIAN CYST NEC/NOS 10/26/2016 EMMANUEL MURPHY DOA C Ot V72.63 PRE-PROCEDURAL LABORATORY EXAMINATION 10/26/2016 YADIEL MURPHY DO C Ot V74.8 SCREEN-BACTERIAL DIS NEC 10/26/2016 GRUPO JAIN DENIER 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 Ot 174.9 MALIGN NEOPL BREAST NOS 10/26/2016 GRUPO JAIN DENIER 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 Ot 780.79 OTH MALAISE FATIGUE 10/26/2016 ADELINA BLUE, SIMONE Collins Ot 574.20 CHOLELITHIASIS NOS 10/26/2016 SIMONE SAHU MD Ot 575.6 GB CHOLESTEROLOSIS 10/26/2016 YADIEL MURPHY DO Ot 574.20 CHOLELITHIASIS NOS 10/26/2016 YADIEL MURPHY DO Ot 618.01 CYSTOCELE, MIDLINE 10/26/2016 YADIEL MURPHY DO C Ot V72.63 PRE-PROCEDURAL LABORATORY EXAMINATION 10/26/2016 YADIEL MURPHY DO C Ot V74.8 SCREEN-BACTERIAL DIS NEC 10/26/2016 GRUPO JAIN DENIER 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 Ot 174.9 MALIGN NEOPL BREAST NOS 10/26/2016 GRUPO JAIN DENIER 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 Ot 174.9 MALIGN NEOPL BREAST NOS 10/26/2016 DIANDRA MONTES Ot 174.9 MALIGN NEOPL BREAST NOS 10/26/2016 DIANDRA MONTES Ot 995.20 UNSP ADVERSE EFFECT OF UNSP DRUG, MEDICI 10/26/2016 GRUPO JAIN DENIER 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 Ot C50.919 MALIGNANT NEOPLASM OF UNSP [...] STATUS [ER+] 11/16/2016 SIMONDIANDRA N Ot Z79.811 LEARNING DISABILITIES RESOURCE TEACHER (CURRENT) USE OF AROMATASE INH 11/16/2016 SIMONDIANDRA [...] STATUS [ER+] 11/24/2016 SIMONDIANDRA N Ot Z79.811 LEARNING DISABILITIES RESOURCE TEACHER (CURRENT) USE OF AROMATASE INH 11/24/2016 SIMONDIANDRA [...] STATUS [ER+] 04/14/2017 DIANDRA MONTES Ot Z79.811 INTERMEDIATE (CURRENT) USE OF AROMATASE INH 04/14/2017 DIANDRA [...] EXAMINATION 05/09/2017 RIA VARGAS MD Ot V72.81 [id number]-[id number] CARDIOVASCULAR 05/09/2017 RIA VARGAS MD Ot V72.83 EXAM PRE-OPERATIVE NEC 05/09/2017 RIA VARGAS MD Ot V74.8 SCREEN-BACTERIAL DIS NEC 05/09/2017 DIANDRA MONTES Scott Ot 174.9 MALIGN NEOPL BREAST NOS 05/09/2017 DIANDRA MONTES Scott Ot 174.9 MALIGN NEOPL BREAST NOS 05/09/2017 GRUPO JAIN DENIER 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 Ot 174.9 MALIGN NEOPL BREAST NOS 05/09/2017 GRUPO JAIN DENIER 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 Ot 625.8 FEM GENITAL SYMPTOMS NEC 05/09/2017 GRUPO JAIN DENIER 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 Ot 793.99 OTH NOSP (ABN) FINDINGS [...] SCREEN-BACTERIAL DIS NEC 05/09/2017 JAINGRUPO Seymour S DENIER 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 Ot 174.9 MALIGN NEOPL BREAST NOS 05/09/2017 GRUPO JAIN S DENIER 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 Ot 780.79 OTH MALAISE FATIGUE 05/09/2017 [...] SCREEN-BACTERIAL DIS NEC 05/09/2017 GRUPO JAIN S DENIER 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 Ot 174.9 MALIGN NEOPL BREAST NOS 05/09/2017 GRUPO JAIN S DENIER 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 Ot 174.9 MALIGN NEOPL BREAST NOS 05/09/2017 DIANDRA MONTES Ot 174.9 MALIGN NEOPL BREAST NOS 05/09/2017 DIANDRA MONTES Ot 995.20 UNSP ADVERSE EFFECT OF UNSP DRUG, MEDICI 05/09/2017 GRUPO JAIN DENIER 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 Ot C50.919 MALIGNANT NEOPLASM OF UNSP [...] [ER+] 05/09/2017 DIANDRA MONTES N Ot Z79.811 LEARNING DISABILITIES RESOURCE TEACHER (CURRENT) USE OF AROMATASE INH 05/09/2017 DIANDRA [...] STATUS [ER+] 05/09/2017 SIMONDIANDRA N Ot Z79.811 INTERMEDIATE (CURRENT) USE OF AROMATASE INH 05/09/2017 DIANDRA [...] [ER+] 05/30/2017 SIMONDIANDRA ROMERO N Ot Z79.811 INTERMEDIATE (CURRENT) USE OF AROMATASE INH 05/30/2017 DIANDRA [...] [ER+] 06/09/2017 DIANDRA MONTES N Ot Z79.811 INTERMEDIATE (CURRENT) USE OF AROMATASE INH 06/09/2017 DIANDRA [...] [ER+] 07/12/2017 KENDY MONTESBENJAMIN N Ot Z79.811 LEARNING DISABILITIES RESOURCE TEACHER (CURRENT) USE OF AROMATASE INH 07/12/2017 DIANDRA [...] STATUS [ER+] 07/13/2017 DIANDRA MONTES Ot Z79.811 INTERMEDIATE (CURRENT) USE OF AROMATASE INH 07/13/2017 DIANDRA [...] EXAMINATION 09/13/2017 RIA VARGAS MD Ot V72.81 [id number]-[id number] CARDIOVASCULAR 09/13/2017 RIA VARGAS MD Ot V72.83 EXAM PRE-OPERATIVE NEC 09/13/2017 RIA VARGAS MD Ot V74.8 SCREEN-BACTERIAL DIS NEC 09/13/2017 DIANDRA MONTES Scott Ot 174.9 MALIGN NEOPL BREAST NOS 09/13/2017 DIANDRA MONTES N Ot 174.9 MALIGN NEOPL BREAST NOS 09/13/2017 GRUPO JAIN DENIER 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 Ot 174.9 MALIGN NEOPL BREAST NOS 09/13/2017 GRUPO JAIN DENIER 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 Ot 625.8 FEM GENITAL SYMPTOMS NEC 09/13/2017 GRUPO JAIN DENIER 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 Ot 793.99 OTH NOSP (ABN) FINDINGS [...] SCREEN-BACTERIAL DIS NEC 09/13/2017 GRUPO JAIN S DENIER 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 Ot 174.9 MALIGN NEOPL BREAST NOS 09/13/2017 GRUPO JAIN S DENIER 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 Ot 780.79 OTH MALAISE FATIGUE 09/13/2017 SIMONE SAHU MD Ot 574.20 CHOLELITHIASIS NOS 09/13/2017 SIMONE SAHU MD Ot 575.6 GB CHOLESTEROLOSIS 09/13/2017 JEFFREY TELLES YADIEL C Ot 574.20 CHOLELITHIASIS NOS 09/13/2017 JEFFREY TELLES, YADIEL C Ot 618.01 CYSTOCELE, MIDLINE 09/13/2017 EMMANUEL MURPHY DOA C Ot V72.63 PRE-PROCEDURAL LABORATORY EXAMINATION 09/13/2017 JEFFREY TELLES YADIEL C Ot V74.8 SCREEN-BACTERIAL DIS NEC 09/13/2017 GRUPO JAIN DENIER 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 Ot 174.9 MALIGN NEOPL BREAST NOS 09/13/2017 GRUPO JAIN DENIER 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 Ot 174.9 MALIGN NEOPL BREAST NOS 09/13/2017 DIANDRA MONTES Ot 174.9 MALIGN NEOPL BREAST NOS 09/13/2017 DIANDRA MONTES Ot 995.20 UNSP ADVERSE EFFECT OF UNSP DRUG, MEDICI 09/13/2017 GRUPO JAIN S DENIER 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 Ot C50.919 MALIGNANT NEOPLASM OF UNSP SITE OF UNSPE 09/13/2017 DIANDRA MONTES Ot C50.919 MALIGNANT NEOPLASM OF UNSP SITE OF UNSPE 09/13/2017 ADELINA BLUE, SIMONE Collins Ot E78.0 PURE HYPERCHOLESTEROLEMIA 09/13/2017 SIMONE SAHU MD Ot R06.00 DYSPNEA, UNSPECIFIED 09/13/2017 DAELINA BLUE, SIMONE Collins Ot R22.42 LOCALIZED SWELLING, [...] [ER+] 09/13/2017 DIANDRA MONTES N Ot Z79.811 INTERMEDIATE (CURRENT) USE OF AROMATASE INH 09/13/2017 SIMONDIANDRA [...] [ER+] 09/13/2017 DIANDRA MONTES N Ot Z79.811 LEARNING DISABILITIES RESOURCE TEACHER (CURRENT) USE OF AROMATASE INH 09/13/2017 DIANDRA [...] EXAMINATION 09/13/2017 RIA VARGAS MD Ot V72.81 SVBO-PNG-BPHKEEOWL CARDIOVASCULAR 09/13/2017 RIA VARGAS MD Ot V72.83 EXAM PRE-OPERATIVE NEC 09/13/2017 RIA VARGAS MD Ot V74.8 SCREEN-BACTERIAL DIS NEC 09/13/2017 DIANDRA MONTES Scott Ot 174.9 MALIGN NEOPL BREAST NOS 09/13/2017 DIANDRA MONTES Scott Ot 174.9 MALIGN NEOPL BREAST NOS 09/13/2017 GRUPO JAIN DENIER 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 Ot 174.9 MALIGN NEOPL BREAST NOS 09/13/2017 GRUPO JAIN DENIER 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 Ot 625.8 FEM GENITAL SYMPTOMS NEC 09/13/2017 GRUPO JAIN DENIER 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 Ot 793.99 OTH NOSP (ABN) FINDINGS [...] SCREEN-BACTERIAL DIS NEC 09/13/2017 GRUPO JAIN S DENIER 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 Ot 174.9 MALIGN NEOPL BREAST NOS 09/13/2017 GRUPO JAIN S DENIER 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 Ot 780.79 OTH MALAISE FATIGUE 09/13/2017 [...] SCREEN-BACTERIAL DIS NEC 09/13/2017 GRUPO JAIN S DENIER 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 Ot 174.9 MALIGN NEOPL BREAST NOS 09/13/2017 GRUPO JAIN S DENIER 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 Ot 174.9 MALIGN NEOPL BREAST NOS 09/13/2017 DIANDRA MONTES N Ot 174.9 MALIGN NEOPL BREAST NOS 09/13/2017 DIANDRA MONTES Ot 995.20 UNSP ADVERSE EFFECT OF UNSP DRUG, MEDICI 09/13/2017 GRUPO JAIN DENIER 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 Ot C50.919 MALIGNANT NEOPLASM OF UNSP [...] STATUS [ER+] 09/13/2017 DIANDRA MONTES Ot Z79.811 LEARNING DISABILITIES RESOURCE TEACHER (CURRENT) USE OF AROMATASE INH 09/13/2017 DIANDRA [...] STATUS [ER+] 09/13/2017 DIANDRA MONTES Ot Z79.811 LEARNING DISABILITIES RESOURCE TEACHER (CURRENT) USE OF AROMATASE INH 09/13/2017 DIANDRA [...] EXAMINATION 09/13/2017 RIA VARGAS MD Ot V72.81 KKDC-[id number]-IEGTUDNPG CARDIOVASCULAR 09/13/2017 RIA VARGAS MD Ot V72.83 EXAM PRE-OPERATIVE NEC 09/13/2017 RIA VARGAS MD Ot V74.8 SCREEN-BACTERIAL DIS NEC 09/13/2017 DIANDRA MONTES N Ot 174.9 MALIGN NEOPL BREAST NOS 09/13/2017 DIANDRA MONTES N Ot 174.9 MALIGN NEOPL BREAST NOS 09/13/2017 JAIN HILAH S DENIER 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 Ot 174.9 MALIGN NEOPL BREAST NOS 09/13/2017 JAIN HILAH S DENIER 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 Ot 625.8 FEM GENITAL SYMPTOMS NEC 09/13/2017 JAIN, HILAH S DENIER 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 Ot 793.99 OTH NOSP (ABN) FINDINGS [...] SCREEN-BACTERIAL DIS NEC 09/13/2017 JAIN HILAH S DENIER 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 Ot 174.9 MALIGN NEOPL BREAST NOS 09/13/2017 JAIN, HILAH S DENIER 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 Ot 780.79 OTH MALAISE FATIGUE 09/13/2017 ADELINA BLUE, SIMONE Collins Ot 574.20 CHOLELITHIASIS NOS 09/13/2017 SIMONE SAHU MD Ot 575.6 GB CHOLESTEROLOSIS 09/13/2017 YADIEL MURPHY DO Ot 574.20 CHOLELITHIASIS NOS 09/13/2017 YADIEL MURPHY DO Ot 618.01 CYSTOCELE, MIDLINE 09/13/2017 YADIEL MURPHY DO Ot V72.63 PRE-PROCEDURAL LABORATORY EXAMINATION 09/13/2017 YADIEL MURPHY DO Ot V74.8 SCREEN-BACTERIAL DIS NEC 09/13/2017 GRUPO JAIN DENIER 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 Ot 174.9 MALIGN NEOPL BREAST NOS 09/13/2017 GRUPO JAIN DENIER 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 Ot 174.9 MALIGN NEOPL BREAST NOS 09/13/2017 DIANDRA MONTES Ot 174.9 MALIGN NEOPL BREAST NOS 09/13/2017 DIANDRA MONTES Ot 995.20 UNSP ADVERSE EFFECT OF UNSP DRUG, MEDICI 09/13/2017 GRUPO JAIN DENIER 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 Ot C50.919 MALIGNANT NEOPLASM OF UNSP [...] STATUS [ER+] 09/13/2017 DIANDRA MONTES Ot Z79.811 INTERMEDIATE (CURRENT) USE OF AROMATASE INH 09/13/2017 DIANDRA [...] STATUS [ER+] 09/13/2017 DIANDRA MONTES Ot Z79.811 LEARNING DISABILITIES RESOURCE TEACHER (CURRENT) USE OF AROMATASE INH 09/13/2017 DIANDRA [...] EXAMINATION 09/14/2017 RIA VARGAS MD Ot V72.81 PHTH-WAP-OACTAZNFU CARDIOVASCULAR 09/14/2017 RIA VARGAS MD Ot V72.83 EXAM PRE-OPERATIVE NEC 09/14/2017 SAM BLUE, RIA Ot V74.8 SCREEN-BACTERIAL DIS NEC 09/14/2017 DIANDRA MONTES N Ot 174.9 MALIGN NEOPL BREAST NOS 09/14/2017 DIANDRA MONTES N Ot 174.9 MALIGN NEOPL BREAST NOS 09/14/2017 JAIN HILAH S DENIER 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 Ot 174.9 MALIGN NEOPL BREAST NOS 09/14/2017 JAIN HILAH S DENIER 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 Ot 625.8 FEM GENITAL SYMPTOMS NEC 09/14/2017 JAIN, HILAH S DENIER 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 Ot 793.99 OTH NOSP (ABN) FINDINGS [...] SCREEN-BACTERIAL DIS NEC 09/14/2017 JAIN HILAH S DENIER 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 Ot 174.9 MALIGN NEOPL BREAST NOS 09/14/2017 JAIN HILAH S DENIER 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 Ot 780.79 OTH MALAISE FATIGUE 09/14/2017 [...] SCREEN-BACTERIAL DIS NEC 09/14/2017 JAIN HILAH S DENIER 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 Ot 174.9 MALIGN NEOPL BREAST NOS 09/14/2017 JAIN HILAH S DENIER 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 Ot 174.9 MALIGN NEOPL BREAST NOS 09/14/2017 DIANDRA MONTES Ot 174.9 MALIGN NEOPL BREAST NOS 09/14/2017 DIANDRA MONTES N Ot 995.20 UNSP ADVERSE EFFECT OF UNSP DRUG, MEDICI 09/14/2017 JAINGRUPO Seymour DENIER 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 Ot C50.919 MALIGNANT NEOPLASM OF UNSP [...] STATUS [ER+] 09/14/2017 DIANDRA MONTES Ot Z79.811 LEARNING DISABILITIES RESOURCE TEACHER (CURRENT) USE OF AROMATASE INH 09/14/2017 DIANDRA MONTES N Ot Z90.11 ACQUIRED ABSENCE OF RIGHT BREAST AND NIP 09/14/2017 DIANDRA MONTES Ot M47.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 09/14/2017 DIANDRA MONTES N Ot R29.890 LOSS OF HEIGHT 09/14/2017 DIANDRA MONTES Ot M54.9 DORSALGIA, UNSPECIFIED 09/14/2017 DIANDRA MONETS Ot M85.88 OTH DISRD OF BONE DENSITY [...] STATUS [ER+] 09/14/2017 DIANDRA MONTES Ot Z79.811 LEARNING DISABILITIES RESOURCE TEACHER (CURRENT) USE OF AROMATASE INH 09/14/2017 DIANDRA [...] EXAMINATION 09/14/2017 RIA VARGAS MD Ot V72.81 QHIU-DGL-IGIFLWJBK CARDIOVASCULAR 09/14/2017 RIA VARGAS MD Ot V72.83 EXAM PRE-OPERATIVE NEC 09/14/2017 RIA VARGAS MD Ot V74.8 SCREEN-BACTERIAL DIS NEC 09/14/2017 DIANDRA MONTES N Ot 174.9 MALIGN NEOPL BREAST NOS 09/14/2017 DIANDRA MONTES N Ot 174.9 MALIGN NEOPL BREAST NOS 09/14/2017 GRUPO JAIN DENIER 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 Ot 174.9 MALIGN NEOPL BREAST NOS 09/14/2017 GRUPO JAIN DENIER 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 Ot 625.8 FEM GENITAL SYMPTOMS NEC 09/14/2017 GRUPO JAIN DENIER 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 Ot 793.99 OTH NOSP (ABN) FINDINGS [...] SCREEN-BACTERIAL DIS NEC 09/14/2017 GRUPO JAIN S DENIER 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 Ot 174.9 MALIGN NEOPL BREAST NOS 09/14/2017 GRUPO JAIN DENIER 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 Ot 780.79 OTH MALAISE FATIGUE 09/14/2017 ADELINA BLUE, SIMONE Collins Ot 574.20 CHOLELITHIASIS NOS 09/14/2017 SIMONE SAHU MD Ot 575.6 GB CHOLESTEROLOSIS 09/14/2017 EMMANUEL MURPHY DOA C Ot 574.20 CHOLELITHIASIS NOS 09/14/2017 EMMANUEL MURPHY DOA C Ot 618.01 CYSTOCELE, MIDLINE 09/14/2017 EMMANUEL MURPHY DOA C Ot V72.63 PRE-PROCEDURAL LABORATORY EXAMINATION 09/14/2017 EMMANUEL MURPHY DOA C Ot V74.8 SCREEN-BACTERIAL DIS NEC 09/14/2017 GRUPO JAIN S DENIER 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 Ot 174.9 MALIGN NEOPL BREAST NOS 09/14/2017 GRUPO JAIN S DENIER 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 Ot 174.9 MALIGN NEOPL BREAST NOS 09/14/2017 DIANDRA MONTES Ot 174.9 MALIGN NEOPL BREAST NOS 09/14/2017 DIANDRA MONTES Ot 995.20 UNSP ADVERSE EFFECT OF UNSP DRUG, MEDICI 09/14/2017 GRUPO JAIN DENIER 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 Ot C50.919 MALIGNANT NEOPLASM OF UNSP [...] STATUS [ER+] 09/14/2017 DIANDRA MONTES Ot Z79.811 INTERMEDIATE (CURRENT) USE OF AROMATASE INH 09/14/2017 SIMONDIANDRA [...] MALIG NEOPLM OF UPPER-OUTER QUADRANT OF 09/14/2017 ISMON DIANDRA Chavez Ot E78.00 PURE HYPERCHOLESTEROLEMIA, UNSPECIFIED 09/14/2017 DIANDRA MONTES N Ot I10 ESSENTIAL (PRIMARY) HYPERTENSION 09/14/2017 SIMONDIANDRA N Ot R73.9 HYPERGLYCEMIA, UNSPECIFIED 09/14/2017 SIMONDIANDRA N Ot Z17.0 ESTROGEN RECEPTOR POSITIVE STATUS [ER+] 09/14/2017 DIANDRA MONTES Ot Z79.811 LEARNING DISABILITIES RESOURCE TEACHER (CURRENT) USE OF AROMATASE INH 09/14/2017 SIMONDIANDRA [...] EXAMINATION 11/29/2017 RIA VARGAS MD Ot V72.81 GPCX-QJM-BNCMHQRIM CARDIOVASCULAR 11/29/2017 RIA VARGAS MD Ot V72.83 EXAM PRE-OPERATIVE NEC 11/29/2017 RIA VARGAS MD Ot V74.8 SCREEN-BACTERIAL DIS NEC 11/29/2017 DIANDRA MONTES Ot 174.9 MALIGN NEOPL BREAST NOS 11/29/2017 DIANDRA MONTES Ot 174.9 MALIGN NEOPL BREAST NOS 11/29/2017 GRUPO JAIN DENIER 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 Ot 174.9 MALIGN NEOPL BREAST NOS 11/29/2017 GRUPO JAIN DENIER 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 Ot 625.8 FEM GENITAL SYMPTOMS NEC 11/29/2017 GRUPO JAIN DENIER 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 Ot 793.99 OTH NOSP (ABN) FINDINGS [...] SCREEN-BACTERIAL DIS NEC 11/29/2017 GRUPO JAIN S DENIER 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 Ot 174.9 MALIGN NEOPL BREAST NOS 11/29/2017 GRUPO JAIN DENIER 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 Ot 780.79 OTH MALAISE FATIGUE 11/29/2017 SIMONE SAHU MD Ot 574.20 CHOLELITHIASIS NOS 11/29/2017 SIMONE SAHU MD Ot 575.6 GB CHOLESTEROLOSIS 11/29/2017 JEFFREY TELLES, YADIEL C Ot 574.20 CHOLELITHIASIS NOS 11/29/2017 JEFFREY TELLES, YADIEL C Ot 618.01 CYSTOCELE, MIDLINE 11/29/2017 EMMANUEL MURPHY DOA C Ot V72.63 PRE-PROCEDURAL LABORATORY EXAMINATION 11/29/2017 EMMANUEL MURPHY DOA C Ot V74.8 SCREEN-BACTERIAL DIS NEC 11/29/2017 GRUPO JAIN DENIER 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 Ot 174.9 MALIGN NEOPL BREAST NOS 11/29/2017 GRUPO JAIN DENIER 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 Ot 174.9 MALIGN NEOPL BREAST NOS 11/29/2017 DIANDRA MONTES Ot 174.9 MALIGN NEOPL BREAST NOS 11/29/2017 DIANDRA MONTES Ot 995.20 UNSP ADVERSE EFFECT OF UNSP DRUG, MEDICI 11/29/2017 GRUPO JAIN DENIER 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 Ot C50.919 MALIGNANT NEOPLASM OF UNSP [...] [ER+] 11/29/2017 SIMONKENDY ROMEROBENJAMIN N Ot Z79.811 INTERMEDIATE (CURRENT) USE OF AROMATASE INH 11/29/2017 SIMONDIANDRA [...] STATUS [ER+] 11/29/2017 SIMONDIANDRA N Ot Z79.811 INTERMEDIATE (CURRENT) USE OF AROMATASE INH 11/29/2017 DIANDRA MONTSE N Ot Z90.11 ACQUIRED ABSENCE OF RIGHT [...] COLLAPSE 12/28/2017 MONISHA RENNER MD Ot Z79.84 INTERMEDIATE (CURRENT) USE OF ORAL HYPOGLYC 12/28/2017 MONISHA [...] COLLAPSE 12/28/2017 MONISHA RENNER MD Ot Z79.84 INTERMEDIATE (CURRENT) USE OF ORAL HYPOGLYC 12/28/2017 MONISHA RENNER MD Ot Z87.891 PERSONAL HISTORY OF NICOTINE DEPENDENCE 01/02/2018 ARIK BLUE, M MARCI Ot R55 SYNCOPE AND COLLAPSE 01/23/2018 ARIK BLUE, M MARCI Ot R55 SYNCOPE AND COLLAPSE 02/02/2018 ARIK BLUE, M MARCI Ot R55 SYNCOPE AND COLLAPSE 02/02/2018 ARIK BLUE, M MARCI Ot R55 SYNCOPE AND COLLAPSE 02/21/2018 SHERRY FORTE MD Ot E11.9 TYPE 2 DIABETES MELLITUS WITHOUT COMPLIC 02/21/2018 SHERRY FORTE MD Ot E78.00 PURE HYPERCHOLESTEROLEMIA, UNSPECIFIED 02/21/2018 SHERRY FORTE MD Ot I10 ESSENTIAL (PRIMARY) HYPERTENSION 02/21/2018 SHERRY FORTE MD Ot R07.89 OTHER CHEST PAIN 02/21/2018 SHERRY FORTE MD Ot Z79.84 LEARNING DISABILITIES RESOURCE TEACHER (CURRENT) USE OF ORAL HYPOGLYC 02/21/2018 SHERRY FORTE MD Ot Z82.49 FAMILY HX OF ISCHEM HEART DIS AND OTH DI 02/21/2018 SHERRY FORTE MD Ot Z85.3 PERSONAL HISTORY OF MALIGNANT NEOPLASM O 02/21/2018 SHERRY FORTE MD Ot Z87.448 PERSONAL HISTORY OF OTHER DISEASES OF UR 02/21/2018 SHERRY FORTE MD Ot Z87.891 PERSONAL HISTORY OF NICOTINE DEPENDENCE 02/21/2018 SHERRY FORTE MD Ot Z88.0 ALLERGY STATUS TO PENICILLIN 02/21/2018 SHERRY FORTE MD Ot Z88.8 ALLERGY STATUS TO OT DRUG/MEDS/BIOL SUB 02/21/2018 SHERRY FORTE MD Ot Z90.13 ACQUIRED ABSENCE OF BILATERAL BREASTS AN 02/21/2018 SHERRY FORTE MD Ot Z90.710 ACQUIRED ABSENCE OF BOTH CERVIX AND UTER 02/21/2018 SHERRY FORTE MD Ot Z91.040 LATEX ALLERGY STATUS 02/23/2018 SHERRY FORTE MD Ot E11.9 TYPE 2 DIABETES MELLITUS WITHOUT COMPLIC 02/23/2018 SHERRY FORTE MD Ot E78.00 PURE HYPERCHOLESTEROLEMIA, UNSPECIFIED 02/23/2018 SHERRY FORTE MD Ot I10 ESSENTIAL (PRIMARY) HYPERTENSION 02/23/2018 SHERRY FORTE MD Ot R07.89 OTHER CHEST PAIN 02/23/2018 SHERRY FORTE MD Ot Z79.84 LEARNING DISABILITIES RESOURCE TEACHER (CURRENT) USE OF ORAL HYPOGLYC 02/23/2018 SHERRY FORTE MD Ot Z82.49 FAMILY HX OF ISCHEM HEART DIS AND OTH DI 02/23/2018 SHERRY FORTE MD Ot Z85.3 PERSONAL HISTORY OF MALIGNANT NEOPLASM O 02/23/2018 SHERRY FORTE MD Ot Z87.448 PERSONAL HISTORY OF OTHER DISEASES OF UR 02/23/2018 SHERRY FORTE MD Ot Z87.891 PERSONAL HISTORY OF NICOTINE DEPENDENCE 02/23/2018 SHERRY FORTE MD Ot Z88.0 ALLERGY STATUS TO PENICILLIN 02/23/2018 SHERRY FORTE MD Ot Z88.8 ALLERGY STATUS TO OT DRUG/MEDS/BIOL SUB 02/23/2018 SHERRY FORTE MD Ot Z90.13 ACQUIRED ABSENCE OF BILATERAL BREASTS AN 02/23/2018 SHERRY FORTE MD Ot Z90.710 ACQUIRED ABSENCE OF BOTH CERVIX AND UTER 02/23/2018 SHERRY FORTE MD Ot Z91.040 LATEX ALLERGY STATUS 02/27/2018 ARIK BLUE, Ayla COVARRUBIAS Ot R55 SYNCOPE AND COLLAPSE 02/28/2018 ARIK BLUE, Ayla COVARRUBIAS Ot R55 SYNCOPE AND COLLAPSE 03/05/2018 ARIK BLUE, Ayla COVARRUBIAS Ot R55 SYNCOPE AND COLLAPSE 03/05/2018 Ayla ELISE MD, Ot R55 SYNCOPE AND COLLAPSE 03/06/2018 ARIK BLUE, Ayla COVARRUBIAS Ot R55 SYNCOPE AND COLLAPSE 03/07/2018 ARIK BLUE, Ayla COVARRUBIAS Ot R55 SYNCOPE AND COLLAPSE 04/11/2018 RIA VARGAS MD Ot 174.9 MALIGN NEOPL BREAST NOS 04/11/2018 RIA VARGAS MD Ot V72.63 PRE-PROCEDURAL LABORATORY EXAMINATION 04/11/2018 RIA VARGAS MD Ot V72.81 [id number] CARDIOVASCULAR 04/11/2018 RIA VARGAS MD Ot V72.83 EXAM PRE-OPERATIVE NEC 04/11/2018 RIA VARGAS MD Ot V74.8 SCREEN-BACTERIAL DIS NEC 04/11/2018 DIANDRA MONTES Ot 174.9 MALIGN NEOPL BREAST NOS 04/11/2018 DIANDRA MONTES Ot 174.9 MALIGN NEOPL BREAST NOS 04/11/2018 GRUPO JAIN DENIER 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 Ot 174.9 MALIGN NEOPL BREAST NOS 04/11/2018 GRUPO JAIN S DENIER 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 Ot 625.8 FEM GENITAL SYMPTOMS NEC 04/11/2018 GRUPO JAIN DENIER 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 Ot 793.99 OTH NOSP (ABN) FINDINGS RADIOLOGICAL O 04/11/2018 MURPHY DO YADIEL C Ot 625.8 FEM GENITAL SYMPTOMS NEC 04/11/2018 MURPHY DO YADIEL C Ot 793.5 NOSP (ABN) FINDINGS ON RADIOLOGICAL OT 04/11/2018 MURPHY DO YADIEL C Ot 174.9 MALIGN NEOPL BREAST NOS 04/11/2018 MURPHY DO YADIEL C Ot 620.2 OVARIAN CYST NEC/NOS 04/11/2018 MURPHY DO YADIEL C Ot V72.63 PRE-PROCEDURAL LABORATORY EXAMINATION 04/11/2018 JEFFREY TELLES YADIEL C Ot V74.8 SCREEN-BACTERIAL DIS NEC 04/11/2018 GRUPO JAIN DENIER 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 Ot 174.9 MALIGN NEOPL BREAST NOS 04/11/2018 GRUPO JAIN S DENIER 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 Ot 780.79 OTH MALAISE FATIGUE 04/11/2018 ADELINA BLUE, SIMONE Collins Ot 574.20 CHOLELITHIASIS NOS 04/11/2018 ADELINA BLUE, SIMONE Collins Ot 575.6 GB CHOLESTEROLOSIS 04/11/2018 JEFFREY TELLES YADIEL C Ot 574.20 CHOLELITHIASIS NOS 04/11/2018 JEFFREY TELLES YADIEL C Ot 618.01 CYSTOCELE, MIDLINE 04/11/2018 JEFFREY TELLES YADIEL C Ot V72.63 PRE-PROCEDURAL LABORATORY EXAMINATION 04/11/2018 MURPHY DO YADIEL C Ot V74.8 SCREEN-BACTERIAL DIS NEC 04/11/2018 GRUPO JAIN DENIER 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 Ot 174.9 MALIGN NEOPL BREAST NOS 04/11/2018 GRUPO JAIN DENIER 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 Ot 174.9 MALIGN NEOPL BREAST NOS 04/11/2018 DIANDRA MONTES Ot 174.9 MALIGN NEOPL BREAST NOS 04/11/2018 DIANDRA MONTES Ot 995.20 UNSP ADVERSE EFFECT OF UNSP DRUG, MEDICI 04/11/2018 GRUPO JAIN S DENIER 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 Ot C50.919 MALIGNANT NEOPLASM OF UNSP SITE OF UNSPE 04/11/2018 DIANDRA MONTES Scott Ot C50.919 MALIGNANT NEOPLASM OF UNSP SITE OF UNSPE 04/11/2018 ADELINA BLUE, SIMONE Collins Ot E78.0 PURE HYPERCHOLESTEROLEMIA 04/11/2018 ADELINA BLUE, SIMONE Collins Ot R06.00 DYSPNEA, UNSPECIFIED 04/11/2018 SIMONE SAHU MD Ot R22.42 LOCALIZED SWELLING, MASS AND LUMP, LEFT 04/11/2018 DIANDRA MONTES Scott Ot C50.919 MALIGNANT NEOPLASM OF UNSP SITE OF UNSPE 04/11/2018 DIANDRA MONTES Scott Ot C50.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 04/11/2018 DIANDRA MONTES Scott Ot E78.00 PURE HYPERCHOLESTEROLEMIA, UNSPECIFIED 04/11/2018 DIANDRA MONTES Scott Ot I10 ESSENTIAL (PRIMARY) HYPERTENSION 04/11/2018 DIANDRA MONTES Scott Ot R73.9 HYPERGLYCEMIA, UNSPECIFIED 04/11/2018 DIANDRA MONTES Scott Ot Z17.0 ESTROGEN RECEPTOR POSITIVE STATUS [ER+] 04/11/2018 DIANDRA MONTES N Ot Z79.811 INTERMEDIATE (CURRENT) USE OF AROMATASE INH 04/11/2018 DIANDRA MONTES N Ot Z90.11 ACQUIRED ABSENCE OF RIGHT BREAST AND NIP 04/11/2018 DIANDRA MONTES N Ot M47.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 04/11/2018 DIANDRA MONTES N Ot R29.890 LOSS OF HEIGHT 04/11/2018 DIANDRA MONTES Scott Ot M54.9 DORSALGIA, UNSPECIFIED 04/11/2018 SIMON DIANDRA N Ot M85.88 OTH DISRD OF BONE DENSITY AND STRUCTURE, 04/11/2018 DIANDRA MONTES N Ot R29.890 LOSS OF HEIGHT 04/11/2018 DIANDRA MONTES N Ot Z51.81 ENCOUNTER FOR THERAPEUTIC DRUG LEVEL MON 04/11/2018 DIANDRA MONTES N Ot Z78.0 ASYMPTOMATIC MENOPAUSAL STATE 04/11/2018 ADELINA BLUE, SIMONE Collins Ot M79.604 PAIN IN RIGHT LEG 04/11/2018 SIMONE SAHU MD Ot R60.0 LOCALIZED EDEMA 04/11/2018 Ayla ELISE MD Ot R55 SYNCOPE AND COLLAPSE 04/11/2018 Ayla ELISE MD Ot R55 SYNCOPE AND COLLAPSE 05/15/2018 ADELINA BLUE, SIMONE Collins Ot Z01.818 ENCOUNTER FOR OTHER PREPROCEDURAL EXAMIN 05/15/2018 DIANDRA MONTES Scott Ot C50.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 05/15/2018 DIANDRA MONTES Ot S06.0X9A CONCUSSION W LOSS OF CONSCIOUSNESS OF UN Procedures Code Description Performed By Performed On [...] blood basophil count (count/volume) 0.1 10*3/uL 0.0-0.1 PT panel in platelet poor plasma by coagulation assay - 02/21/18 09:29 Prothrombin time (PT) in platelet poor plasma by coagulation assay 13.0 s 12.2-14.7 INR in platelet poor plasma or blood by coagulation assay 1.0 0.8-1.4 Activated partial thromboplastin time (aPTT) in platelet poor plasma bycoagulation assay - 02/21/18 09:29 Activated partial thromboplastin time (aPTT) in platelet poor plasma bycoagulation assay 32 s 24-35 Comprehensive metabolic panel - 02/21/18 09:29 Serum or plasma sodium measurement (moles/volume) 130 mmol/L 135-145 Serum or plasma potassium measurement (moles/volume) 3.3 mmol/L 3.6-5.0 Serum or plasma chloride measurement (moles/volume) 97 mmol/L 98-107 Carbon dioxide 21 mmol/L 21-32 Serum or plasma anion gap determination (moles/volume) 12 mmol/L 5-14 Serum or plasma urea nitrogen measurement (mass/volume) 13 mg/dL 7-18 Serum or plasma creatinine measurement (mass/volume) 0.80 mg/dL 0.60-1.30 Serum or plasma urea nitrogen/creatinine mass ratio 16 NRG Serum or plasma creatinine measurement with calculation of estimated glomerular filtration rate > NRG Serum or plasma glucose measurement (mass/volume) 219 mg/dL 70-105 Serum or plasma calcium measurement (mass/volume) 9.3 mg/dL 8.5-10.1 Serum or plasma total bilirubin measurement (mass/volume) 0.4 mg/dL 0.1-1.0 Serum or plasma alkaline phosphatase measurement (enzymatic activity/volume) 75 U/L 40-136 Serum or plasma aspartate aminotransferase measurement (enzymatic activity/ volume) 27 U/L 5-34 Serum or plasma alanine aminotransferase measurement (enzymatic activity/volume ) 18 U/L 0-55 Serum or plasma protein measurement (mass/volume) 7.2 g/dL 6.4-8.2 Serum or plasma albumin measurement (mass/volume) 4.1 g/dL 3.2-4.5 CALCIUM CORRECTED 9.2 mg/dL 8.5-10.1 Magnesium - 02/21/18 09:29 Magnesium 2.1 mg/dL 1.8-2.4 Serum or plasma lithium measurement (moles/volume) - 02/21/18 09:29 BNP level 34.3 pg/mL <100.0 Serum or plasma troponin i.cardiac measurement (mass/volume) - 02/21/18 09:29 Serum or plasma troponin i.cardiac measurement (mass/volume) < ng/ mL <0.30 Myoglobin, serum - 02/21/18 09:29 Myoglobin, serum 74.3 ng/mL 10.0-92.0 Capillary blood glucose measurement by glucometer (mass/volume) - 02/21/18 09: 40 Capillary blood glucose measurement by glucometer (mass/volume) 193 mg/dL 70-110 Serum or plasma troponin i.cardiac measurement (mass/volume) - 02/21/18 11:10 Serum or plasma troponin i.cardiac measurement (mass/volume) < ng/ mL <0.30 Encounters ACCT No. Visit Date/Time Discharge Status Pt. Type Provider Facility Loc./Unit Complaint [id number] 05/14/2018 09:15:00 05/14/2018 23:59:59 CLS Outpatient ADELINA BLUE, SIMONE Collins [facility] PREOP COLONOSCOPY [id number] 04/20/2018 11:16:00 04/20/2018 23:59:59 CLS Outpatient DIANDRA MONTES [facility] ONC [id number] 04/20/2018 11:08:00 04/20/2018 23:59:59 CLS Outpatient DIANDRA MONTES [facility] RAD SYNCOPE [id number] 03/05/2018 16:30:00 03/05/2018 23:59:59 CLS Preadmit Ayla ELISE MD [facility] CARD SYNCOPE [id number] 03/05/2018 00:31:00 03/05/2018 23:59:59 CLS Preadmit Ayla ELISE MD [facility] CARD SYNCOPE [id number] 02/21/2018 09:11:00 02/21/2018 12:13:00 DIS Emergency SHERRY FORTE MD [facility] ER CHEST PRESSURE [id number] 02/01/2018 09:30:00 02/02/2018 00:01:00 DIS Outpatient Ayla ELISE MD [facility] CARD SYNCOPE [id number] 12/28/2017 16:32:00 01/02/2018 00:01:00 DIS Outpatient ARIK BLUE, Ayla COVARRUBIAS [facility] CARD SYNCOPE [id number] 12/27/2017 11:50:00 12/28/2017 15:43:00 DIS Inpatient MONISHA RENNER MD [facility] 4TH SYNCOPE, POSSIBLE UNSTABLE ANGINA [id number] 11/15/2017 10:42:00 11/15/2017 15:20:00 DIS Outpatient SIMONE SAHU MD [facility] REHAB B LE EDEMA [id number] 09/14/2017 07:32:00 09/14/2017 23:59:59 CLS Outpatient SIMONE SAHU MD [facility] RAD RT LE EDEMA AND PAIN [id number] 04/13/2017 08:52:00 07/12/2017 00:01:00 DIS Outpatient DIANDRA MONTES N [facility] ONC [id number] 06/01/2017 10:10:00 06/01/2017 23:59:59 CLS Outpatient KENDY MONTESAN N [facility] RAD R29.890 LOSS OF HEIGHT, M54.9 BACK PAIN [id number] 05/09/2017 12:29:00 05/09/2017 23:59:59 CLS Outpatient DIANDRA MONTES N [facility] RAD M54.9 R29.890 [id number] 10/26/2016 09:22:00 10/26/2016 23:59:59 CLS Outpatient SIMON BOBAN N [facility] ONC [id number] 04/11/2016 09:33:00 04/11/2016 23:59:59 CLS Outpatient KENDY MONTESAN N [facility] ONC [id number] 11/26/2015 10:48:00 12/31/2015 09:55:00 DIS Outpatient SIMONE SAHU MD [facility] REHAB VENOUS INSUFF OF LE'S; SETUP COMPRESSION GARMENTS [id number] 10/19/2015 10:00:00 10/19/2015 23:59:59 CLS Outpatient SIMONE SAHU MD [facility] RAD LEFT LOWER EXTREMITY SWELLING,JEFFERSON [id number] 10/05/2015 08:53:00 10/05/2015 23:59:59 CLS Outpatient SIMONE SAHU MD [facility] LAB [id number] 10/05/2015 08:50:00 10/05/2015 23:59:59 CLS Outpatient DIANDRA MONTES [facility] ONC [id number] 04/06/2015 08:41:00 04/06/2015 23:59:59 CLS Outpatient GRUPO JAIN DENIER 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 [facility] ONC [id number] 01/05/2015 08:45:00 03/04/2015 00:01:00 DIS Outpatient DIANDRA MONTES [facility] ONC [id number] 01/08/2015 08:12:00 01/08/2015 23:59:59 CLS Outpatient DIANDRA MONTES [facility] RAD BREAST CANCER AGENTS EFFECTING ESTROGEN LEVELS [id number] 10/06/2014 09:05:00 01/04/2015 00:01:00 DIS Outpatient DIANDRA MONTES [facility] ONC [id number] 09/04/2014 16:27:00 09/08/2014 14:26:00 DIS Inpatient SIMONE SAHU MD [facility] SURGICAL ACUTE APPENDICITIS [id number] 07/14/2014 07:46:00 07/14/2014 23:59:59 CLS Outpatient 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 JAIN DENIER 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 [facility] ONC [id number] 04/14/2014 08:48:00 07/13/2014 00:01:00 DIS Outpatient DIANDRA MONTES [facility] ONC [id number] 01/07/2014 09:39:00 04/07/2014 00:01:00 DIS Outpatient DIANDRA MONTES [facility] ONC [id number] 01/07/2014 16:23:00 01/07/2014 23:59:59 CLS Outpatient GRUPO JAIN DENIER 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 [facility] ONC [id number] 12/10/2013 07:01:00 12/11/2013 11:25:00 DIS Outpatient YADIEL MURPHY DO [facility] CYSTOCELE GALL STONES [id number] 12/05/2013 14:18:00 12/05/2013 23:59:59 CLS Outpatient YADIEL MURPHY DO [facility] PREOP CYSTOCELE [id number] 11/12/2013 07:38:00 11/12/2013 23:59:59 CLS Outpatient SIMONE SAHU MD [facility] RAD RUQ PAIN [id number] 09/16/2013 09:27:00 09/16/2013 23:59:59 CLS Outpatient DIANDRA MONTES [facility] ONC [id number] 06/24/2013 12:41:00 06/24/2013 23:59:59 CLS Outpatient GRUPO JAIN [facility] ONC [id number] 03/25/2013 10:30:00 06/23/2013 00:01:00 DIS Outpatient DIANDRA MONTES [facility] ONC [id number] 05/14/2013 06:00:00 05/15/2013 11:00:00 DIS Outpatient YADIEL MURPHY DO [facility] OVARIAN CYSTS; BREAST CANCER [id number] 05/09/2013 11:38:00 05/09/2013 23:59:59 CLS Outpatient YADIEL MURPHY DO [facility] PREOP OVARIAN CYSTS;BREAST CANCER [id number] 03/06/2013 13:54:00 03/06/2013 23:59:59 CLS Outpatient YADIEL MURPHY DO [facility] RAD THICKENING EDNO,ADNEXAL MASS [id number] 12/03/2012 14:09:00 03/03/2013 00:01:00 DIS Outpatient DIANDRA MONTES [facility] ONC [id number] 12/26/2012 11:28:00 12/26/2012 23:59:59 CLS Outpatient GRUPO JAINP [facility] RAD RT ADNEXAL MASS,ABN PET [id number] 12/26/2012 08:51:00 12/26/2012 23:59:59 CLS Outpatient JAINFELIBERTOALANIS LYNNP [facility] ONC [id number] 12/11/2012 11:14:00 12/11/2012 23:59:59 CLS Outpatient DIANDRA MONTES [facility] RAD BREAST CANCER [id number] 12/07/2012 09:13:00 12/07/2012 23:59:59 CLS Outpatient DIANDRA MONTES [facility] RAD HORMONAL TREATMENT DECREASED BONE,BREAST CA [id number] 11/15/2012 22:25:00 11/16/2012 14:30:00 DIS Outpatient RIA VARGAS MD [facility] RAD RT BREAST CA [id number] 11/12/2012 08:06:00 11/12/2012 23:59:59 CLS Outpatient RIA VARGAS MD [facility] PREOP RIGHT BREAST CANCER [id number] 10/02/2012 10:07:00 10/02/2012 23:59:59 CLS Outpatient SIMONE SAHU MD [facility] RAD RT BREAST LUMP [id number] 05/18/2018 08:52:00 ACT Outpatient SIMONE SAHU MD [facility] ENDO LOWER GI BLEED [id number] 09/04/2014 16:29:00 Document Registration [id number] 09/04/2014 16:29:00 Document Registration [id number] 09/17/2012 07:24:00 Document Registration [id number] 09/04/2012 09:41:00 Document Registration [id number] 07/26/2011 11:29:00 Document Registration [id number] 07/10/2009 10:39:00 Document Registration
[2018-05-18] MEDS ORDERED: D5 LR IV SOLUTION 1,000 ML IV STA (09:18)
[2018-05-18] MEDS ORDERED: MIDAZOLAM 2 MG/2 ML (VERSED) VIAL IVP ONE (09:30)
[2018-05-18] MEDS ORDERED: D5 LR IV SOLUTION 1,000 ML IV ONE (09:30)
[2018-05-18] MEDS ORDERED: fentaNYL INJECTION 100 MCG/2 ML AMP IVP ONE (09:30)
[2018-05-18 09:50] VITALS: BP 144/69
--- NOTE | 2018-05-18 10:18 | Pre-Op Note & Conscious Sedat ---
Pre-Operative Progress Note H&P Reviewed The H&P was reviewed, patient examined and no changes noted. Date H&P Reviewed: May 18, 2018 Time H&P Reviewed: 10:18 Conscious Sedation Pre-Proced ASA Score 2 For ASA 3 and 4: Consider anesthesia and medical clearance. Also, for patients with a history of failed moderate sedation consider anesthesia. Airway Lungs Heart ASA score ASA 1: a normal healthy patient ASA 2: a patient with a mild systemic disease (mid diabetes, controlled hypertension, obesity ASA 3: a patient with a severe systemic disease that limits activity (angina , COPD, prior Myocardial infarction) ASA 4: a patient with an incapacitating disease that is a constant threat to life (CHF, renal failure) ASA 5: a moribund patient not expected to survive 24 hrs. (ruptured aneurysm) ASA 6: a declared brain patient whose organs are being harvested. For emergent operations, add the letter E after the classification Mallampati Classification Grade 2 Sedation Plan Analgesia, Amnesia, Plan communicated to team members, Discussed options with patient/fam, Discussed risks with patient/fam The patient is an appropriate candidate to undergo the planned procedure, sedation, and anesthesia. The patient immediately re-assessed prior to indication. SIMONE SAHU MD May 18, 2018 10:18
[2018-05-18] MEDS ORDERED: fentaNYL INJECTION 100 MCG/2 ML AMP ONE (10:28)
[2018-05-18] MEDS ORDERED: MIDAZOLAM 2 MG/2 ML (VERSED) VIAL ONE ×2 (10:28→10:51)
[2018-05-18] MEDS ORDERED: LIDOCAINE JELLY 2% 6 ML SYRINGE ONE (10:29)
[2018-05-18] MEDS ORDERED: LIDOCAINE JELLY 2% 6 ML SYRINGE TOP ONE (11:15)
[2018-05-18 11:25] VITALS: BP 145/64
[2018-05-18 11:55] VITALS: BP 130/65
[2018-05-18 12:20] VITALS: BP 130/65
--- NOTE | 2018-05-18 15:26 | OPERATIVE REPORT ---
DATE OF SERVICE: COLONOSCOPY SUMMARY Colonoscopy was performed for evaluation of bright red blood per rectum. The patient was placed in left lateral decubitus position. Prior to undergoing colonoscopy, digital rectal evaluation was performed. Anal sphincter tone was actually increased. Anal canal was unremarkable to digital inspection. There was an anterior rectocele with no retained stool. No other abnormalities noted on additional inspection of anal canal or distal rectal vault. The colonoscope was then inserted into the rectum under direct visualization and advanced to the cecum. The cecum was identified by identification of the ileocecal valve and the cecal strap. Photographic documentation was obtained. Careful inspection was made as the colonoscope was withdrawn. The patient did have an irritable bowel type response to air insufflation and colonic manipulation. Rectum, sigmoid colon, descending colon, transverse colon, ascending colon and cecum were unremarkable. No evidence for blood was noted at the time of the procedure. A/P: 1. Anterior rectocele was noted without evidence for stool. Anal sphincter tone was normal and the patient did have an irritable bowel type response to air insufflation and colonic manipulation. No other abnormalities were noted. The patient was reassured by today's findings. 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
== END 2018-05-18 12:20 | disposition home or self-care (01) ==
LOC: ENDO 08:52
PROVIDERS: ATTEND Internal Medicine
DX: K62.5 Hemorrhage of anus and rectum (principal); N81.6 Rectocele; I10 Essential (primary) hypertension; Z80.0 Family history of malignant neoplasm of digestive organs; Z79.899 Other long term (current) drug therapy

== ENCOUNTER → 2019-04-11 | Outpatient (CLI) | payer MEDICARE ==
[2019-04-11 09:04] LABS: BASOPHILS # (AUTO) 0.1 10^3/uL (0.0-0.1); BASOPHILS % (AUTO) 1 % (0-10); EOSINOPHILS # (AUTO) 0.1 10^3/uL (0.0-0.3); EOSINOPHILS % (AUTO) 1 % (0-10); HEMATOCRIT 43 % (35-52); HEMOGLOBIN 13.8 G/DL (11.5-16.0); LYMPHOCYTES # (AUTO) 1.7 X 10^3 (1.0-4.0); LYMPHOCYTES % (AUTO) 19 % (12-44); MEAN CORPUSCULAR HEMOGLOBIN 28 PG (25-34); MEAN CORPUSCULAR HGB CONC 32 G/DL (32-36); MEAN CORPUSCULAR VOLUME 87 FL (80-99); MEAN PLATELET VOLUME 9.2 FL (7.4-10.4); MONOCYTES # (AUTO) 0.7 X 10^3 (0.0-1.0); MONOCYTES % (AUTO) 8 % (0-12); NEUTROPHILS # (AUTO) 6.3 X 10^3 (1.8-7.8); NEUTROPHILS % (AUTO) 71 % (42-75); PLATELET COUNT 301 10^3/uL (130-400); RED CELL DISTRIBUTION WIDTH 14.4 % (10.0-14.5); WHITE BLOOD COUNT 8.9 10^3/uL (4.3-11.0)
[2019-04-11 09:26] LABS: ALANINE AMINOTRANSFERASE 22 U/L (0-55); ALBUMIN 4.4 GM/DL (3.2-4.5); ALKALINE PHOSPHATASE 90 U/L (40-136); BILIRUBIN,TOTAL 0.3 MG/DL (0.1-1.0); BUN/CREATININE RATIO 19; CALCIUM 9.9 MG/DL (8.5-10.1); CARBON DIOXIDE 25 MMOL/L (21-32); CHLORIDE 103 MMOL/L (98-107); GFR ESTIMATED > 60; GLUCOSE 77 MG/DL (70-105); SODIUM 139 MMOL/L (135-145); TOTAL PROTEIN 7.6 GM/DL (6.4-8.2)
== END ==
LOC: EDSTATUS 07-11 15:01 → ONC 08:43
PROVIDERS: ATTEND Internal Medicine Hematology & Oncology
DX: C50.911 Malignant neoplasm of unspecified site of right female breast (principal); I10 Essential (primary) hypertension; E78.00 Pure hypercholesterolemia, unspecified; Z90.12 Acquired absence of left breast and nipple; Z85.3 Personal history of malignant neoplasm of breast; Z79.890 Hormone replacement therapy
CPT/HCPCS: 36415; 80053; 85025; 99213

== ENCOUNTER → 2020-02-27 | Outpatient (CLI) | payer MEDICARE ==
[~2020-02-27] MED LIST changes: +GLIM1TAB4 PO; +HOLD METFORMIN - RECEIVED CONTRAST 20 ML VIAL IV SCH; +IOHEXOL 350 MG/ML 100 ML (OMNIPAQUE 350) VIAL IV ONE; -METO-387 PO; +MTP25TSR PO
[2020-02-27 09:19] LABS: BUN/CREATININE RATIO 22; CREATININE SERUM 0.78 MG/DL (0.60-1.30); GFR ESTIMATED > 60
--- NOTE | 2020-02-27 11:31 | Diagnostic Imaging Report ---
PROCEDURE: CT abdomen and pelvis with and without contrast. TECHNIQUE: Precontrast acquisitions were acquired through the abdomen and pelvis. Multiple contiguous axial images were obtained through the abdomen and pelvis after the administration of intravenous contrast. Auto Exposure Controls were utilized during the CT exam to meet ALARA standards for radiation dose reduction. INDICATION: Abdominal pain and hematuria The previous CT abdomen/pelvis exam of 09/04/14 noted acute appendicitis. There are also postsurgical changes consistent with prior cholecystectomy and hysterectomy. In the interval since the prior exam the patient has undergone an appendectomy. Surgical clips are seen in the region of the appendix. There is no acute abnormality involving the right lower quadrant, however. There is no pelvic mass or free fluid collection noted. On the pre-intravenous contrast series there is no sign of nephrolithiasis or urolithiasis. Following the administration of contrast, there was excretion by both kidneys. There is no solid mass identified nor is there any evidence for pyelonephritis. The urinary bladder is grossly unremarkable. The liver is prominent and of lower density than usually seen. This does suggest fatty metamorphosis. The small cyst in the left lobe of the liver seen previously is again evident and no different. The spleen, pancreas, adrenals, aorta and inferior vena cava and portal vein show no sign of an acute abnormality. The stomach is not well distended and difficult to assess. The hiatal hernia seen previously is again evident and unchanged. The lung bases are clear. The bone windows are unremarkable for a fracture or for a destructive lesion. There is degenerative disc and bony disease throughout the lumbar spine and there does appear to be trefoil stenosis at L3-L4 and L4-L5. IMPRESSION: 1. There are postsurgical changes consistent with an interval appendectomy. There is no acute abnormality identified, however. 2. There is no evidence for nephrolithiasis or urolithiasis and the kidneys do not appear to be obstructed. 3. The gallbladder and uterus are surgically absent. Dictated by: Dictated on workstation # [id number]
== END ==
LOC: RAD 09:45
PROVIDERS: ATTEND Nurse Practitioner Family
DX: R31.9 Hematuria, unspecified (principal); Z90.49 Acquired absence of other specified parts of digestive tract; Z90.711 Acquired absence of uterus with remaining cervical stump
CPT/HCPCS: 36415; 74178; 82565; 84520

== ENCOUNTER → 2020-04-09 | Outpatient (CLI) | payer MEDICARE ==
[~2020-04-09] MED LIST changes: -HOLD METFORMIN - RECEIVED CONTRAST 20 ML VIAL IV SCH; -IOHEXOL 350 MG/ML 100 ML (OMNIPAQUE 350) VIAL IV ONE
[2020-04-09 09:08] LABS: BASOPHILS # (AUTO) 0.1 10^3/uL (0.0-0.1); BASOPHILS % (AUTO) 1 % (0-10); EOSINOPHILS # (AUTO) 0.1 10^3/uL (0.0-0.3); EOSINOPHILS % (AUTO) 1 % (0-10); HEMATOCRIT 43 % (35-52); HEMOGLOBIN 13.7 g/dL (11.5-16.0); LYMPHOCYTES # (AUTO) 1.6 10^3/uL (1.0-4.0); LYMPHOCYTES % (AUTO) 16 % (12-44); MEAN CORPUSCULAR HEMOGLOBIN 28 pg (25-34); MEAN CORPUSCULAR HGB CONC 32 g/dL (32-36); MEAN CORPUSCULAR VOLUME 88 fL (80-99); MEAN PLATELET VOLUME 9.2 fL (9.0-12.2); MONOCYTES # (AUTO) 0.6 10^3/uL (0.0-1.0); MONOCYTES % (AUTO) 6 % (0-12); NEUTROPHILS % (AUTO) 77 % (42-75); PLATELET COUNT 306 10^3/uL (130-400); WHITE BLOOD COUNT 10.4 10^3/uL (4.3-11.0)
[2020-04-09 09:27] LABS: ALANINE AMINOTRANSFERASE 24 U/L (0-55); ALBUMIN 4.2 GM/DL (3.2-4.5); ALKALINE PHOSPHATASE 89 U/L (40-136); BILIRUBIN,TOTAL 0.5 MG/DL (0.1-1.0); BUN/CREATININE RATIO 23; CALCIUM 9.8 MG/DL (8.5-10.1); CARBON DIOXIDE 22 MMOL/L (21-32); CHLORIDE 101 MMOL/L (98-107); CREATININE SERUM 0.79 MG/DL (0.60-1.30); GFR ESTIMATED > 60; GLUCOSE 97 MG/DL (70-105); POTASSIUM 4.5 MMOL/L (3.6-5.0); SODIUM 136 MMOL/L (135-145); TOTAL PROTEIN 7.7 GM/DL (6.4-8.2)
== END ==
LOC: ONC 08:43
PROVIDERS: ATTEND Internal Medicine Hematology & Oncology
DX: C50.411 Malignant neoplasm of upper-outer quadrant of right female breast (principal)
CPT/HCPCS: 80053; 82306; 85025; G0463; 99213

== ENCOUNTER → 2020-04-21 | Outpatient (CLI) | payer MEDICARE ==
--- NOTE | 2020-04-21 10:18 | Diagnostic Imaging Report ---
INDICATION: Postmenopausal. COMPARISON: 05/24/2017 FINDINGS: The total T score for the spine is 0.4. On the prior exam, the T score is 0.7. The total T score for the left hip is 0.3 and for the right hip 0.2. Previously the respective T-scores were 0.5 and 0.4. The T score for the left femoral neck is -1.0 and for the right femoral neck -0.6. On the prior study, the respective T scores were -0.6 and -0.5. AP Spine L1-L4: [BMD (g/cm2): 1.244] [T-Score: 0.4] [Z-Score: 1.8] [BMD Previous: 1.283] [BMD % Change: -3.0] LT Hip Neck: [BMD (g/cm2): 0.902] [T-Score: -1.0] [Z-Score: 0.8] LT Hip Total: [BMD (g/cm2):1.045] [T-Score:0.3] [Z-Score: 1.9] [BMD Previous: 1.068] [BMD % Change: -2.2] RT Hip Neck: [BMD (g/cm2):0.960] [T-Score:-0.6] [Z-Score:1.2] RT Hip Total: [BMD (g/cm2):1.033] [T-score:0.2] [Z-Score:1.8] [BMD Previous:1.061] [BMD % Change:-2.6] *Indicates significant change from prior examination based on 95% confidence level. World Health Organization criteria for BMD interpretation classify patients as Normal (T-score at or above -1.0), Osteopenic (T-score between -1.0 and -2.5) or Osteoporotic (T-score at or below -2.5). LIMITATIONS AND MODIFICATION: None. FRACTURE RISK (FRAX SCORE): The ten year probability of (%): Major Osteoporotic Fracture: [NA] Hip Fracture: [NA] IMPRESSION: 1. There has been a slight decrease in the bone mineral density of the hips, spine and femoral necks in the interval since the prior exam. However, all the values still remain within normal limits. The T score for the left femoral neck is at the lowest end of normal, however. 2. 3. See below National Osteoporosis Foundation guidelines on when to potentially initiate pharmacologic therapy. Based on the National Osteoporosis Foundation Guidelines, pharmacologic treatment should be initiated in any of the following, unless clinical conditions suggest otherwise: * Any patient with prior fragility fracture of the hip or vertebrae. A spine fracture indicates 5X risk for subsequent spine fracture and 2X risk for subsequent hip fracture. * Osteoporosis (T-score <-2.5). * Postmenopausal women and men age 50 and older with low bone mass/osteopenia (T-score between -1.0 and -2.5) by DXA and 10-year major osteoporotic fracture greater than 20% or a 10-year probability of hip fracture greater than 3%. These fracture risks are supplied above in the FRAX score, if applicable. * Clinician judgement and/or patient preferences may indicate treatment for people with 10-year fracture probabilities above or below these levels. Dictated by: Dictated on workstation # [id number]
== END ==
LOC: RAD 09:30
PROVIDERS: ATTEND Internal Medicine Hematology & Oncology
DX: C50.919 Malignant neoplasm of unspecified site of unspecified female breast (principal); M85.80 Other specified disorders of bone density and structure, unspecified site; Z78.0 Asymptomatic menopausal state
CPT/HCPCS: 77080

== ENCOUNTER 2020-10-01 11:40 | Emergency (ER) | payer MEDICARE ==
[~2020-10-01] VITALS: Ht 160 cm; Wt 77.2 kg
--- NOTE | 2020-10-01 11:59 | ED Cardiac General ---
History of Present Illness General Stated Complaint: CHEST TIGHTNESS Source: patient Exam Limitations: no limitations History of Present Illness Date Seen by Provider: Oct 01, 2020 Time Seen by Provider: 11:57 Initial Comments To ER with reports of burning sensation across her upper chest that started earlier this morning. For the past 2 days she has had a sensation of general malaise and a pulsatile whooshing sound in both of her ears. She called her primary care provider today to make an appointment to have her blood pressure checked but was told that because of her symptoms needed to come to the emergency room. Timing/Duration: changing over time Severity: moderate Location: central Prior CP/Workup: no prior chest pain NTG SL SUGARCANE PLANTER: No ASA po SUGARCANE PLANTER: No Associated Systoms: Chest Pain Allergies and Home Medications Allergies Coded Allergies: amoxicillin (Unverified Allergy, Unknown, HIVES, 12/09/13) anastrozole (Unverified Allergy, Unknown, RASH, 12/09/13) latex (Unverified Allergy, Unknown, RASH, 12/09/13) letrozole (Verified Adverse Reaction, Unknown, "MUSCLE ACHES", 12/09/13) pravastatin (Unverified Adverse Reaction, Unknown, "MUSCLE ACHES", 12/09/13) simvastatin (Verified Adverse Reaction, Unknown, "MUSCLE ACHES", 12/09/13) Uncoded Allergies: arim (Allergy, Mild, itch and joint pain, 09/04/14) Home Medications Cholecalciferol (Vitamin D3) 2,000 Unit Capsule, 2,000 UNIT PO DAILY, (Reported) Glimepiride 1 Mg Tablet, 1 MG PO DAILY, (Reported) Indapamide 2.5 Mg Tablet, 2.5 MG PO DAILY, (Reported) Metoprolol Succinate 25 Mg Tab.er.24h, 25 MG PO DAILY, (Reported) Multivitamin with Minerals 1 Each Tablet, 1 EACH PO DAILY, (Reported) Potassium Chloride 8 Meq Tablet.er, 8 MEQ PO DAILY, (Reported) Patient Home Medication List Home Medication List Reviewed: Yes Review of Systems Review of Systems Constitutional: see HPI EENTM: No Symptoms Reported Respiratory: No Symptoms Reported Cardiovascular: See HPI, Chest Pain Gastrointestinal: No Symptoms Reported Genitourinary: No Symptoms Reported Musculoskeletal: no symptoms reported Skin: no symptoms reported Psychiatric/Neurological: No Symptoms Reported Endocrine: No Symptoms Reported Past Hkziolj-Evwyaf-Gqahlc Hx Patient Social History Former Smoker, Quit: May 14, 1967 Recent Hopitalizations: No Immunizations Up To Date Tetanus Booster (TDap): More than 5yrs PED Vaccines UTD: No Date of Pneumonia Vaccine: Jun 05, 2011 Date of Influenza Vaccine: Mar 12, 2018 Seasonal Allergies Seasonal Allergies: Yes Past Medical History Surgeries: Yes (LEFT AXILLARY lymph node removal, BILAT MASTE, NOSE SX, ) Breast, Gallbladder, Hysterectomy Respiratory: No Cardiac: Yes High Cholesterol, Hypertension Neurological: No Reproductive Disorders: No 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 Sexually Transmitted Disease: No HIV/AIDS: No Genitourinary: No Gastrointestinal: Yes Gastroesophageal Reflux Musculoskeletal: Yes (MUSCLE PAINS AND CRAMPS) Arthritis Endocrine: Yes ("borderline diabetes") Diabetes, Non-Insulin dep Cataract Loss of Vision: Bilateral Hearing Impairment: Denies Cancer: Yes (irma mastectomy) Breast Did You Recieve Any Treatments: Yes What Type of Treatment Did You: Surgical Intervention Psychosocial: No Integumentary: No Blood Disorders: No (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 9.0oz. [id number]; 31.6 BMI Method:Stated General Appearance: No Apparent Distress, WD/WN, Anxious, Other (Hypertensive at 197/98. anxious appearing. Cloniding 0.1mg ordered + 0.125mg Alprazolam) Neck: Full Range of Motion, Normal Inspection Respiratory: No Accessory Muscle Use, No Respiratory Distress Cardiovascular: Regular Rate, Rhythm, Normal Peripheral Pulses Gastrointestinal: Normal Bowel Sounds, Non Tender, Soft Extremity: Normal Capillary Refill, Normal Inspection Neurologic/Psychiatric: Alert, Oriented x3 Skin: Normal Color, Warm/Dry Progress/Results/Core Measures Results/Orders Lab Results Laboratory Tests Test 10/01/20 12:06 10/01/20 14:00 Range/Units White Blood Count 9.9 4.3-11.0 10^3/uL Red Blood Count 4.83 3.80-5.11 10^6/uL Hemoglobin 14.1 11.5-16.0 g/dL Hematocrit 43 35-52 % Mean Corpuscular Volume 88 80-99 fL Mean Corpuscular Hemoglobin 29 25-34 pg Mean Corpuscular Hemoglobin Concent 33 32-36 g/dL Red Cell Distribution Width 13.2 10.0-14.5 % Platelet Count 284 130-400 10^3/uL Mean Platelet Volume 8.9 L 9.0-12.2 fL Immature Granulocyte % (Auto) 1 % Neutrophils (%) (Auto) 82 H 42-75 % Lymphocytes (%) (Auto) 12 12-44 % Monocytes (%) (Auto) 5 0-12 % Eosinophils (%) (Auto) 0 0-10 % Basophils (%) (Auto) 1 0-10 % Neutrophils # (Auto) 8.1 H 1.8-7.8 10^3/uL Lymphocytes # (Auto) 1.1 1.0-4.0 10^3/uL Monocytes # (Auto) 0.5 0.0-1.0 10^3/uL Eosinophils # (Auto) 0.0 0.0-0.3 10^3/uL Basophils # (Auto) 0.1 0.0-0.1 10^3/uL Immature Granulocyte # (Auto) 0.1 0.0-0.1 10^3/uL Prothrombin Time 12.9 12.2-14.7 SEC INR Comment 0.9 0.8-1.4 Activated Partial Thromboplast Time 33 24-35 SEC Sodium Level 135 135-145 MMOL/L Potassium Level 4.2 3.6-5.0 MMOL/L Chloride Level 99 98-107 MMOL/L Carbon Dioxide Level 26 21-32 MMOL/L Anion Gap 10 5-14 MMOL/L Blood Urea Nitrogen 16 7-18 MG/DL Creatinine 0.82 0.60-1.30 MG/DL Estimat Glomerular Filtration Rate > 60 BUN/Creatinine Ratio 20 Glucose Level 119 H 70-105 MG/DL Calcium Level 9.7 8.5-10.1 MG/DL Corrected Calcium 9.5 8.5-10.1 MG/DL Magnesium Level 2.0 1.6-2.4 MG/DL Total Bilirubin 0.4 0.1-1.0 MG/DL Aspartate Amino Transf (AST/SGOT) 26 5-34 U/L Alanine Aminotransferase (ALT/SGPT) 24 0-55 U/L Alkaline Phosphatase 87 40-136 U/L Myoglobin 99.7 H 10.0-92.0 NG/ML Troponin I < 0.028 < 0.028 <0.028 NG/ML B-Type Natriuretic Peptide 26.3 <100.0 PG/ML Total Protein 7.6 6.4-8.2 GM/DL Albumin 4.3 3.2-4.5 GM/DL My Orders Orders - CORRINE MARINELLI [employer]RTR[employer] 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 OR 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 CLERK Cbc With Automated Diff (10/01/20 11:55) Magnesium (10/01/20 11:55) Chest 1 View, Ap/Pa Only (10/01/20 11:55) Ekg Tracing (10/01/20 11:55) Comprehensive Metabolic Panel (10/01/20 11:55) Myoglobin Serum (10/01/20 11:55) Protime With Inr (10/01/20 11:55) Partial Thromboplastin Time (10/01/20 11:55) O2 (10/01/20 11:55) Monitor-Rhythm Ecg Trace Only (10/01/20 11:55) Lipid Panel (10/02/20 06:00) Ed Iv/Invasive Line Start (10/01/20 11:55) BNP (10/01/20 11:55) Aspirin Chewable Tablet (Baby Aspirin Ch (10/01/20 12:00) Clonidine Tablet (Catapres Tablet) (10/01/20 12:00) Alprazolam Tablet (Xanax Tablet) (10/01/20 12:00) Troponin I (10/01/20 12:06) Troponin I (10/01/20 13:57) Medications Given in ED Current Medications Medications Dose Ordered Sig/Lucy Route Start Time Stop Time Status Last Admin Dose Admin Aspirin 324 mg ONCE ONCE PO 10/01/20 12:00 10/01/20 12:01 DC 10/01/20 12:08 324 MG Clonidine HCl 0.1 mg ONCE ONCE PO 10/01/20 12:00 10/01/20 12:01 DC 10/01/20 12:07 0.1 MG Vital Signs/I&O 4/29/21 11:43 Temp 36.2 Pulse 75 Resp 18 B/P (MAP) 197/98 (131) Pulse Ox 97 O2 Delivery Room Air Departure Communication (Admissions) 1300-laying in bed blood pressure is down to 125/67. States that she is feeling much better. Son is at the bedside. Advised her will do a repeat troponin at 2 PM. If still negative she can go home. 1451-still asymptomatic. Blood pressure 126/71. Heart rate 72 sinus. Impression Primary Impression: Hypertension Disposition: 01 HOME, SELF-CARE Condition: Stable Departure-Patient Inst. Decision time for Depature: 14:45 Referrals: SIMONE SAHU MD (PCP/Family) Primary Care Physician Patient Instructions: High Blood Pressure in Adults Copy Copies To 1: SIMONE SAHU MD, PETER J APRN Oct 01, 2020 11:59
[2020-10-01] MEDS ORDERED: ALPRAZolam 0.25 MG (XANAX) TAB PO SCH (12:00)
[2020-10-01] MEDS ORDERED: ASPIRIN 81 MG CHEW (CHILDREN'S ASA) PO ONE (12:00)
[2020-10-01] MEDS ORDERED: cloNIDine 0.1 MG (CATAPRES) TAB PO ONE (12:00)
[2020-10-01 12:12] LABS: BASOPHILS # (AUTO) 0.1 10^3/uL (0.0-0.1); BASOPHILS % (AUTO) 1 % (0-10); EOSINOPHILS % (AUTO) 0 % (0-10); HEMATOCRIT 43 % (35-52); HEMOGLOBIN 14.1 g/dL (11.5-16.0); LYMPHOCYTES # (AUTO) 1.1 10^3/uL (1.0-4.0); LYMPHOCYTES % (AUTO) 12 % (12-44); MEAN CORPUSCULAR HEMOGLOBIN 29 pg (25-34); MEAN CORPUSCULAR HGB CONC 33 g/dL (32-36); MEAN CORPUSCULAR VOLUME 88 fL (80-99); MEAN PLATELET VOLUME 8.9 fL (9.0-12.2); MONOCYTES # (AUTO) 0.5 10^3/uL (0.0-1.0); MONOCYTES % (AUTO) 5 % (0-12); NEUTROPHILS # (AUTO) 8.1 10^3/uL (1.8-7.8); NEUTROPHILS % (AUTO) 82 % (42-75); PLATELET COUNT 284 10^3/uL (130-400); WHITE BLOOD COUNT 9.9 10^3/uL (4.3-11.0)
--- NOTE | 2020-10-01 12:26 | Diagnostic Imaging Report ---
EXAMINATION: Portable erect AP chest at 12:21 p.m. INDICATION: Chest pain. The heart size is within normal limits and stable when compared to 02/21/2018. The lungs remain clear. There is still no sign of failure, pneumonia or pleural effusion to indicate an acute abnormality. The chronic pulmonary changes seen on the previous study are again evident and no different. The mediastinum is not widened. The osseous structures are intact. IMPRESSION: There is no evidence for an acute cardiopulmonary abnormality. Dictated by: Dictated on workstation # [id number]
[2020-10-01 12:29] LABS: INR 0.9 (0.8-1.4); PROTHROMBIN TIME PATIENT 12.9 SEC (12.2-14.7)
[2020-10-01 12:42] LABS: ALANINE AMINOTRANSFERASE 24 U/L (0-55); ALBUMIN 4.3 GM/DL (3.2-4.5); ALKALINE PHOSPHATASE 87 U/L (40-136); BILIRUBIN,TOTAL 0.4 MG/DL (0.1-1.0); BUN/CREATININE RATIO 20; CALCIUM 9.7 MG/DL (8.5-10.1); CARBON DIOXIDE 26 MMOL/L (21-32); CHLORIDE 99 MMOL/L (98-107); CREATININE SERUM 0.82 MG/DL (0.60-1.30); GFR ESTIMATED > 60; GLUCOSE 119 MG/DL (70-105); POTASSIUM 4.2 MMOL/L (3.6-5.0); SODIUM 135 MMOL/L (135-145); TOTAL PROTEIN 7.6 GM/DL (6.4-8.2)
[2020-10-01 14:51] VITALS: BP 126/71
== END 2020-10-01 14:51 | disposition home or self-care (01) ==
LOC: EDUNIT# 11:40 → ER 11:42
DX: I10 Essential (primary) hypertension (principal); E11.9 Type 2 diabetes mellitus without complications; Z88.1 Allergy status to other antibiotic agents; Z91.040 Latex allergy status; Z88.8 Allergy status to other drugs, medicaments and biological substances; Z87.891 Personal history of nicotine dependence; Z79.899 Other long term (current) drug therapy
CPT/HCPCS: 36415; 71045; 80053; 83735; 83874; 83880; 84484; 85025; 85610; 85730; 93005; 93041

== ENCOUNTER → 2021-03-24 | Outpatient (CLI) | payer MEDICARE | LOC: LABNPT 08:39 | PROVIDERS: ATTEND Internal Medicine | DX: R50.9 Fever, unspecified (principal); Z20.822 Contact with and (suspected) exposure to COVID-19 | CPT/HCPCS: 87635; 87804 ==

== ENCOUNTER → 2021-04-14 | Outpatient (CLI) | payer MEDICARE ==
[2021-04-14 09:30] LABS: BASOPHILS # (AUTO) 0.1 10^3/uL (0.0-0.1); BASOPHILS % (AUTO) 1 % (0-10); EOSINOPHILS # (AUTO) 0.3 10^3/uL (0.0-0.3); EOSINOPHILS % (AUTO) 3 % (0-10); HEMATOCRIT 42 % (35-52); HEMOGLOBIN 13.8 g/dL (11.5-16.0); LYMPHOCYTES # (AUTO) 1.5 10^3/uL (1.0-4.0); LYMPHOCYTES % (AUTO) 16 % (12-44); MEAN CORPUSCULAR HEMOGLOBIN 29 pg (25-34); MEAN CORPUSCULAR HGB CONC 33 g/dL (32-36); MEAN CORPUSCULAR VOLUME 88 fL (80-99); MEAN PLATELET VOLUME 9.1 fL (9.0-12.2); MONOCYTES # (AUTO) 0.7 10^3/uL (0.0-1.0); MONOCYTES % (AUTO) 7 % (0-12); NEUTROPHILS # (AUTO) 7.4 10^3/uL (1.8-7.8); NEUTROPHILS % (AUTO) 74 % (42-75); PLATELET COUNT 275 10^3/uL (130-400)
[2021-04-14 09:54] LABS: ALBUMIN 4.1 GM/DL (3.2-4.5); BILIRUBIN,TOTAL 0.3 MG/DL (0.1-1.0); CALCIUM 9.6 MG/DL (8.5-10.1); CREATININE SERUM 0.88 MG/DL (0.60-1.30); POTASSIUM 4.2 MMOL/L (3.6-5.0); TOTAL PROTEIN 7.4 GM/DL (6.4-8.2)
== END ==
LOC: ONC 09:13
PROVIDERS: ATTEND Internal Medicine Hematology & Oncology
DX: C50.411 Malignant neoplasm of upper-outer quadrant of right female breast (principal); E78.00 Pure hypercholesterolemia, unspecified; I10 Essential (primary) hypertension; E66.9 Obesity, unspecified; Z90.12 Acquired absence of left breast and nipple; Z90.11 Acquired absence of right breast and nipple
CPT/HCPCS: 80053; 85025; G0463; 99213

== ENCOUNTER 2021-09-04 13:13 | Emergency (ER) | payer MEDICARE ==
[~2021-09-04] VITALS: Ht 160 cm; Wt 65.0 kg
[~2021-09-04 13:13] MED LIST changes: +MULT-1054 PO; -MULT-985 PO
[2021-09-04 13:18] VITALS: BP 174/86
[2021-09-04 13:40] LABS: BASOPHILS # (AUTO) 0.1 10^3/uL (0.0-0.1); BASOPHILS % (AUTO) 1 % (0-10); EOSINOPHILS % (AUTO) 0 % (0-10); HEMATOCRIT 41 % (35-52); HEMOGLOBIN 13.4 g/dL (11.5-16.0); LYMPHOCYTES # (AUTO) 1.5 10^3/uL (1.0-4.0); LYMPHOCYTES % (AUTO) 15 % (12-44); MEAN CORPUSCULAR HEMOGLOBIN 29 pg (25-34); MEAN CORPUSCULAR HGB CONC 33 g/dL (32-36); MEAN CORPUSCULAR VOLUME 88 fL (80-99); MEAN PLATELET VOLUME 9.1 fL (9.0-12.2); MONOCYTES # (AUTO) 0.5 10^3/uL (0.0-1.0); MONOCYTES % (AUTO) 5 % (0-12); NEUTROPHILS # (AUTO) 7.5 10^3/uL (1.8-7.8); NEUTROPHILS % (AUTO) 79 % (42-75); PLATELET COUNT 301 10^3/uL (130-400); WHITE BLOOD COUNT 9.6 10^3/uL (4.3-11.0)
[2021-09-04 13:45] LABS: ALBUMIN 4.1 GM/DL (3.2-4.5); CHLORIDE 103 MMOL/L (98-107); POTASSIUM 4.1 MMOL/L (3.6-5.0); SODIUM 139 MMOL/L (135-145)
[2021-09-04 13:46] LABS: CALCIUM 9.2 MG/DL (8.5-10.1)
[2021-09-04 13:47] LABS: FIBRIN DEGRADATION PRODUCTS 0.55 UG/ML (0.00-0.49); GLUCOSE 100 MG/DL (70-105); INR 0.9 (0.8-1.4)
[2021-09-04 13:48] LABS: TOTAL PROTEIN 7.3 GM/DL (6.4-8.2)
[2021-09-04 13:49] LABS: BILIRUBIN,TOTAL 0.3 MG/DL (0.1-1.0); CARBON DIOXIDE 19 MMOL/L (21-32)
--- NOTE | 2021-09-04 13:50 | ED Neurological Problem ---
General Chief Complaint: Altered Mental Status Stated Complaint: EPISODE OF SLURRING WORDS/BLACKED OUT History of Present Illness Date Seen by Provider: Sep 04, 2021 Time Seen by Provider: 13:18 Initial Comments 76-year-old female presents with her family, she is ambulatory with a steady gait. They reported approximately noon today she had slurred speech and transient memory loss, it lasted 3-4 mintues. She has "spells" regularly, she is unsure of the cause. She has been seen by her primary care provider for these. Symptoms during her "spells" include a warm feeling in her chest or abdomen that radiates to her arms or legs. It usually lasts less than 5 minutes. Denies chest pain or SOA. No history of strokes, TIAs, seizures or cardiac history. Accu-Chek is 78. She denies any complaints at this time. Family believes there was some drooping to the left side of her mouth, this is not present in ED. Patient reports "bleeding disorder" no specific diagnosis, could not determine testing for factor deficiency or other abnormality, she can't take Aspirin per Dr. Montelongo because of this. Occasionally has blood in stool, but not regularly. She has history of cardiac work up with Dr. Lima in the last 2-3 years. She now sees Dr. Interiano and last appt was Jun 2021. Timing/Duration: 1-3 hours Associated Symptoms: denies symptoms; No confusion, No loss of consciousness, No nausea/vomiting, No paresthesia, No ringing in ears, No seizures, No sleepy; slurred speech (at noon today, no at present time); No tingling in legs/feet, No trouble walking, No vision changes, No weakness (DONITA WELSH) Allergies and Home Medications Allergies Coded Allergies: amoxicillin (Unverified Allergy, Unknown, HIVES, 12/09/13) anastrozole (Unverified Allergy, Unknown, RASH, 12/09/13) latex (Unverified Allergy, Unknown, RASH, 12/09/13) letrozole (Verified Adverse Reaction, Unknown, "MUSCLE ACHES", 12/09/13) pravastatin (Unverified Adverse Reaction, Unknown, "MUSCLE ACHES", 12/09/13) simvastatin (Verified Adverse Reaction, Unknown, "MUSCLE ACHES", 12/09/13) Uncoded Allergies: arim (Allergy, Mild, itch and joint pain, 09/04/14) Patient Home Medication List Home Medication List Reviewed: Yes (DONITA WELSH) Apixaban (Eliquis) 2.5 Mg Tablet, 2.5 MG PO BID Prescribed by: DONITA WELSH on 09/04/21 164 Atorvastatin Calcium (Lipitor) 20 Mg Tablet, 20 MG PO DAILY Prescribed by: DONITA WELSH on 09/04/21 1645 Cholecalciferol (Vitamin D3) (Vitamin D3) 2,000 Unit Capsule, 2,000 UNIT PO DAILY, (Reported) Entered as Reported by: BE BRIGGS on 12/27/17 1200 Glimepiride (Glimepiride) 1 Mg Tablet, 1 MG PO DAILY, (Reported) Entered as Reported by: BE BRIGGS on 12/27/17 1147 Indapamide (Indapamide) 2.5 Mg Tablet, 2.5 MG PO DAILY, (Reported) Entered as Reported by: BE BRIGGS on 12/27/17 1147 Metoprolol Succinate (Metoprolol Succinate) 25 Mg Tab.er.24h, 25 MG PO DAILY, (Reported) Entered as Reported by: JONATAN GUALLPA on 05/14/18909 Multivitamin with Minerals (Hair, Skin & Nails) 1 Each Tablet, 1 EACH PO DAILY, (Reported) Entered as Reported by: JONATAN GUALLPA on 05/14/18909 Potassium Chloride (Potassium Chloride) 8 Meq Tablet.er, 8 MEQ PO DAILY, (Reported) Entered as Reported by: JONATAN GUALLPA on 05/14/18909 Review of Systems Review of Systems Constitutional: no symptoms reported, see HPI Eyes: No Symptoms Reported, See HPI; Denies Blurred Vision Ears, Nose, Mouth, Throat: no symptoms reported, see HPI Respiratory: no symptoms reported, see HPI Cardiovascular: no symptoms reported, see HPI Gastrointestinal: no symptoms reported, see HPI Genitourinary: no symptoms reported, see HPI Musculoskeletal: no symptoms reported, see HPI Skin: no symptoms reported, see HPI Psychiatric/Neurological: No Symptoms Reported, See HPI Endocrine: No Symptoms Reported, See HPI Hematologic/Lymphatic: No Symptoms Reported, See HPI (DONITA WELSH) All Other Systems Reviewed Negative Unless Noted: Yes (DONITA WELSH) Past Lupeefs-Mvkjzu-Xjglhy Hx Patient Social History Tobacco Use?: No Use of E-Cig and/or Vaping dev: No Substance use?: No Alcohol Use?: No Pt feels they are or have been: No (DONITA WELSH) Immunizations Up To Date Tetanus Booster (TDap): More than 5yrs PED Vaccines UTD: No Influenza Vaccine Up-to-Date: Yes; Up-to-Date (DONITA WELSH) Seasonal Allergies Seasonal Allergies: Yes (DONITA WELSH) Past Medical History Surgeries: Yes (LEFT AXILLARY lymph node removal, BILAT MASTE, NOSE SX, ) Breast, Gallbladder, Hysterectomy Respiratory: No Cardiac: Yes High Cholesterol, Hypertension Neurological: No Reproductive Disorders: No Female Reproductive Disorders: Ovarian Cyst [employer] History: Hysterectomy Sexually Transmitted Disease: No HIV/AIDS: No Genitourinary: No Gastrointestinal: Yes Gastroesophageal Reflux Musculoskeletal: Yes (MUSCLE PAINS AND CRAMPS) Arthritis Endocrine: Yes ("borderline diabetes") Diabetes, Non-Insulin dep Cataract Loss of Vision: Bilateral Hearing Impairment: Denies Cancer: Yes (irma mastectomy) Breast Did You Recieve Any Treatments: Yes What Type of Treatment Did You: Surgical Intervention Psychosocial: No Integumentary: No Blood Disorders: No (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 9.0oz. [id number]; 30.00 BMI Method:Stated General Appearance: WD/WN, no apparent distress HEENT: PERRL/EOMI, normal ENT inspection, TMs normal, pharynx normal (DONITA WELSH) Stroke Onset of Symptoms Date of Onset of Symptoms: Sep 04, 2021 Time of Symptom Onset: 12:00 Onset of Symptoms: Yes (DONITA WELSH) NIH Stroke Scale Assessment Select: Initial Level of Consciousness: 0=Alert (0), Level of Consciousness- Questions: 0=Answers both month/age (0), LOC Commands: 0=Performs both tasks (0), Gaze: Normal (0), Visual Geronimo: 1=Partial hemianopia (1), Facial Movement (Facial Paresis): 0=Normal symmetrical mnt (0), Motor Function-Arms Right: 0=No drift (0), Motor Function-Arms Left: 0=No drift (0), Motor Function-Legs Right: 0=No drift (0), Motor Function-Legs Left: 0=No drift (0), Limb Ataxia: 0=Absent (0), Sensory: 0=Normal:no loss (0), Best Language: 0=No aphasia (0), Dysarthria: 0=Normal (0), Extinction & Inattention: 0=No abnormality (0), Total: 1 Stroke Thrombolytic Exclusion Age 18 or Over: Yes Acute intenal hemorrhage: No History of CVA: No Uncontrolled Coagulation Defec: No Intracranial Hemorrhage: No Severe Hypertension: No GI or Bleed: No Subarachnoid Hemorrhage: No Intracranial Neoplasm/Aneurysm: No Oral Anticoagulants: No Surgery or Trauma: No Puncture of Non-Compressible V: No Recent CPR: No Diabetic Hemorrhagic Retinopat: No Organ Biopsy: No Recent Obstetric Delivery: No Glucose: No Significant Hepatic Dysfunctio: No NIH Stoke Scale >22: No Bacterial Endocarditis: No Pericarditis: No Improving Symptoms: No Platelets: No TPA Contraindication: No (DONITA WELSH) IV - TPa Received IV - TPa Procedure Performed?: No (DONITA WELSH) Focused Exam Time of Focused Exam: 15:30 Respiratory: Chest Non Tender, Lungs Clear, Normal Breath Sounds Cardiovascular: Regular Rate, Rhythm, No Edema, Normal Peripheral Pulses Capillary Refill: Less Than 3 Seconds Skin: normal color, warm/dry; No rash, No ulcerations (DONITA WELSH) Progress/Results/Core Measures Results/Orders Lab Results Laboratory Tests Test 09/04/21 13:22 09/04/21 13:28 09/04/21 14:44 Range/Units Glucometer 87 70-110 MG/DL White Blood Count 9.6 4.3-11.0 10^3/uL Red Blood Count 4.62 3.80-5.11 10^6/uL Hemoglobin 13.4 11.5-16.0 g/dL Hematocrit 41 35-52 % Mean Corpuscular Volume 88 80-99 fL Mean Corpuscular Hemoglobin 29 25-34 pg Mean Corpuscular Hemoglobin Concent 33 32-36 g/dL Red Cell Distribution Width 13.5 10.0-14.5 % Platelet Count 301 130-400 10^3/uL Mean Platelet Volume 9.1 9.0-12.2 fL Immature Granulocyte % (Auto) 0 % Neutrophils (%) (Auto) 79 H 42-75 % Lymphocytes (%) (Auto) 15 12-44 % Monocytes (%) (Auto) 5 0-12 % Eosinophils (%) (Auto) 0 0-10 % Basophils (%) (Auto) 1 0-10 % Neutrophils # (Auto) 7.5 1.8-7.8 10^3/uL Lymphocytes # (Auto) 1.5 1.0-4.0 10^3/uL Monocytes # (Auto) 0.5 0.0-1.0 10^3/uL Eosinophils # (Auto) 0.0 0.0-0.3 10^3/uL Basophils # (Auto) 0.1 0.0-0.1 10^3/uL Immature Granulocyte # (Auto) 0.0 0.0-0.1 10^3/uL Prothrombin Time 13.0 12.2-14.7 SEC INR Comment 0.9 0.8-1.4 Activated Partial Thromboplast Time 34 24-35 SEC D-Dimer 0.55 H 0.00-0.49 UG/ML Sodium Level 139 135-145 MMOL/L Potassium Level 4.1 3.6-5.0 MMOL/L Chloride Level 103 98-107 MMOL/L Carbon Dioxide Level 19 L 21-32 MMOL/L Anion Gap 17 H 5-14 MMOL/L Blood Urea Nitrogen 16 7-18 MG/DL Creatinine 0.74 0.60-1.30 MG/DL Estimat Glomerular Filtration Rate 83 BUN/Creatinine Ratio 22 Glucose Level 100 70-105 MG/DL Calcium Level 9.2 8.5-10.1 MG/DL Corrected Calcium 9.1 8.5-10.1 MG/DL Total Bilirubin 0.3 0.1-1.0 MG/DL Aspartate Amino Transf (AST/SGOT) 24 5-34 U/L Alanine Aminotransferase (ALT/SGPT) 23 0-55 U/L Alkaline Phosphatase 79 40-136 U/L Troponin I < 0.028 <0.028 NG/ML Total Protein 7.3 6.4-8.2 GM/DL Albumin 4.1 3.2-4.5 GM/DL Triglycerides Level 116 <150 MG/DL Cholesterol Level 263 H < 200 MG/DL LDL Cholesterol Direct 191 H 1-129 MG/DL HDL Cholesterol 68 H 40-60 MG/DL Urine Color YELLOW Urine Clarity CLEAR Urine pH 7.5 5-9 Urine Specific [place] 1.015 L 1.016-1.022 Urine Protein NEGATIVE NEGATIVE Urine Glucose (UA) NEGATIVE NEGATIVE Urine Ketones 1+ H NEGATIVE Urine Nitrite NEGATIVE NEGATIVE Urine Bilirubin NEGATIVE NEGATIVE Urine Urobilinogen 0.2 < = 1.0 MG/DL Urine Leukocyte Esterase NEGATIVE NEGATIVE Urine RBC (Auto) NEGATIVE NEGATIVE Urine RBC 0-2 /HPF Urine WBC 0-2 /HPF Urine Squamous Epithelial Cells 0-2 /HPF Urine Renal Epithelial Cells NONE /HPF Urine Crystals NONE /LPF Urine Bacteria TRACE /HPF Urine Casts NONE /LPF Urine Mucus NEGATIVE /LPF Urine Culture Indicated NO (KAREN ALMENDAREZ MD) Medications Given in ED Current Medications Medications Dose Ordered Sig/Lucy Route Start Time Stop Time Status Last Admin Dose Admin Iohexol 75 ml ONCE ONCE IV 09/04/21 14:45 09/04/21 14:46 DC 09/04/21 14:55 75 ML Sodium Chloride 100 ml ONCE ONCE IV 09/04/21 14:45 09/04/21 14:46 DC 09/04/21 14:55 80 ML (KAREN ALMENDAREZ MD) Vital Signs/I&O 09/04/21 09/04/21 09/04/21 13:18 13:18 16:53 Temp 36.6 36.7 Pulse 89 89 96 Resp 18 18 18 B/P (MAP) 174/86 (115) 174/86 148/72 Pulse Ox 96 96 96 O2 Delivery Room Air Room Air (KAREN ALMENDAREZ MD) Progress Progress Note : Time: 13:18 Progress Note NIH 0, patient seen and evaluated, will obtain labs, EKG, chest x-ray and CT head. ABCD2 score 2 points (low risk). 1350 patient continues to have no symptoms. There is no facial drooping, no difficulty conversing. CT neg for acute findings. 1430 Will obtain CTA to assess carotids. 1530 CTA showed 70% LICA stenosis. 1600 spoke to [facility], Dr. Montesinos. Recommended dual anti-platelet therapy (ASA and Eliquis) and high dose statin. Can discharge to home. Follow up with Dr. Interiano and consider referral to Neurologist by PCP. 1615 spoke with patient and family for an extensive amount of time discussing recommendations. She is concerned with starting aspirin and an anticoagulant with history of GI bleeding. When discussed further she reports occasionally she will have a hemorrhoid that causes bleeding. She does not have extensive bleeding if she gets a paper cut or other injury to her skin. Discussed risks of stroke versus bleeding/hemorrhage. She will consider this and discuss with Dr. Montelongo early next week. Stressed the importance to start both the medications and the statin as soon as possible. Discharge instructions and return precautions reviewed with the patient. (DONITA WELSH) Initial ECG Impression Date: Sep 04, 2021 Initial ECG Impression Time: 13:28 Initial ECG Rate: 78 Initial ECG Rhythm: Normal Sinus Initial ECG Intervals: Normal Initial ECG Impression: Normal Initial ECG Comparisson: Unchanged Comment VA 154, QRSD 95, QT 410, QTc 468. [place] P 64, QRS 49, T 35. (DONITA WELSH) Diagnostic Imaging Diagonstic Imaging: Xray Plain Films/CT/US/NM/MRI: chest Comments NAME: ROSY [facility]ILL[facility] REC#: [id number] PT STATUS: REG ER : 1945 PHYSICIAN: DONITA WELSH ADMIT DATE: 09/04/21/ER Draft Date of Exam:09/04/21 CHEST 1 VIEW, AP/PA ONLY INDICATION: Altered mental status, dyspnea. COMPARISON: 10/01/2020. DISCUSSION: Single portable upright view of the chest was obtained. The lungs remain hyperinflated. Normal heart size. No consolidation, pleural fluid, or pneumothorax. No osseous abnormality. IMPRESSION: Negative chest. Dictated on workstation # [id number] Dict: 09/04/21 1346 Trans: 09/04/21 1348 [id number] Interpreted by: JASSI BRANDON MD Electronically signed by: Reviewed: Reviewed by Ri Diagonstic Imaging: CT Plain Films/CT/US/NM/MRI: head Comments NAME: ROSY MILLER [facility] REC#: [id number] PT STATUS: REG ER : 1945 PHYSICIAN: DONITA WELSH ADMIT DATE: 09/04/21/ER Draft Date of Exam:09/04/21 CT HEAD WO-R/O STROKE PROCEDURE: CT head without r/o stroke. TECHNIQUE: Multiple contiguous axial images were obtained through the brain without the use of intravenous contrast. Auto Exposure Controls were utilized during the CT exam to meet ALARA standards for radiation dose reduction. INDICATION: Altered mental status, syncope, slurring words. COMPARISON: None. DISCUSSION: Diffuse brain volume loss is likely age related. White matter hypoattenuation is nonspecific though not greater than expected for age related chronic small vessel ischemic disease. No acute intracranial hemorrhage, mass, midline shift, or hydrocephalus. The orbits, sinuses, mastoid air cells, and calvarium are unremarkable. IMPRESSION: Senescent changes as described. No acute intracranial abnormality identified. Dictated on workstation # [id number] Dict: 09/04/21 1346 Trans: 09/04/21 1349 [id number] Interpreted by: JASSI BRANDON MD Electronically signed by: Reviewed: Reviewed by Ri Diagonstic Imaging: CT Plain Films/CT/US/NM/MRI: c-spine, head Comments [facility] [id number] PT STATUS: REG ER : 1945 PHYSICIAN: DONITA WELSH ADMIT DATE: 09/04/21/ER Draft Date of Exam:09/04/21 CT ANGIO HEAD/NECK Procedure: CT angiography of the head and CT angiography of the neck with and without contrast. Technique: Contiguous noncontrast images were obtained from the skull base through the vertex. After intravenous contrast administration, helical CT angiography of the neck was performed. Source data was reformatted into 3D MIP projections. Delayed post contrast acquisition was also obtained. Auto Exposure Controls were utilized during the CT exam to meet ALARA standards for radiation dose reduction. Indication: Followup near syncopal episode, slurred speech, altered mental status. Comparison: Head CT earlier today. Discussion: CTA head: Intracranial arterial luminal enhancement and morphology are normal without focal stenosis, major vessel cut off, aneurysm, or vascular malformation. The [place] of [place] is complete. Visualized venous structures are unremarkable. CTA neck: The arch has conventional branch configuration. The vertebral arteries are codominant. The carotid arteries bifurcate midneck. Mild atherosclerotic plaque within the right carotid bifurcation with no significant stenosis. There is dense atherosclerotic plaque within the left carotid bifurcation with approximately 70% stenosis of the origin of the left internal carotid artery. The visualized soft tissues are unremarkable. Impression: 1. No acute intracranial arterial abnormality. 2. Atherosclerotic plaque within the origin of the left internal carotid artery contributing to proximal 70% stenosis. Dictated on workstation # [id number] Dict: 09/04/21 1510 Trans: 09/04/21 1519 [id number] Interpreted by: JASSI BRANDON MD Electronically signed by: Reviewed: Reviewed by Me (DONITA WELSH) Departure Impression Primary Impression: Slurred speech Additional Impression: Atherosclerosis of left carotid artery Disposition: 01 HOME, SELF-CARE Condition: Improved Departure-Patient Inst. Decision time for Depature: 16:00 (DONITA WELSH) Referrals: SIMONE MONTELONGO MD (PCP/Family) Primary Care Physician Patient Instructions: Carotid Artery Disease (DC), Going Home on Blood Thinners , Transient Ischemic Attack (DC) Add. Discharge Instructions: Take an aspirin 81 mg once daily. Take the Eliquis 1 tablet twice daily as prescribed. Start the Lipitor at 20 mg, 1 tablet once a day after 2 weeks you can increase it to 2 tablets once daily. Call Dr. Montelongo's office on Monday for follow-up and referral to a neurologist. Call Dr. Interiano's office on Monday for follow-up appointment. Return to the emergency department for altered mental status, difficulty speaking, facial droop, or any other concerns. All discharge instructions reviewed with patient and/or family. Voiced understanding. Scripts Atorvastatin Calcium (Lipitor) 20 Mg Tablet 20 MG PO DAILY, #40 TAB 0 Refills Prov: DONITA WELSH 09/04/21 Apixaban (Eliquis) 2.5 Mg Tablet 2.5 MG PO BID, #60 TAB 0 Refills Prov: DONITA WELSH 09/04/21 ATTENDING PHYSICIAN NOTE: I was physically present as attending physician in the emergency department during the care of this patient. I discussed the approach and plan of care with Donita WELSH NP. I advised evaluation with CT angiogram head and neck and consultation with stroke neurologist at [facility]. I agree with her plan of care and approach to work-up. (KAREN ALMENDAREZ MD) Copy Copies To 1: SIMONE MONTELONGO MD; LINUS INTERIANO MD, AMY ARNP Sep 04, 2021 13:50 KAREN ALMENDAREZ MD Sep 04, 2021 19:10
[2021-09-04 13:51] LABS: ALKALINE PHOSPHATASE 79 U/L (40-136); CREATININE SERUM 0.74 MG/DL (0.60-1.30); GFR ESTIMATED 83
[2021-09-04 13:52] LABS: BUN/CREATININE RATIO 22
[2021-09-04 13:54] LABS: ALANINE AMINOTRANSFERASE 23 U/L (0-55)
[2021-09-04] MEDS ORDERED: HOLD METFORMIN - RECEIVED CONTRAST 20 ML VIAL IV SCH (14:45)
[2021-09-04] MEDS ORDERED: NS 100 ML (IVPB) BAG IV ONE (14:45)
[2021-09-04] MEDS ORDERED: NS IV 1000 ML 1,000 ML IV SCH (14:45)
[2021-09-04] MEDS ORDERED: IOHEXOL 350 MG/ML 100 ML (OMNIPAQUE 350) VIAL IV ONE (14:45)
[2021-09-04 14:50] LABS: BILIRUBIN,URINE NEGATIVE (NEGATIVE); CLARITY,URINE CLEAR; COLOR,URINE YELLOW; GLUCOSE, URINE (UA) NEGATIVE (NEGATIVE); KETONES,URINE 1+ (NEGATIVE); LEUKOCYTE ESTERASE ,URINE NEGATIVE (NEGATIVE); NITRITE,URINE NEGATIVE (NEGATIVE); PH,URINE 7.5 (5-9); PROTEIN,URINE NEGATIVE (NEGATIVE)
[2021-09-04 15:01] LABS: BACTERIA,URINE TRACE /HPF; RBC,URINE 0-2 /HPF; SQUAMOUS EPITHELIAL CELL,UR 0-2 /HPF; WBC,URINE 0-2 /HPF
--- NOTE | 2021-09-04 15:19 | Diagnostic Imaging Report ---
Procedure: CT angiography of the head and CT angiography of the neck with and without contrast. Technique: Contiguous noncontrast images were obtained from the skull base through the vertex. After intravenous contrast administration, helical CT angiography of the neck was performed. Source data was reformatted into 3D MIP projections. Delayed post contrast acquisition was also obtained. Auto Exposure Controls were utilized during the CT exam to meet ALARA standards for radiation dose reduction. Indication: Followup near syncopal episode, slurred speech, altered mental status. Comparison: Head CT earlier today. Discussion: CTA head: Intracranial arterial luminal enhancement and morphology are normal without focal stenosis, major vessel cut off, aneurysm, or vascular malformation. The [place] is complete. Visualized venous structures are unremarkable. CTA neck: The arch has conventional branch configuration. The vertebral arteries are codominant. The carotid arteries bifurcate midneck. Mild atherosclerotic plaque within the right carotid bifurcation with no significant stenosis. There is dense atherosclerotic plaque within the left carotid bifurcation with approximately 70% stenosis of the origin of the left internal carotid artery. The visualized soft tissues are unremarkable. Impression: 1. No acute intracranial arterial abnormality. 2. Atherosclerotic plaque within the origin of the left internal carotid artery contributing to proximal 70% stenosis. Dictated by: Dictated on workstation # [id number]
[2021-09-04] MEDS ORDERED: ATOR20TA49 PO (16:45)
[2021-09-04] MEDS ORDERED: APIX2.5T PO (16:45)
[2021-09-04 16:53] VITALS: BP 148/72
[2021-09-04 18:11] LABS: TRIGLYCERIDES 116 MG/DL (<150)
[2021-09-04 18:16] LABS: CHOLESTEROL 263 MG/DL (< 200); HDL CHOLESTEROL 68 MG/DL (40-60)
== END 2021-09-04 16:55 | disposition home or self-care (01) ==
LOC: EDUNIT# 13:13 → ER 13:15
DX: I65.22 Occlusion and stenosis of left carotid artery (principal)
CPT/HCPCS: 36415; 70450; 70496; 70498; 71045; 80053; 81000; 82465; 82947; 83718; 83721; 84478; 84484; 85025; 85379; 85610; 85730; 93005; 93041

== ENCOUNTER → 2021-09-08 | Outpatient (CLI) | payer MEDICARE ==
[~2021-09-08] MED LIST changes: +APIX2.5T PO; +ATOR20TA49 PO
== END ==
LOC: CARD 15:00
PROVIDERS: ATTEND Physician Assistant
DX: I10 Essential (primary) hypertension (principal); I08.0 Rheumatic disorders of both mitral and aortic valves
CPT/HCPCS: 93306